=== PATIENT | female | born 1945 | race Caucasian/White ===

== ENCOUNTER 2023-02-07 10:59 | Inpatient (IN) | payer MEDICARE, OTHER ==
[~2023-02-07] VITALS: Ht 149.9 cm; Wt 76.4 kg
[2023-02-07] MEDS ORDERED: ACETAMINOPHEN 325 MG TABLET PO PRN (13:00)
[2023-02-07] MEDS ORDERED: LOPERAMIDE 2 MG CAPSULE PO PRN (13:00)
[2023-02-07] MEDS ORDERED: CALCIUM CARBONATE 500 MG CHEW TABLET PO PRN (13:00)
[2023-02-07] MEDS ORDERED: ONDANSETRON 4 MG ORAL DISSOLVE TABLET PO PRN (13:00)
[2023-02-07] MEDS ORDERED: LACTULOSE SYRUP 10GM/15ML 30ML UDC PO PRN (13:00)
[2023-02-07] MEDS ORDERED: guaiFENesin/CODEINE 10ML UDC PO PRN (13:00)
[2023-02-07] MEDS ORDERED: Sodium Phosphate/Sodium Biphosphate ADULT enema PR PRN (13:00)
[2023-02-07] MEDS ORDERED: diphenhydrAMINE 25 MG TABLET PO PRN (13:00)
[2023-02-07] MEDS ORDERED: ALPRAZolam 0.25 MG TABLET PO PRN (13:00)
[2023-02-07] MEDS ORDERED: BISACODYL 10 MG SUPPOSITORY PR PRN (13:00)
[2023-02-07] MEDS ORDERED: DOCUSATE SODIUM 100 MG CAPSULE PO PRN (13:00)
[2023-02-07] MEDS ORDERED: MELATONIN 3 MG TABLET PO PRN (13:00)
--- NOTE | 2023-02-07 13:00 | PM&R Post Admission Assessment ---
PM&R Date of Visit: Feb 07, 2023 Time of Visit: 18:00 History of Present Illness Chief complaint: Severe pain and slow recovery following lumbar spine surgery HPI: This is a 77-year-old female of Dr. Gonzalez who presents from [facility] following an extensive lumbar spine surgery by Dr. Richard. She had surgery on 02/05/2023 and has had difficulty recovering and ambulating. She has a longstanding history of lumbar stenosis with neurogenic claudication and underwent the L3-4 TLIF/extension PSIF by Dr. Richard. Her reports she does become irritable and noncompliant for 4 days after anesthesia events. She did transport by nonemergent EMS due to inability to sit in a chair. I did speak with head of physical therapy who will take more time with her to enable her to recover. Her did report that she has been decreasing motivation for the past 1 year without any medical reason for that. Past Qpbbnvu-Sviecn-Amcnsq Hx Past Med/Social Hx: Reviewed Nursing Past Med/Soc Hx, Reviewed and Corrections made Patient Social History Marrital Status: Employed/Student: retired Alcohol Use: Denies Use Smoking Status: Never a Smoker Past Medical History Surgeries: Orthopedic Cardiac: High Cholesterol, Hypertension Genitourinary: Bladder Infection Overactive bladder Musculoskeletal: Arthritis, Chronic Back Pain PM&R Allergy/Meds/Data Review Allergies Coded Allergies: No Allergy Information Available (Unverified , 02/07/23) Home Medications Scheduled Amlodipine Besylate (Amlodipine Besylate), 5 MG PO DAILY, (Reported) Cetirizine HCl (Cetirizine HCl), 5 MG PO DAILY, (Reported) Cholecalciferol (Vitamin D3) (Vitamin D3), 25 MCG PO DAILY, (Reported) Hydrochlorothiazide (Hydrochlorothiazide), 25 MG PO DAILY, (Reported) Oxybutynin Chloride (Oxybutynin Chloride), 5 MG PO BID, (Reported) Rosuvastatin Calcium (Rosuvastatin Calcium), 5 MG PO DAILY, (Reported) Valsartan/Hydrochlorothiazide (Valsartan-Hctz 160-12.5 mg Tab), 1 EACH PO DAILY, (Reported) Vit B Cmplx 3/FA/Vit C/Biotin ([place]-[facility] Rx Tablet), 1 EACH PO DAILY, (Reported) Scheduled PRN Acetaminophen (Tylenol Extra Strength), 1,000 MG PO Q6H PRN for PAIN-MILD (1-4), (Reported) Cyclobenzaprine HCl (Cyclobenzaprine HCl), 10 MG PO Q8H PRN for SPASMS, (Reported) Famotidine (Acid Junior Assistant Manager (FAMOTIDINE)), 20 MG PO DAILY PRN for HEARTBURN, (Reported) Oxycodone HCl (Oxycodone HCl), 5 MG PO Q4H PRN for PAIN-SEVERE (8-10), (Repo rted) Current Medications Current Medications Reviewed Review of Systems Constitutional: see HPI, malaise, weakness EENTM: no symptoms reported Respiratory: no symptoms reported Cardiovascular: no symptoms reported Gastrointestinal: no symptoms reported Genitourinary: no symptoms reported Musculoskeletal: back pain, joint pain Skin: no symptoms reported Psychiatric/Neurological: No Symptoms Reported All Other Systems Reviewed Negative Unless Noted: Yes Physical Exam Physical Exam Vital Signs Capillary Refill : Height, Weight, BMI Height: '" Weight: lbs. oz. kg; BMI Method: General Appearance: WD/WN, Chronically ill, Mild Distress Eyes: Bilateral Eye Normal Inspection, Bilateral Eye PERRL HEENT: PERRL/EOMI, Normal ENT Inspection, Pharynx Normal Neck: Full Range of Motion, Normal Inspection, Non Tender, Supple, Carotid Bruit Respiratory: Chest Non Tender, Lungs Clear, Normal Breath Sounds, No Accessory Muscle Use, No Respiratory Distress Cardiovascular: Regular Rate, Rhythm, No Edema, No Gallop, No JVD, No Murmur, Normal Peripheral Pulses Gastrointestinal: Normal Bowel Sounds, No Organomegaly, No Pulsatile Mass, Non Tender, Soft Back: CVA Tenderness (L), CVA Tenderness (R), Decreased Range of Motion, Muscle Spasm, Vertebral Tenderness, Other (Wearing brace) Extremity: Normal Capillary Refill, Normal Inspection, Normal Range of Motion, Non Tender, No Calf Tenderness, No Pedal Edema Neurologic/Psychiatric: Alert, Oriented x3, 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 Norm as Tested, Abnormal Gait, Depressed Affect, Motor Weakness ( severe in lower extremities) Skin: Normal Color, Warm/Dry Lymphatic: No Adenopathy PM&R Medical Assessment & Plan REHAB/MEDICAL ASSESSMENT AND PLAN: REHAB IMPAIRMENT GROUP: Lumbar stenosis with neurogenic claudication ETIOLOGIC DIAGNOSIS: Lumbar stenosis with neurogenic claudication The comorbidities that impact the patients function and/or functional outcome by: advanced age, severe pain, slow recovery, anesthesia effect complicating motivation and comprehension REHAB PLAN: The patient is being admitted to our comprehensive inpatient rehabilitation facility and can tolerate the intensity of service consisting of at least: 180 minutes of therapy a day, 5 out of 7 days a week Rehab treatment will consist of: PT and OT will focus on regaining function with use of assistive devices and slowly initiate therapy in order to support patient's success in inpatient rehab The patient/family has a good understanding of our discharge process and will benefit from an interdisciplinary inpatient rehabilitation program. The patient has potential to make improvement and is in need of at least two of the fo llowing multidisciplinary therapies including but not limited to physical, occupational, speech, and prosthetics and orthotics. Additionally the patient will need services from respiratory, nutritional services, wound care, psychology, etc. (Customize this to each patient). Given the patients complex condition and risk of further medical complications, rehabilitation services can not be safely or effectively provided at a lower level of care such as a [facility] facility. BARRIERS TO DISCHARGE: severe slow recovery ESTIMATED LOS: 10 days DISPOSITION: home RELEVANT CHANGES SINCE PREADMISSION SCREENING: I have compared the patients medical and functional status at the time of the preadmission screening and there are: no changes PROGNOSIS: good REHABILITATION GOALS: 1. PT and OT will focus on regaining function with use of assistive devices and slowly initiate therapy in order to support patient's success in inpatient rehab All the above goals were reviewed with the patient and he/she is in agreement. By signing this document, I acknowledge that I have personally performed a full physical examination on this patient within 24 hours of admission to this inpatient rehabilitation facility and have determined the patient to be able to tolerate the above course of treatment at an intensive level for a reasonable period of time. I will be completing a detailed individualized Plan of Care for this patient by day #4 of the patients stay based upon the Preadmission Screen, the Post-Admission Evaluation, and the therapy evaluations. Admission Dx/Comorbidities: (1) Lumbar stenosis with neurogenic claudication ICD Codes: M48.062 - Spinal stenosis, lumbar region with neurogenic claudication Assessment/Plan Assessment and Plan Assess & Plan/Chief Complaint Assessment: Lumbar stenosis with neurogenic claudication status post L3-4 TLIFextension PSIF on 02/05/[address] Richard Hypertension Hyperlipidemia Advanced age Slow recovery Plan: Supportive care Monitor closely Pain controlled Slow therapy JANNIE TORRES DO Feb 07, 2023 13:00
[2023-02-07] MEDS ORDERED: HYDR25TA4 PO (13:02)
[2023-02-07] MEDS ORDERED: VIT1TABL59 PO (13:02)
[2023-02-07] MEDS ORDERED: CETI5TAB6 PO (13:02)
[2023-02-07] MEDS ORDERED: ROSU5TAB13 PO (13:02)
[2023-02-07] MEDS ORDERED: AMLO-250 PO (13:02)
[2023-02-07] MEDS ORDERED: CYCL10TA25 PO (13:02)
[2023-02-07] MEDS ORDERED: FAMO-356 PO (13:02)
[2023-02-07] MEDS ORDERED: CHOL10004 PO (13:02)
[2023-02-07] MEDS ORDERED: VALS1TAB75 PO (13:02)
[2023-02-07] MEDS ORDERED: OXYB5TAB13 PO (13:02)
[2023-02-07] MEDS ORDERED: ACET-2267 PO (13:02)
[2023-02-07] MEDS ORDERED: OXYC5TAB PO (13:02)
[2023-02-07 13:30] VITALS: BP 128/53
--- OUTSIDE RECORDS SUMMARY | 2023-02-07 13:49 | XMS REPORT | Summary of Care ---
Author Author [employer] Address Unknown Phone Unavailable Care Team Providers Care Garment Turner Name Role Phone PCP Unavailable Reason for Referral * Radiology Services (Routine) - Closed Specialty Diagnoses / Procedures Referred By Contac t Referred To Contact Diagnoses Generalized pain Procedures XR FLUORO LESS THAN 1 HOUR Ed Richard DO [address] [place] [address] Referral ID Status Reason Start Date Expiration Date Visits Re quested Visits Authorized [id number] Closed 02/05/2023 03/07/2024 1 1 Reason for Visit * Radiology Services (Routine) - Closed Specialty Diagnoses / Procedures Referred By Contac t Referred To Contact Diagnoses Generalized pain Procedures XR FLUORO LESS THAN 1 HOUR Ed Richard DO [address] [place] [address] Referral ID Status Reason Start Date Expiration Date Visits Re quested Visits Authorized [id number] Closed 02/05/2023 03/07/2024 1 1 Encounter Details Date Type Department Care Team Description 02/05/2023 6:30 AM CDT - 02/05/2023 11:59 PM CDT Hospital Encounter [facility] Radiology [id number] [place] [phone] Ed Richard DO [address] [place] [address] [place] [phone] Arrived Discharge Disposition: Home or Self Care Allergies Active Allergy Reactions Criticality Noted Date Comments Amoxicillin Cough Low 06/24/2012 Test does of Ancef given 02/05/23, tolerated it well. With no s.s. of reaction noted. Lisinopril Anaphylaxis High 03/09/2015 documented as of this encounter (statuses as of 02/06/2023) Medications Medication Sig Dispensed Refills Start Date End Date Status famotidine (PEPCID) 20 mg tablet Take 20 mg by mouth 1 time daily as needed. 0 Suspended cholecalciferol, vitamin D3, 1,000 unit Take 1,000 Units by mouth daily. 0 Suspended cetirizine (ZyrTEC) 5 mg tablet Take 5 mg by mouth daily. 0 Suspended meloxicam (MOBIC) 15 mg tablet TAKE 1 TABLET(15 MG) BY MOUTH DAILY 90 Tablet 1 07/05/2022 Suspended Additional Information amLODIPine (NORVASC) 5 mg tablet TAKE 1 TABLET(5 MG) BY MOUTH DAILY 100 Tablet 1 07/29/2022 Suspended Additional Information hydroCHLOROthiazid e 25 mg tablet TAKE 1 TABLET(25 MG) BY MOUTH DAILY 100 Tablet 1 08/26/2022 Suspended Additional Information valsartan-hydroCHL OROthiazide (DIOVAN HCT) 160-12.5 mg tablet Take 1 Tablet by mouth daily. 0 11/22/2022 Suspended vit B cmplx 3-FA-Vit C-Biotin (RENAVITE-RX RX) 1-60-300 mg-mg-mcg Tablet Take 1 Tablet by mouth daily. 0 Suspended diazePAM (Valium) 5 mg tabletIndications: Lumbar stenosis with neurogenic claudication Take 1 TAB PO 30 min before MRI, bring a front end driver 1 Tablet 0 01/22/2023 Suspended Additional Information oxyBUTYnin (DITROPAN) 5 mg tablet Take 5 mg by mouth 2 times daily. 0 01/14/2023 Suspended rosuvastatin (CRESTOR) 5 mg tablet Take 5 mg by mouth daily. 0 01/14/2023 Suspended acetaminophen (TYLENOL) 500 mg tablet Take 1,000 mg by mouth every 6 hours as needed for Pain. 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 documented as of this encounter (statuses as of 02/06/2023) Immunizations Name Administration Dates Next Due (MODERNA BIVALENT)(6 MOS UP) COVID-19 VACCINE - EMERGENCY USE AUTHORIZATION, MRNA (PF) 50 MCG/0.5 ML IM SUSP 02/28/2022 (SPIKEVAX) (12 YRS UP PRIMAR Y SERIES) COVID-19 VACCINE - MRNA-1273(PF) 100 MCG/0.5 ML IM SUSP 04/09/2021,08/13/2020,07/16/2020 INFLUENZA VACCINE HIGH DOSE QUADRIVALENT 65 YR UP PF IM 03/13/2022 INFLUENZA VACCINE QUADRIVALE NT 3 YR UP PF IM 03/05/2018,03/06/2017,02/29/2016 INFLUENZA VACCINE QUADRIVALE NT 6 MOS UP PF IM 03/13/2022,03/22/2021,03/08/2020,03/11 Influenza Vaccine High Dose 65+ Yrs IM 5 Influenza Vaccine Split 3+ Yrs IM 03/04/2014,07/2012 Pneumococcal 13-valent Conju gate Vaccine 09/12/2016 Pneumococcal Polysaccharide Vacc 23-yash IM SCHIP 09/30/2014 documented as of this encounter Social History Tobacco Use Types Packs/Day Years Used Date Smoking Tobacco: Former Cigarettes Q uit: 06/16/1999 Smokeless Tobacco: Never Alcohol Use Standard Drinks/Week Comments Yes 0 (1 standard drink = 0.6 oz pur e alcohol) occasional Financial Resource Strain Answer Date R ecorded How hard is it for you to pa y for the very basics like food, housing, medical care, and heating? Patient refused 03/25/2022 Food Insecurity Answer Date Recorded In the past 12 months, have you worried that your food would run out before you had money to buy more? Patient refused 2021 In the past 12 months, did y ou run out of food and didn't have money to buy more? Patient refused 03/25/2022 Transportation Needs Answer Date Record ed In the past 12 months, has l ack of transportation kept you from medical appointments or from getting medications? No 03/25/2022 Lack of Transportation (Non-Medical) Not on file Sex and Gender Information Value Date Recorded Sex Assigned at Not on file Gender Identity Not on file Sexual Orientation Not on file documented as of this encounter Plan of Treatment Upcoming Encounters Date Type Department Care Team Description 02/20/2023 11:30 AM CDT Office Visit [facility] Orthopedics [place] [address] [place] [phone] Ed Richard DO [address] [facility] [address] [place] [address] [place] [phone] Health Maintenance Due Date Last Done Comments DTAP/TDAP/TD VACCINES (1 - Tdap) 1964 COLORECTAL SCREENING 11/19/1991 Colorectal Cancer Screening 11/19/1991 FIT-DNA Q 3 years 11/19/1991 FIT/FOBT Q 1 year 11/19/1991 Flex Sig/CT Colonography Q 5 years 11/19/1991 ZOSTER VACCINE (1 of 2) 1996 COVID-19 Vaccine (5 - Modern a series) 06/30/2022 02/28/2022, 04/09/2021, 08/13/2020, Additional history exists INFLUENZA VACCINE (#1) 2022 , 03/13/2022, 03/22/2021, Additional history exists Traditional Medicare (ACO) A nnual Wellness Visit 03/26/2023 03/25/2022, 03/22/2021 PNEUMOCOCCAL VACCINE 65+ YEARS Completed 09/12/2016 , 09/30/2014 OSTEOPOROSIS SCREENING Completed 03/04/2017, 2016 documented as of this encounter Medical Devices Implanted Type Area Ultrasound Coordinator Device Identifier Shelf Expiration Date Model / Serial / Lot Simplex W/Tobra 6197-9-001 - [id number] Implanted:Qty : 1 on 06/25/2013 by Lamberto Gómez MD Cement Left: Knee [employer] 11/23/2014 [id number] / / [id number] Lens Io Tecnis 1pc 21.5 [id number] - [id number] Implanted:Qty : 1 on 11/08/2013 Eye Left: Eye [employer] 05/02/2017 [id number] / [id number] / Hemostatic Surgiflo 8ml W/ Thrombin 2994 - [id number] Implanted:Qty : 1 on 02/05/2023 by Ed Richard DO at [facility] Hemostatic N/A: Spine Lumbar [employer] [id number] 11/30/2023 2994 / / [id number] Patella Trthln Asym X3 5551-G-299 - [id number] Implanted:Qty : 1 on 06/25/2013 by Lamberto Gómez MD Knee Left: Knee [employer] 05/25/2018 [id number]-G-[id number] / / [id number] Reline-O 5.5x 50mm Lordotic [id number] - [id number] Implanted:Qty : 2 on 02/05/2023 by Ed Richard DO at [facility] Fox N/A: Back [employer] [id number] / / Screw Reline 5.5mm Open Tulip [id number] - [id number] Implanted:Qty : 2 on 02/05/2023 by Ed Richard DO at [facility] Screw N/A: Back [employer] [id number] / / Spacer Sable 8 [id number] 6-12mm 1172.2110s - [id number] Implanted:Qty : 1 on 02/05/2023 by Ed Richard DO at [facility] Spacer N/A: Spine Lumbar [employer] [id number] 11/12/2032 1172.2110S / / [id number] Allograft Osteocel Lrg 10ml [id number] - [id number] Implanted:Qty : 1 on 02/05/2023 by Ed Richard DO at [facility] Tissue N/A: Spine Lumbar [employer] 07/25/2027 [id number] / [id number] / documented as of this encounter Procedures Procedure Name Priority Date/Time Associated Diagnosis Comments XR FLUORO LESS THAN 1 HOUR Routine 02/05/2023 3:14 PM CDT Generalized pain documented in this encounter Results * XR FLUORO LESS THAN 1 HOUR (02/05/2023 3:14 PM CDT) Narrative 02/05/2023 3:14 PM CDT Order information only. Exam was auto-finalized. Ed Richard DO DIAGNOSTIC IMAGING O RDERABLES documented in this encounter Visit Diagnoses Diagnosis Generalized pain documented in this encounter Advance Directives For more information, please contact: [phone] Latest Code Status on File Code Status Date Activated Date Inactivated Comments Full Code 02/05/2023 4:25 PM Code Status History Code Status Date Activated Date Inactivated Comments Full Code 02/05/2023 10:07 AM 02/05/2023 4:25 PM
--- OUTSIDE RECORDS SUMMARY | 2023-02-07 13:49 | XMS REPORT | Summary of Care ---
Author Author [employer] Address Unknown Phone Unavailable Care Team Providers Care Perianesthesia Manager Name Role Phone PCP Unavailable Encounter Details Date Type Department Care Team Description 01/23/2023 8:45 AM CDT - 01/23/2023 11:59 PM CDT Hospital Encounter [facility] Pre Admission Testing [id number] [place] [phone] Ed Richard DO [address] [place] [address] [place] [id number] Arrived Discharge Disposition: Home or Self Care Allergies Active Allergy Reactions Criticality Noted Date Comments Amoxicillin Cough Low 06/24/2012 Lisinopril Anaphylaxis High 03/09/2015 documented as of this encounter (statuses as of 01/24/2023) Medications Medication Sig Dispensed Refills Start Date End Date Status famotidine (PEPCID) 20 mg tablet Take 20 mg by mouth 1 time daily as needed. 0 Active cholecalciferol, vitamin D3, 1,000 unit Take 1,000 Units by mouth daily. 0 Active cetirizine (ZyrTEC) 5 mg tablet Take 5 mg by mouth daily. 0 Active meloxicam (MOBIC) 15 mg tablet TAKE 1 TABLET(15 MG) BY MOUTH DAILY 90 Tablet 1 07/05/2022 Active amLODIPine (NORVASC) 5 mg tablet TAKE 1 TABLET(5 MG) BY MOUTH DAILY 100 Tablet 1 07/29/2022 Active hydroCHLOROthiazide 25 mg tablet TAKE 1 TABLET(25 MG) BY MOUTH DAILY 100 Tablet 1 08/26/2022 Active valsartan-hydroCHLOROt hiazide (DIOVAN HCT) 160-12.5 mg tablet Take 1 Tablet by mouth daily. 0 11/22/2022 Active vit B cmplx 3-FA-Vit C-Biotin (RENAVITE-RX RX) 1-60-300 mg-mg-mcg Tablet Take 1 Tablet by mouth daily. 0 Active diazePAM (Valium) 5 mg tabletIndications:Lumb ar stenosis with neurogenic claudication Take 1 TAB PO 30 min before MRI, bring a double bottom driver 1 Tablet 0 01/22/2023 Active oxyBUTYnin (DITROPAN) 5 mg tablet Take 5 mg by mouth 2 times daily. 0 01/14/2023 Active rosuvastatin (CRESTOR) 5 mg tablet Take 5 mg by mouth daily. 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 documented as of this encounter (statuses as of 01/24/2023) Immunizations Name Administration Dates Next Due (MODERNA [...] Cigarettes Q uit: 06/16/1999 Smokeless Tobacco: Never Tobacco Cessation:Counseling Given: Not Answered Alcohol Use Standard Drinks/Week Comments Not Currently 0 (1 standard drink = 0.6 oz pur e alcohol) Financial Resource Strain Answer Date R ecorded [...] on file documented as of this encounter Last Filed Vital Signs Vital Sign Reading Time Taken Comments Blood Pressure 160/72 01/23/2023 10:22 AM CDT Pulse 69 01/23/2023 10:22 AM CDT Temperature 36.7 C (98.1 F) 01/23/2023 10:22 AM C DT Respiratory Rate 16 01/23/2023 10:22 AM CDT Oxygen Saturation 98% 01/23/2023 10:22 AM CDT Inhaled Oxygen Concentration - - Weight 75.3 kg (166 lb) 01/23/2023 10:22 AM CDT Height 149.9 cm (4' 11") 01/23/2023 10:22 AM CDT Body Mass Index 33.53 01/23/2023 10:22 AM CDT documented in this encounter Discharge Instructions * Discharge Instructions* Jeanette Sanchez LPN - 01/23/2023 9:15 AM CDT THINGS TO REMEMBER ABOUT YOUR SURGERY ARRIVAL INSTRUCTIONS: [x] Enter through the Main Entrance on February 05 at 10:00 AM for an 11:30 AM surgery. SKIN PREP: Do not shave your surgical site at least five days before surgery. The morning and the night before surgery take a shower using antimicrobial soap (Hibiclens), after your shower dry completely, clean your surgical site with a Chloraprep swab after the evening shower, let it air dry. The morning of surgery take a shower and dry completely, clean your surgical site with the second Chloraprep swab and let it air dry. Do not wash the Chloraprep solution from your skin. Take extra precautions in caring for your skin in the time leading up to your surgery. Cuts, scrapes, craft and broken skin near your surgical site could lead to the cancellation of your procedure. DIET/FLUID INSTRUCTIONS: [x] Nothing to eat or drink after midnight. [] No Alcohol and Nicotine 24 hours prior to surgery. [] No THC 72 hours prior to surgery. FAILURE TO FOLLOW COULD MEAN CANCELLATION. ON THE DAY OF SURGERY: You will be asked to arrive 1.5-2 hours prior to your scheduled surgery time. You will change into a hospital gown and your belongings will be placed in a bag and locked in a locker, your diaz will be pinned on your hospital bed and stay with you until you are taken to your room. Once in Pre-Op, a nurse will start your IV and anesthesia will review your medical history. Prior to surgery, the surgeon will be able to answer any additional questions or concerns. You may have a visitor stay overnight in your room. Bring comfortable and loose fitting clothes or pajamas so the nursing staff can easily view your surgical site, if allowed you will be able to wear your own clothes and will be assisted with dressingif needed. Bring your own personal care items (toothbrush, toothpaste, etc.) DISCHARGE [x] Someone must be available on your day of discharge to take you home and be of assistance as needed (please arrange this prior to admission) MEDICATIONS Stop all over the counter vitamins/herbal supplements and CBD products now. Stop any NSAID'S (ie: aspirin, aleve, ibuprofen, advil, diclofenac, meloxicam, etc..) now. Tylenol is okay to take up until the night before surgery. The morning of surgery take Amlodipine and Oxybutynin only with a small sip of water. CONTINUE ALL OTHER PRESCRIPTION MEDICATIONS DIRECTED UP UNTIL THE NIGHT BEFORE SURGERY. THE DAY OF SURGERY BRING: [x] Back Brace [x] Walker (no handbrakes, no seat) DO NOT BRING ANY HOME MEDICATIONS/VITAMINS OR PAIN MEDICATIONS WITH YOU ON THE DAY OF SURGERY. IF YOU HAVE QUESTIONS: Call Jeanette at [phone] from 8:00 a.m. to 5:00 p.m. Friday through or email at [email or web address] * Attachments The following attachments cannot be sent through Care Everywhere. * Lumbar Spinal Fusion: Pre-op ([place]) * Lumbar Spinal Fusion: Post-op ([place]) documented in this encounter Plan of Treatment Upcoming Encounters Date Type Department Care Team Description 02/05/2023 10:00 AM CDT Hospital Encounter [facility] Main Operating Room [address] [facility] [place] [id number] Ed Richard, DO [address] [place] [id number] Lumbar stenosis with neurogenic claudication 02/05/2023 11:30 AM CDT - 02/05/2023 3:00 PM CDT Surgery [facility] Main Operating Room [address] [facility] [place] [phone] Ed Richard, DO [address] [place] [phone] LUMBAR INTERBODY FUSION 1 LEVEL POSTERIOR L3-4 TLIF/PSIF Pending Results Name Type Priority Associated Diagnoses Date /Time URINE CULTURE Microbiology Routine Preoperative evaluation to rule out surgical contraindication 01/23/2023 9:06 AM CDT Scheduled Orders Name Type Priority Associated Diagnoses Orde r Schedule URINE CULTURE Microbiology Routine Preoperative evaluation to rule out surgical contraindication ONE TIME for 1 Occurrences starting 01/23/2023 until 01/23/2023 Scheduled Procedures Name Priority Associated Diagnoses Date/Ti me LUMBAR INTERBODY FUSION 1 LEVEL POSTERIOR Lumbar stenosis with neurogenic claudication 02/05/2023 11:30 AM CDT Health Maintenance Due Date Last Done Comments [...] this encounter Medical Devices Implanted Type Area Advanced Clinical Specialist Device Identifier Shelf Expiration Date Model / Serial / Lot Simplex W/Tobra 6197-9-001 - [id number] Implanted:Qty: 1 on 06/25/2013 by Lamberto Gómez MD Cement Left: Knee [employer] 11/23/2014 [id number] / / [id number] Lens Io Tecnis 1pc 21.5 [id number] - [id number] Implanted:Qty: 1 on 11/08/2013 Eye Left: Eye [employer] 05/02/2017 [id number] / [id number] / Patella Trthln Asym X3 [id number] - [id number] Implanted:Qty: 1 on 06/25/2013 by Lamberto Gómez MD Knee Left: Knee [employer] 05/25/2018 [id number] / / [id number] documented as of this encounter Procedures Procedure Name Priority Date/Time Associated Diagnosis Comments CBC WITH DIFFERENTIAL Routine 01/23/2023 9:12 AM CDT Preoperative evaluation to rule out surgical contraindication TYPE AND SCREEN Routine 01/23/2023 9:12 AM CDT Preoperative evaluation to rule out surgical contraindication BASIC METABOLIC PANEL Routine 01/23/2023 9:12 AM CDT Preoperative evaluation to rule out surgical contraindication MRSA PCR RAPID SCREEN Routine 01/23/2023 9:09 AM CDT Preoperative evaluation to rule out surgical contraindication URINALYSIS WITH REFLEX CULTURE Routine 01/23/2023 9:06 AM CDT Preoperative evaluation to rule out surgical contraindication documented in this encounter Results * (ABNORMAL) BASIC METABOLIC PANEL (01/23/2023 9:12 AM CDT) SODIUM 140 136 - 145 mmol/L 01/23/2023 10:54 AM T [facility] [place] POTASSIUM 3.7 3.5 - 5.1 mmol/L 01/23/2023 10:54 AM [facility] [place] CHLORIDE 101 98 - 107 mmol/L 01/23/2023 10:54 AM [facility] [place] CO2 26 22 - 29 mmol/L 01/23/2023 10:54 AM [facility] [place] CALCIUM 10.3(H) 8.8 - 10.2 mg/dL 01/23/2023 10:54 AM [facility] [place] BUN 34(H) 8 - 23 mg/dL 01/23/2023 10:54 AM [facility] [place] CREATININE 1.37(H) 0.51 - 0.95 mg/dL 01/23/2023 10:54 AM [facility] [place] Comment:The GFR result is no t clinically significant on patients <18 or >70 years of age. GLUCOSE 104(H) 74 - 99 mg/dL 01/23/2023 10:54 AM [facility] [place] GFR 40 mL/min/1.7 3 sq meter 01/23/2023 10:54 AM [facility] [place] Comment:eGFR calculated with 2020 CKD-EPI equation. Vegetarian diet, extremely high or low muscle mass, and may affect results. Cystatin C with Glomerular Filtration Rate is a suitable alternative for these patients. ANION GAP 13 4 - 13 mmol/L 01/23/2023 10:54 AM CDT [facility] [place] Blood Venipuncture / Unknown 01/23/2023 9:12 AM CDT 01/23/2023 9:13 AM CDT Ed Richard DO CHEMISTRY ORDERABLES [facility] [place] CLIA # [id number] [address] [facility] [place] [address] * (ABNORMAL) CBC WITH DIFFERENTIAL (01/23/2023 9:12 AM CDT) WBC 6.8 4.0 - 11.0 K/uL 01/23/2023 10:18 AM [facility] [place] RBC 4.12(L) 4.20 - 5.40 M/uL 01/23/2023 10:18 AM T [facility] [place] HEMOGLOBIN 12.7 12.5 - 16.0 g/dL 01/23/2023 10:18 AM T [facility] [place] HEMATOCRIT 38.7 37.0 - 47.0 % 01/23/2023 10:18 AM T [facility] [place] MCV 93.9 78.0 - 100.0 fL 01/23/2023 10:18 AM T [facility] [place] MCH 30.8 27.0 - 34.0 pg 01/23/2023 10:18 AM [facility] [place] MCHC 32.8 31.0 - 37.0 g/dL 01/23/2023 10:18 AM [facility] [place] RDW 12.9 12.0 - 15.0 % 01/23/2023 10:18 AM [facility] [place] RDW-STDEV 44.5 37.1 - 48.7 fL 01/23/2023 10:18 AM CDT [facility] [place] PLATELETS 285 150 - 450 K/uL 01/23/2023 10:18 AM CDT [facility] [place] MPV 10.0 9.3 - 12.4 fL 01/23/2023 10:18 AM CDT [facility] [place] NEUTROPHILS 59 31 - 76 % 01/23/2023 10:18 AM CDT [facility] [place] LYMPHOCYTES 26 24 - 44 % 01/23/2023 10:18 AM [facility] [place] MONOCYTES 11 2 - 11 % 01/23/2023 10:18 AM CDT [facility] [place] EOSINOPHILS 2 0 - 6 % 01/23/2023 10:18 AM CDT [facility] [place] BASOPHILS 1 0 - 2 % 01/23/2023 10:18 AM T [facility] [place] IMMATURE GRANULOCYTES 0 0 - 2 % 01/23/2023 10:18 AM T [facility] [place] NEUTROPHIL ABSOLUTE 4.01 1.80 - 7.70 K/uL 01/23/2023 10:18 AM T [facility] [place] LYMPHOCYTE ABSOLUTE 1.79 1.00 - 4.80 K/uL 01/23/2023 10:18 AM [facility] [place] MONOCYTE ABSOLUTE 0.76 0.10 - 1.30 K/uL 01/23/2023 10:18 AM T [facility] [place] EOSINOPHIL ABSOLUTE 0.16 0.00 - 0.70 K/uL 01/23/2023 10:18 AM T [facility] [place] BASOPHILS ABSOLUTE 0.08 0.00 - 0.20 K/uL 01/23/2023 10:18 AM [facility] [place] IMMATURE GRANULOCYTES ABSOLUTE 0.02 0.00 - 0.10 K/uL 01/23/2023 10:18 AM T [facility] [place] Blood Venipuncture / Unknown 01/23/2023 9:12 AM CDT 01/23/2023 9:13 AM CDT Ed Richard DO HEMATOLOGY ORDERABLE S [facility] [place] CLIA # [id number] [address] [place] [address] * TYPE AND SCREEN (01/23/2023 9:12 AM CDT) Pathologist [facility] ABO GROUP A 01/23/2023 11:56 AM CDT [facility] [place] RH (D) TYPE Positive 01/23/2023 11:56 AM CDT [facility] [place] ANTIBODY SCREEN Negative 01/23/2023 11:56 AM CDT [facility] [place] Blood Venipuncture / Unknown 01/23/2023 9:12 AM CDT 01/23/2023 9:13 AM CDT Ed Richard DO BLOOD BANK ORDERABLE S Performing Organization Address [facility] Co de Phone Number [facility] [place] CLIA # [id number] [address] [place] [address] * MRSA PCR RAPID SCREEN (01/23/2023 9:09 AM CDT) [facility] MRSA PCR RESULT MRSA not detected MRSA not detected 01/23/2023 11:41 AM CDT [facility] Surveillance ANTERIOR NARES SWAB / Unknown Collection / Unknown 01/23/2023 9:09 AM CDT 01/23/2023 9:13 AM CDT Narrative [facility] [place] - 01/23/2023 11:41 AM CDT This assay is used to detect Methicillin-Resistant S. aureus (MRSA) colonization of the nares. PLEASE NOTE: This test has not been approved to monitor effectiveness of MRSA decolonization. Residual DNA may temporarily be present after successful decolonization. This test was performed using an FDA approved screening methodology. Ed Richard DO MICROBIOLOGY - GENER AL ORDERABLES Performing Organization Address [facility]/ZIP Co de Phone Number [facility] [place] CLIA # [id number] [address] [place] [address] * (ABNORMAL) URINALYSIS WITH REFLEX CULTURE (01/23/2023 9:06 AM CDT) COLOR UA Pale Yellow Pale to Dark Yellow 01/23/2023 10:21 AM [facility] [place] CLARITY UA Clear Clear 01/23/2023 10:21 AM [facility] [place] SPECIFIC GRAVITY UA 1.014 1.003 - 1.035 01/23/2023 10:21 AM [facility] [place] PH UA 5.5 5.0 - 8.0 01/23/2023 10:21 AM [facility] [place] LEUKOCYTE ESTERASE UA 2+(A) Negative 01/23/2023 10:21 AM [facility] [place] NITRITE UA Negative Negative 01/23/2023 10:21 AM [facility] [place] PROTEIN UA Negative Negative 01/23/2023 10:21 AM [facility] [place] GLUCOSE UA Negative Negative 01/23/2023 10:21 AM [facility] [place] KETONES UA Negative Negative 01/23/2023 10:21 AM [facility] [place] UROBILINOGEN UA <2.0 <2.0 mg/dL 10:21 AM [facility] [place] BILIRUBIN UA Negative Negative 01/23/2023 10:21 AM [facility] [place] BLOOD UA Negative Negative 01/23/2023 10:21 AM [facility] [place] WBC UA 6-10(A) 0 - 2 /hpf 01/23/2023 10:21 AM [facility] [place] RBC UA 0-2 0 - 2 /hpf 01/23/2023 10:21 AM [facility] [place] BACTERIA UA 1+(A) Negative /hpf 01/23/2023 10:21 AM [facility] [place] EPITHELIAL CELLS, URINE 0-5 0 - 5 /hpf 01/23/2023 10:21 AM [facility] [place] AMORPHOUS CRYSTAL Present(A) Absent 01/23/2023 10:21 AM [facility] [place] Urine URINE SPECIMEN OBTAINED BY CLEAN CATCH PROCEDURE / Unknown Collection / Unknown 01/23/2023 9:06 AM CDT 01/23/2023 9:06 AM CDT Narrative [facility] - 01/23/2023 10:21 AM CDT Based on results, a urine culture has been reflexed. Ed Richard DO URINE ORDERABLES [facility] CLIA # [id number] [address] [facility] [place] [address] documented in this encounter Visit Diagnoses Diagnosis Preoperative evaluation to rule out surgical contraindication Other specified pre-operative examination Lumbar stenosis with neurogenic claudication Spinal stenosis, lumbar region, with neurogenic claudication documented in this encounter documented as of this encounter
--- OUTSIDE RECORDS SUMMARY | 2023-02-07 13:49 | XMS REPORT | Summary of Care ---
Author Author [facility] Address Unknown Phone Unavailable Care Team Providers Care Investigator Cash Shortage Name Role Phone PCP Unavailable Reason for Referral * MRI (Routine) - Closed Specialty Diagnoses / Procedures Referred By Contac t Referred To Contact Radiology Diagnoses Lumbar radiculopathy Procedures MRI LUMBAR WO CONTRAST Martha Jenkins, LAMAR [address] [place] [address] [facility] [address] [address] Referral ID Status Reason Start Date Expiration Date V isits Requested Visits Authorized [id number] Closed SEKS to Schedule 12/26/2022 01/26/2024 1 1 Reason for Visit * MRI (Routine) - Closed Specialty Diagnoses / Procedures Referred By Contac t Referred To Contact Radiology Diagnoses Lumbar radiculopathy Procedures MRI LUMBAR WO CONTRAST Martha Jenkins, LAMAR [address] [place] [address] [facility] [address] [address] Referral ID Status Reason Start Date Expiration Date V isits Requested Visits Authorized [id number] Closed SEKS to Schedule 12/26/2022 01/26/2024 1 1 Encounter Details Date Type Department Care Team Description 01/07/2023 12:42 PM CDT - 01/07/2023 11:59 PM CDT Hospital Encounter [facility] [address] [place] [phone] Martha Jenkins, LAMAR [address] [place] [address] [place] [phone] Discharge Disposition: Home or Self Care Allergies Active Allergy Reactions Criticality Noted Date Comments Amoxicillin Cough Low 06/24/2012 Lisinopril Anaphylaxis High 03/09/2015 documented as of this encounter (statuses as of 01/08/2023) Medications Medication Sig Dispensed Refills Start Date End Date Status famotidine (PEPCID) 20 mg tablet Take 20 mg by mouth daily. 0 Active cholecalciferol, vitamin D3, 1,000 unit [...] MOUTH DAILY 100 Tablet 1 08/26/2022 Active valsartan-hydroCHLORO thiazide (DIOVAN HCT) 160-12.5 mg tablet Take 1 Tablet by mouth daily. 0 11/22/2022 Active vit B cmplx 3-FA-Vit C-Biotin (RENAVITE-RX RX) 1-60-300 mg-mg-mcg Tablet Take 1 Tablet by mouth daily. 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/06/2014 documented as of this encounter (statuses as of 01/08/2023) Immunizations Name Administration Dates Next Due (MODERNA [...] Tobacco: Never Alcohol Use Standard Drinks/Week Comments Not Currently [...] as of this encounter Plan of Treatment Health Maintenance Due Date Last Done Comments [...] this encounter Medical Devices Implanted Type Area Hop Sorter Device Identifier Shelf Expiration Date Model / Serial / Lot Simplex W/Tobra 6197-9-001 - [id number] Implanted:Qty: 1 on 06/25/2013 by Lamberto Gómez MD Cement Left: Knee [employer] 11/23/2014 6197-9-010 / / [id number] Lens Io Tecnis 1pc 21.5 [id number] - [id number] Implanted:Qty: 1 on 11/08/2013 Eye Left: Eye [employer] 05/02/2017 [id number] / [id number] / Patella Trthln Asym X3 5551-G-299 - [id number] Implanted:Qty: 1 on 06/25/2013 by Lamberto Gómez MD Knee Left: Knee [employer] 05/25/2018 5551-G-299 / / [id number] documented as of this encounter Procedures Procedure Name Priority Date/Time Associated Diagnosis Comments MRI LUMBAR WO CONTRAST Routine 01/07/2023 1:26 PM CDT Lumbar radiculopathy documented in this encounter Results * MRI LUMBAR WO CONTRAST (01/07/2023 1:26 PM CDT) Anatomical Region Laterality Modality Spine Magnetic Resonan ce 01/07/2023 8:0 8 PM CDT Impressions 01/07/2023 8:19 PM CDT IMPRESSION: 1. Moderate sized right paracentric disc protrusion at L2-L3 causing mild central canal and right-sided neural foraminal stenosis. 2. Large central disc protrusion at L3-L4 causing severe central canal stenosis. Electronically Signed By: Kasi Bryant MD, Signed On: 01/07/2023 8:19 PM, [email or web address] Narrative 01/07/2023 8:19 PM CDT EXAM: MRI lumbar spine without contrast. INDICATIONS: Low back pain with right lower extremity radiculopathy. TECHNIQUE: Routine MRI of lumbar spine without contrast. FINDINGS: COMPARISON: None The bone marrow signal intensity is unremarkable. There is grade 1 anterior listhesis of L4 on L5 and L5 on S1. There are surgical changes of an interbody fusion at L4-5 with pedicle screw fixation and laminectomy. The conus medullaris demonstrates normal signal intensity and morphology.The conus terminates at T12-L1. T12-L1: Unremarkable. There is no disc bulge, protrusion, or stenosis. The facet joints are unremarkable. L1-L2: Disc base narrowing and disc desiccation with mild disc bulging. There is no central canal or neural foraminal stenosis. L2-L3: Disc base narrowing and disc desiccation with posterior disc bulging and a small broad-based right paracentric disc protrusion. There is effacement of the ventral thecal sac. There is mild bilateral neural foraminal narrowing, right greater than left with effacement of the ventral surface of the right L2 nerve root. The facet joints are unremarkable. L3-L4: Disc base narrowing and disc desiccation with a large central disc protrusion causing effacement of the ventral thecal sac and narrowing of the central canal to 5 mm. There is epidural lipomatosis. Moderate facet arthrosis is present with ligamentum flavum thickening and fluid signal in both facets. There is bilateral neural foraminal narrowing and mild effacement of the undersurface of both exiting L3 nerve roots. L4-L5: Interbody fusion without central canal or neural foraminal stenosis. L5-S1: Grade 1 anterior listhesis with advanced degenerative disc disease including disc space narrowing, vacuum disc phenomenon, and disc bulging. There is advanced bilateral hypertrophic degenerative facet disease and there is intraspinal spurring. There is moderate bilateral neural foraminal narrowing and mild effacement of both exiting L5 nerve roots. There is moderate fatty atrophy of the erector spinae musculature. There is severe fatty atrophy below the fusion site. The upper sacral canal is unremarkable. There is questionable bile duct dilatation of the common bile duct. Right upper quadrant ultrasound follow-up recommended. Procedure Note Kasi Bryant MD - 01/07/2023 EXAM: MRI lumbar spine without contrast. INDICATIONS: Low back pain with right lower extremity radiculopathy. TECHNIQUE: Routine MRI of lumbar spine without contrast. FINDINGS: COMPARISON: None The bone marrow signal intensity is unremarkable. There is grade 1 anterior listhesis of L4 on L5 and L5 on S1. There aresurgical changes of an interbody fusion at L4-5 with pedicle screw fixation and laminectomy. The conus medullaris demonstrates normal signal intensity andmorphology.The conus terminates at T12-L1. T12-L1: Unremarkable. There is no disc bulge, protrusion, or stenosis. Thefacet joints are unremarkable. L1-L2: Disc base narrowing and disc desiccation with mild disc bulging.There is no central canal or neural foraminal stenosis. L2-L3: Disc base narrowing and disc desiccation with posterior discbulging and a small broad-based right paracentric disc protrusion. There is effacementof the ventral thecal sac. There is mild bilateral neural foraminalnarrowing, right greater than left with effacement of the ventral surface of theright L2 nerve root. The facet joints are unremarkable. L3-L4: Disc base narrowing and disc desiccation with a large centraldisc protrusion causing effacement of the ventral thecal sac and narrowing ofthe central canal to 5 mm. There is epidural lipomatosis. Moderate facetarthrosis is present with ligamentum flavum thickening and fluid signal in bothfacets. There is bilateral neural foraminal narrowing and mild effacement of the undersurface of both exiting L3 nerve roots. L4-L5: Interbody fusion without central canal or neural foraminalstenosis. L5-S1: Grade 1 anterior listhesis with advanced degenerative discdisease including disc space narrowing, vacuum disc phenomenon, and disc bulging.There is advanced bilateral hypertrophic degenerative facet disease and thereis intraspinal spurring. There is moderate bilateral neural foraminalnarrowing and mild effacement of both exiting L5 nerve roots. There is moderate fatty atrophy of the erector spinae musculature. Thereis severe fatty atrophy below the fusion site. The upper sacral canal is unremarkable. There is questionable bile duct dilatation of the common bile duct. Rightupper quadrant ultrasound follow-up recommended. IMPRESSION: 1. Moderate sized right paracentric disc protrusion at L2-L3 causingmild central canal and right-sided neural foraminal stenosis. 2. Large central disc protrusion at L3-L4 causing severe central canal stenosis. Electronically Signed By: Kasi Bryant MD, Signed On: 01/07/2023 8:19 PM, LUCILLE-DELFINO Martha Jenkins NP MR ORDERABLES documented in this encounter Visit Diagnoses Diagnosis Lumbar radiculopathy Thoracic or lumbosacral neuritis or radiculitis, unspecified documented in this encounter documented as of this encounter
--- OUTSIDE RECORDS SUMMARY | 2023-02-07 13:49 | XMS REPORT | Summary of Care ---
Author Author [employer] Address Unknown Phone Unavailable Care Team Providers Care Personal Attendant Name Role Phone PCP Unavailable Encounter Details Date Type Department Care Team Description 01/23/2023 9:00 AM CDT - 01/23/2023 11:59 PM CDT Hospital Encounter [facility] Radiology [address] [place] [address] Ed Richard, DO [address] [place] [address] Arrived Discharge Disposition: Home or Self [...] PO 30 min before MRI, bring a driver/sales workers 1 Tablet 0 01/22/2023 Active oxyBUTYnin (DITROPAN) [...] Description 02/05/2023 10:00 AM CDT Hospital Encounter [facility] Main Operating Room [address] [phone] Ed Richard, DO [address] [place] [phone] Lumbar stenosis with neurogenic claudication 02/05/2023 11:30 AM CDT - 02/05/2023 3:00 PM CDT Surgery [facility] Main Operating Room [address] [place] [address] Ed Richard, DO [address] [place] [phone] LUMBAR INTERBODY FUSION 1 LEVEL POSTERIOR L3-4 TLIF/PSIF Scheduled Procedures Name Priority Associated Diagnoses Date/Ti [...] this encounter Medical Devices Implanted Type Area Senior Naval Parachutist Device Identifier Shelf Expiration Date Model / Serial / Lot Simplex W/Tobra 6197-9-001 - [id number] Implanted:Qty: 1 on 06/25/2013 by Lamberto Gómez MD Cement Left: Knee [employer] 11/23/2014 6197-9-010 / / [id number] Lens Io Tecnis 1pc 21.5 [id number] - [id number] Implanted:Qty: 1 on 11/08/2013 Eye Left: Eye [employer] 05/02/2017 [id number] / [id number] / Patella Trthln Asym X3 5551-G-299 - [id number] Implanted:Qty: 1 on 06/25/2013 by Lamberto Gómez MD Knee Left: Knee [employer] 05/25/2018 [id number]-G-[id number] / / [id number] documented as of this encounter Procedures Procedure Name Priority Date/Time Associated Diagnosis Comments XR CHEST PA AND LATERAL 2 VW Routine 01/23/2023 9:19 AM CDT Preoperative evaluation to rule out surgical contraindication documented in this encounter Results * XR CHEST PA AND LATERAL 2 VW (01/23/2023 9:19 AM CDT) Anatomical Region Laterality Modality Chest Computed Radiogr aphy 01/23/2023 11:3 6 AM CDT Impressions 01/23/2023 11:37 AM CDT IMPRESSION: 1. Mild basilar atelectasis left greater than right. No gross acute consolidation. Electronically Signed By: Jeffrey Dotson MD, Signed On: 01/23/2023 11:37 AM, [id number] Narrative 01/23/2023 11:37 AM CDT CHEST, PA AND LATERAL DATE: 01/23/2023 INDICATION: Cough COMPARISON: None. FINDINGS: The heart is at the upper limits. Lungs are clear of consolidation. Minimal atelectatic changes are present left greater than right. Procedure Note Jeffrey Dotson MD - 01/23/2023 CHEST, PA AND LATERAL DATE: 01/23/2023 INDICATION: Cough COMPARISON: None. FINDINGS: The heart is at the upper limits. Lungs are clear of consolidation.Minimal atelectatic changes are present left greater than right. IMPRESSION: 1. Mild basilar atelectasis left greater than right. No gross acute consolidation. Electronically Signed By: Jeffrey Dotson MD, Signed On: 01/23/2023 11:37AM, [id number]-[id number] Ed Richard DO DIAGNOSTIC IMAGING O RDERABLES documented in this encounter Visit Diagnoses Diagnosis Preoperative evaluation to rule out surgical contraindication Other specified pre-operative examination Lumbar stenosis with neurogenic claudication Spinal stenosis, lumbar region, with neurogenic claudication documented in this encounter documented as of this encounter
--- OUTSIDE RECORDS SUMMARY | 2023-02-07 13:49 | XMS REPORT | Summary of Care ---
Author Author Cross Current [facility] Address Unknown Phone Unavailable Care Team Providers Care Machine Room Engineer Name Role Phone PCP Unavailable Reason for Visit * Auth/Cert (Routine) Specialty Diagnoses / Procedures Referred By Contac t Referred To Contact Perioperative Diagnoses Lumbar stenosis with neurogenic claudication Lumbar Stenosis Procedures ID ARTHRODESIS COMBINED TQ [id number] LUMBAR ID POSTERIOR NON-SEGMENTAL INSTRUMENTATION ID INSJ BIOMCHN DEV INTERVERTEBRAL DSC SPC W/ARTHRD ID MCCLAIN FACETEC/FORAMOT DRG ARTHRD LUMBAR 1 VRT SGM ID ALLOGRAFT FOR SPINE SURGERY ONLY MORSELIZED ID AUTOGRAFT SPINE SURGERY LOCAL FROM SAME INCISION ID ALLOGRAFT FOR SPINE SURGERY ONLY STRUCTURAL ID STEREOTACTIC COMPUTER ASSISTED PX SPINAL LUMBAR INTERBODY FUSION 1 LEVEL POSTERIOR L3-4 TLIF/PSIF Ed Richard, DO [address] [facility] [place] [id number] [facility] Main Operating Room [address] [address] Referral ID Status Reason Start Date Expiration Date Visits Re quested Visits Authorized [id number] 1 1 Encounter Details Date Type Department Care Team Description 02/05/2023 10:01 AM CDT - 02/07/2023 12:28 PM CDT Hospital Encounter [facility] Surgical [address] [id number] Ed Richard, DO [address] [place] [id number] Lumbar stenosis with neurogenic claudication Discharge Disposition: Rehab Facility IP Allergies Active Allergy Reactions Criticality Noted Date Comments Amoxicillin Cough Low 06/24/2012 Test does of Ancef given 02/05/23, tolerated it well. With no s.s. of reaction noted. Lisinopril Anaphylaxis High 03/09/2015 documented as of this encounter (statuses as of 02/07/2023) Medications Medication Sig Dispensed Refills Start Date End Date Status cyclobenzaprine (FLEXERIL) 10 mg tablet Take 1 Tablet (10 mg) by mouth every 8 hours as needed for Spasm. 30 Tablet 0 02/07/2023 Active oxyCODONE (ROXICODONE) 5 mg tabletIndications :S/P lumbar fusion Take 1 Tablet (5 mg) by mouth every 4 hours as needed for Pain. Max Daily Amount: 30 mg 40 Tablet 0 02/07/2023 Active famotidine (PEPCID) 20 mg tablet Take 20 [...] 100 Tablet 1 07/29/2022 Suspended Additional Information hydroCHLOROthiazi de 25 mg tablet TAKE 1 TABLET(25 MG) BY MOUTH DAILY 100 Tablet 1 08/26/2022 Suspended Additional Information valsartan-hydroCH LOROthiazide (DIOVAN HCT) 160-12.5 mg tablet Take 1 Tablet by mouth daily. 0 11/22/2022 Suspended vit B cmplx 3-FA-Vit C-Biotin (RENAVITE-RX RX) 1-60-300 mg-mg-mcg Tablet Take 1 Tablet by mouth daily. 0 Suspended oxyBUTYnin (DITROPAN) 5 mg tablet Take 5 mg by mouth 2 times daily. 0 01/14/2023 Suspended rosuvastatin (CRESTOR) 5 mg tablet Take 5 mg by mouth daily. 0 01/14/2023 Suspended acetaminophen (TYLENOL) 500 mg tablet Take 1,000 mg by mouth every 6 hours as needed for Pain. 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 05/06/2014 documented as of this encounter (statuses as of 02/07/2023) Immunizations Name Administration Dates Next Due (MODERNA [...] Not Answered Alcohol Use Standard Drinks/Week Comments Yes 0 [...] Sign Reading Time Taken Comments Blood Pressure 124/48 02/07/2023 11:51 AM CDT Pulse 98 02/07/2023 11:51 AM CDT Temperature 37.1 C (98.8 F) 02/07/2023 11:51 AM C DT Respiratory Rate 18 02/07/2023 11:51 AM CDT Oxygen Saturation 98% 02/07/2023 11:51 AM CDT Inhaled Oxygen Concentration - - Weight 75.3 kg (166 lb) 02/05/2023 10:39 AM CDT Height 149.9 cm (4' 11") 02/05/2023 10:39 AM CDT Body Mass Index 33.53 02/05/2023 10:39 AM CDT documented in this encounter Discharge Instructions * Discharge Instructions* Martha Jenkins NP - 02/07/2023 10:32 AM CDT Resume your usual diet prior to surgery (e.g. Diabetic, low sodium, regular.) Following activities are encouraged: Stop all tobacco use. If brace has been ordered for you, wear it when you are up and out of bed. You do not need to wear this while in bed. No lifting over 10 pounds until you are seen in the office for your follow up appt. No repetitive bending, lifting or twisting. You may lie down, sit, stand and walk on even surfaces. Walking is allowed and encouraged, several short walks a day is ideal. Sex is ok, if the soreness is improving. No driving, until after your follow up visit and cleared by your surgeon. If you do drive, do not do so within 4 hours of taking pain medicine. You can ride in a car as a passenger as much as you tolerate. No NSAIDs for 3 months. Follow up with Dr. Ed Richard in 2 weeks: [phone] Bring all medication in original container and medication lists with you to your follow up doctors appointment. Wound Care: You may shower as soon as you go home but sponge bathing is encouraged to prevent the dressings from getting wet. Change bandages only if they become saturated. Keep wound clean, dry and covered. Do not soak the incision (no bathing or swimming in pool) until after your follow up appointment. Call the office ([phone]) if you have drainage, wound separation, increasing redness or swelling around the wound or develop a fever of 101.4 or greater. Most wounds are closed with dissolvable stitches and skin glue, no ointment is needed just a dry dressing after patting/blotting dry. If Steri-strips are in place for about 10 days after surgery then it is ok to help them come off. The dissolvable stitches under the skin will continue to support the wound. documented in this encounter Progress Notes * Radha Conway RN - 02/07/2023 12:31 PM CDT Pt trasnported via [facility] to [facility] * Radha Conway RN - 02/07/2023 11:50 AM CDT Report called to Trisha CHIN at [facility]. Ems here. Pt voiding. * Radha Conway RN - 02/07/2023 11:25 AM CDT Pt up in chair, falling asleep. Family in room. Dc instructions given to pt and family. took belongings to car. * Martha Jenkins, PAPER RECLAIMING MACHINE OPERATOR - 02/07/2023 8:41 AM CDT Post-op Progress Note NAME: Glenda Wiggins : 1945 MRN; [id number] CSN: [id number] Admit Date: 02/05/2023 Hospital day: LOS: 2 days Postop day: 2 Days Post-Op Subjective: Glenda Wiggins is a 77 y.o. female s/p L3-4 TLIF/extensions PSIF, POD #2. Back pain is improved Leg pain is improved Systemic or Specific Complaints:no complaints Ambulation: required full assistance Objective: BP (!) 164/67 | Pulse 97 | Temp 99.7 F (37.6 C) | Resp 16 | Ht 4' 11" (1.499 m) | Wt 75.3 kg (166 lb) | SpO2 96% | BMI 33.53 kg/m Temp (24hrs), Av.2 F (37.3 C), Min:98.8 F (37.1 C), Max:99.7 F (37.6 C) Intake/Output Summary (Last 24 hours) at 02/07/2023 0841 Last data filed at 02/07/2023 0559 Gross per 24 hour Intake 750 ml Output 530 ml Net 220 ml General: alert, in no distress. Neuro: Stable, bilateral lower ext Ext: Calves soft, benign Abd: Soft, benign, + BS Wound: Dressing dry and intact. and hemovac present and patent. Data Review CBC: No results for input(s): "WBC", "HGB", "HCT", "PLT", "MCV" in the last 72 hours. BMP: Recent Labs 02/06/23 0544 CREAT 1.20 Assessment: Principal Problem: Lumbar stenosis with neurogenic claudication Status Post: L3-4 TLIF/extensions PSIF, POD #2 Doing well postoperatively. Requiring moderate to maximum assistance with transfers and ambulation due to pain and lack of motivation to participate in self-care. Plan: Continue PT/OT, Lumbar fusion protocol Continue current pain control regimen Bowel regimen ISB/SCDs LSO brace when OOB Remove HVD/dressing change when output is <50 mL/shift D/C planning: plan to d/c to inpatient rehab vs. SNF when accepted Instructions given and questions answered. Martha Jenkins NP 02/07/2023 * Radha Conway RN - 02/07/2023 8:11 AM CDT Pt a/o x3. Room air, in bed. Int. Vss. Lungs clear. +flatus. Voiding. Brief on. Lumbar dressing c/d/I, hemovac intact. Pt offered to get out of bed for breakfast, toliet. Pt declines. Encouraged to ambulate, sit in chair. Educated on risks of pneumonia, ileus, blood clots. IS encouraged/educated, now using IS 200ml, encouraged slower deep breathes. in room. Pt encouraged to get out of bed, discussed concern for skin breakdown. * Belkis Burciaga RN - 02/07/2023 6:52 AM CDT Tolerating po is on room air. Did return demo use of I.s. got up to 500. Very difficult transfer got up with max assist to bedside commode. Instructed if will not help with standing will have to get a lift to do it. Patient puts very minimal effort helping stand did use stand to sit to get her backto bed. Slept well. Did not call out for assistance. at bedside. When checked this a.m. patient was incontinent of urine turned placed on bedpan and no void in bedpan pericare given washed dried and brief placed. Instructed patient to help in any way any movement would be good. NAD * Ed Richard DO - 02/06/2023 4:26 PM CDT Post-op Progress Note NAME: Glenda Wiggins : 1945 MRN; [id number] CSN: [id number] Admit Date: 02/05/2023 Hospital day: LOS: 1 day Postop day: 1 Day Post-Op Subjective: Glenda Wiggins is a 77 y.o. female s/p L3-4 TLIF/extension PSIF, POD #1 Back pain is improved Leg pain is improved Systemic or Specific Complaints:no complaints Ambulation: with minimal assistance Objective: BP 138/64 | Pulse 79 | Temp 97.7 F (36.5 C) (Temporal) | Resp 15 | Ht 4' 11" (1.499 m) | Wt 75.3 kg (166 lb) | SpO2 92% | BMI 33.53 kg/m Temp (24hrs), Av.1 F (36.7 C), Min:96.9 F (36.1 C), Max:98.6 F (37 C) Intake/Output Summary (Last 24 hours) at 02/06/2023 1627 Last data filed at 02/06/2023 1500 Gross per 24 hour Intake 850 ml Output 2105 ml Net -1255 ml General: alert, in no distress. Neuro: Stable, bilateral lower ext Ext: Calves soft, benign Abd: Soft, benign, + BS Wound: Dressing dry and intact. Data Review CBC: No results for input(s): "WBC", "HGB", "HCT", "PLT", "MCV" in the last 72 hours. BMP: Recent Labs 02/06/23 0544 CREAT 1.20 Assessment: Principal Problem: Lumbar stenosis with neurogenic claudication Status Post: L3-4 TLIF/extension PSIF, POD #1 Doing well postoperatively. Clinically/orthopedically stable Plan: Continue PT/OT, Lumbar fusion protocol Continue current pain control regimen Bowel regimen ISB/SCDs LSO brace when OOB Remove HVD/dressing change when output <50mL/shift D/C planning: plan to d/c to home when meets criteria Instructions given and questions answered Ed Richard DO 02/06/2023 documented in this encounter H&P Notes * Ed Richard DO - 02/05/2023 12:23 PM CDT I have reviewed the past history, and there are no recent changes since the full H&P was done less than 30 days ago. The patient was examined and the exam is also unchanged. Will proceed with planned procedure as discussed with the patient and family. Full informed consent has been obtained. Ed Richard DO 02/05/2023 * Martha Jenkins NP - 02/04/2023 2:16 PM CDT Patient Name: Glenda Wiggins : 1945 Age/Sex: 77 y.o., female CSN: [id number] Attending Physician: Ed Richard DO Chief Complaint: Chief Complaint Patient presents with Follow Up OVTR Lumbar MRI Source of Information: xrays in office today Have we ever treated you before? Yes REVIEW OF SYSTEMS: (negative unless checked) History obtained from chart review and the patient. CONSTITUTIONAL [] Fever [x] Night pain [] Night sweats [] Weight gain [] Weight loss MUSCULOSKELETAL/JOINTS [x] Back pain [] Neck Pain NEUROLOGICAL [] Headaches [] Seizure Disorder [] Migraines [] Numbness/tingling [] Weakness ENDOCRINE [] Diabetes [] Thyroid Disease HEMATOLOGY [] Anemia [] Bleeding Problems [] Blood Clots [] Phlebitits [] Easy bruising URINARY [] Blood in urine [] Frequent urination [] Trouble starting urination [] Kidney disease [] Loss of bladder control RESPIRATORY [] Asthma [] Bronchitis [] Emphysema [] COPD [] Pneumonia [] Tuberculosis CARDIOVASCULAR [] Chest pain [] Shortness of breath [x] High blood pressure [] Palpitations [] Mitral valve prolapse [] Angina [] Afib [] Cardiac stents [] Pacer/defib. GASTROINTESTINAL [] Blood in stool [] Hiatal hernia [] Liver disease [] Jaundice [] Constipation [] Loss of Bowel Control CANCER [] Lung [] Breast [] Colon [] Prostate [] Skin [] Stomach [] Kidney [] Bone IMMUNOLOGICAL [] HIV Positive [] AIDS PSYCHIATRIC [] Schizophrenia [] Dementia [] Developmentally challenged WOMEN ONLY []Endometriosis [] control pills Are you ? [] Yes [x] No Subjective Subjective: History of Present Illness: Glenda Wiggins is a 77 y.o. female self-referred for a follow-up evaluation and treatment of chronic axial low back pain and to discuss the results of her updated lumbar MRI study. Patient states that she has been struggling with worsening axial mechanical low back pain for the past year. Patient has associated radicular symptoms in the bilateral lower extremities to include radiating dermatomal pain and subjective weakness, right worse than left. Symptoms are worsened with prolonged standing and walking. Patient states that her low back pain and radicular symptoms are equal in severity. She has been taking her normal meloxicam without improvement. Patient has not participated in any recent conservative treatment. She does have a history of a previous instrumented fusion per Dr. Lau several years ago. Patient denies any changes in bowel/bladder habits and or saddle anesthesia. Her symptoms seem to have progressed since her previous office visit, she states thatshe can no longer stand for very long or walk very far and is now requiring the use of a rolling walker. She also mentions a progressive loss of balance with frequent falls thus the primary reason for the rolling walker. She has no additional complaints at this time. Tried and Failed: As above Outside reports reviewed: none. Allergies: Allergies Allergen Reactions Lisinopril Anaphylaxis Amoxicillin Cough Past surgical history: Past Surgical History Past Surgical History: Procedure Laterality Date HX BLADDER SURGERY 09-29-14 HX BREAST BIOPSY HX CHOLECYSTECTOMY HX CORE NEEDLE BREAST BIOPSY Right 1989 benign HX EXCISIONAL BIOPSY Left 1979 benign HX HYSTERECTOMY 2008 total HX KNEE ARTHROSCOPY left HX KNEE REPLACEMENT HX RECTOCELE REPAIR 09/29/14 HX RECTOCELE REPAIR HX SPINAL SURGERY HX SURGICAL OTHER FACIAL SURGERY TO REMOVE TUMOR ON RIGHT SIDE OF FACE ID ARTHROCENTESIS ASPIR&/INJ MAJOR JT/BURSA W/O US Left 09/03/2017 LOCAL SACROILIAC JOINT INJECTION performed by Julio C Cabrera MD at [facility] ID ARTHRP KNE CONDYLE&PLATU MEDIAL&LAT COMPARTMENTS 06/25/2013 KNEE ARTHROPLASTY TOTAL REPLACEMENT performed by Lamberto Gómez MD at [facility] OR ID INJ SUBSTITUTE PARS PLANA/LIMBL W/WO ASPIR SPX Left 11/08/2013 EYE AIR FLUID GAS EXCHANGE performed by Pascual Gonzalez MD at [facility] ID PROCTOPEXY ABDOMINAL APPROACH ID UNLISTED PROCEDURE ANTERIOR SEGMENT EYE Left 11/08/2013 EYE MEMBRANE PEEL performed by Pascual Gonzalez MD at [facility] ID UNLISTED THERAPEUTIC PROPH/DX IV/IA NJX/NFS Left 09/03/2017 GREATER TROCHANTER BURSA INJECTION performed by Julio C Cabrera MD at [facility] ID VITRECTOMY MECHANICAL PARS PLANA Left 11/08/2013 PARS PLANA VITRECTOMY performed by Pascual Gonzalez MD at [facility] ID VITRECTOMY PARS PLANA REMOVE INT MEMB RETINA Left 11/08/2013 MACULAR REPAIR PPV performed by Pascual Gonzalez MD at [facility] ID XCAPSL CTRC RMVL INSJ IO LENS PROSTH W/O ECP 11/08/2013 CATARACT EXTRACTION WITH IOL INSERTION performed by Pascual Gonzalez MD at [facility] Past medical history: Past Medical History Past Medical History: Diagnosis Date Arthritis fingers, elbow, left knee Benign hypertension 03/09/2015 GERD (gastroesophageal reflux disease) Headache(784.0) migraines in past HTN (hypertension) Hx of seasonal allergies Hyperlipidemia Post-operative nausea and vomiting Unspecified adverse effect of anesthesia nausea, vomiting Family History Family History Problem Relation Name Age of Onset Ovarian Cancer Neg Hx Heart Disease Mother Breast Cancer Mother Heart Disease Maternal Grandmother Stroke Maternal Grandmother Cancer Neg Hx Social History Tobacco Use Smoking Status Former Types: Cigarettes Quit date: 06/16/1999 Years since quittin.5 Smokeless Tobacco Never Social History Substance and Sexual Activity Alcohol Use Not Currently Current Outpatient Medications on File Prior to Visit Medication Sig Dispense Refill valsartan-hydroCHLOROthiazide (DIOVAN HCT) 160-12.5 mg tablet Take 1 Tablet by mouth daily. vit B cmplx 3-FA-Vit C-Biotin (RENAVITE-RX RX) 1-60-300 mg-mg-mcg Tablet Take 1 Tablet by mouth daily. hydroCHLOROthiazide 25 mg tablet TAKE 1 TABLET(25 MG) BY MOUTH DAILY 100 Tablet 1 amLODIPine (NORVASC) 5 mg tablet TAKE 1 TABLET(5 MG) BY MOUTH DAILY 100 Tablet 1 meloxicam (MOBIC) 15 mg tablet TAKE 1 TABLET(15 MG) BY MOUTH DAILY 90 Tablet 1 famotidine (PEPCID) 20 mg tablet Take 20 mg by mouth daily. cholecalciferol, vitamin D3, 1,000 unit Take 1,000 Units by mouth daily. cetirizine (ZyrTEC) 5 mg tablet Take 5 mg by mouth daily. No current facility-administered medications on file prior to visit. Ten point ROS otherwise negative. Objective Objective: Ht 5' (1.524 m) | Wt 78.9 kg (174 lb) | BMI 33.98 kg/m General: Alert and oriented to person place and events; polite and cooperative; in no acute distress and without respiratory distress. -- Age appropriate responses. HEENT: Normocephalic and atraumatic, Extraocular movements intact, OP has intact, moist mucous membranes NECK: Supple with functional range of motion, and without lymphadenopathy. CV: distal pulses are palpable and equal bilaterally. CHEST: equal rise and fall of chest wall with respirations that are non-labored. ABD: non-distended, non-tender Spine/Musculoskeletal: Lumbar: ROM decreased Lumbar tenderness bilateral Hip Left negative Right negative Straight Leg Raise Left positive Right positive SUMANTH/Kemar's Left negative Right negative Musculoskeletal: MOTOR SCORE LEFT RIGHT C5 (Shoulder Abduct) 5 5 C6 (Elbow Flex) 5 5 C7 (Elbow Ext) 5 5 C8 (Wrist Ext) 5 5 T1 (PinkyAbd) 5 5 L2 (Hip Flex) 5 5 L3 (Knee Ext) 5 5 L4 (Dorsiflexion) 5 4 L5 (EHL) 5 5 S1 (Plantar Flex) 5 5 Gait: Antalgic Assistive device: Rolling walker Tone:Normal tone in upper and lower extremities. No rigidity, atrophy, or abnormal movements. Neurological: Sensation grossly intact to light touch throughout; exception decree sensation to light touch L4 dermatome right lower extremity Sensation intact to proprioception. Anal Sphincter: Deferred. TENDON REFLEXES LEFT RIGHT C5-6 (Biceps) 2 2 C6 (Brachioradialis) 1 1 C7-8 (Triceps) 1 1 L3-4 (Knee jerk) 2 2 S1-2 (Achilles) 1 1 PATHOLOGIC REFLEXES LEFT RIGHT Burns neg neg Clonus neg neg Vascular: normal X-Rays: XR LUMBAR SPINE 4+ VW Standing AP, lateral, extension, and flexion radiographs lumbar spine ordered and obtained in the office today demonstrate L4-5 instrumentation/hardware in stable position without radiographic evidence of mechanical failure. There is severe adjacent level spondylosis at L3-4. Moderate spondylosis noted at L2-3. No instability/hypermobility noted on extension of flexion views. L-MRI: Lumbar MRI 01/22/2023 MCG independently interpreted and discussed with the patient on this visit; results demonstrate previous L4-5 instrumented fusion that appears stable without recurrent nerve impingement/spinal stenosis noted; grade 1 degenerative spondylolisthesis at L5-S1 noted, chronic and unchanged when compared to previous imaging series from March 2021; there is at least moderate left-sided neuroforaminal stenosis noted at L5-S1 and severe associated spondylosis; there is severe adjacent segment spondylosis at L3-4 with associated large central to right paracentral herniated nucleus pulposus with associated severe central/lateral recess stenosis and severe bilateral facet arthrosis. Assessment Assessment and Plan: Encounter Diagnoses Name Primary? Bilateral low back pain with right-sided sciatica, unspecified chronicity Yes Lumbar stenosis with neurogenic claudication Other spondylosis with radiculopathy, lumbar region Status post lumbar spinal fusion No orders of the defined types were placed in this encounter. Plan: Treatment options were discussed with the patient in detail including both nonsurgical measures versus secondary surgery. I advised that given the patient's clinical history, presentation, findings on imaging studies and level of pain and disability, secondary surgical treatment recommended. Surgical treatment plan to include a L3-4 TLIF/PSIF, right side approach. We will also refer the patient for a cervical MRI study given her history of frequent falls and loss of balance so as to eval for possible cervical myelopathy. The surgical treatment plan was discussed with the patient in detail including the associated risks, benefits, potential complications, expected outcomes, indications and alternatives. The associated risks that were discussed included but were not limited to significant bleeding, infection, spinal fluid leaks, paralysis, damage to surrounding neurovascular and soft tissue structures, mechanical irritation and/or failure of the hardware, pseudoarthrosis, potential serious reactions to anesthesia, and potential need for secondary surgical procedures. All of the patient's questions have been addressed and answered to their satisfaction. The patient has given informed written consent to proceed as planned. Patient is prescribed LSO Brace to be used pre and post operatively for lumbar core stabilization. Martha Jenkins NP, 02/04/2023 2:16 PM documented in this encounter Consult Notes * Roseanne Kuhn DO - 02/06/2023 7:27 PM CDT Images from the original note were not included. Hospitalist Consult PATIENT: Glenda Wiggins AGE: 77 y.o. CSN: [id number] : 1945 Date of Consult: 02/06/2023 Requesting Physician: Ed Richard DO PCP: No primary care provider on file. Reason for Consult: Medical Management Post-Op HPI: Glenda Wiggins is a 77 y.o. female admitted for Lumbar stenosis with neurogenic claudication. I was asked to consult for HTN and GERD. PCP: Dr. Gonzalez Pt does not smoke or drink Pt does not use O2 or CPAP Pt is Post-Op Day 1 Pain is well controlled Vitals remain stable Pt is using IS as instructed Pt is voiding well at this time Pt is ambulating around well Allergies: Allergies Allergen Reactions Lisinopril Anaphylaxis Amoxicillin Cough Test does of Ancef given 02/05/23, tolerated it well. With no s.s. of reaction noted. PMHx: Past Medical History: Diagnosis Date Arthritis fingers, elbow, left knee Benign hypertension 03/09/2015 GERD (gastroesophageal reflux disease) Headache(784.0) migraines in past HTN (hypertension) Hx of seasonal allergies Hyperlipidemia Overactive bladder Post-operative nausea and vomiting Unspecified adverse effect of anesthesia nausea, vomiting PSHx: Past Surgical History: Procedure Laterality Date HX BLADDER SURGERY 09-29-14 bladder sling HX BREAST BIOPSY HX CHOLECYSTECTOMY HX CORE NEEDLE BREAST BIOPSY Right 1989 benign HX EXCISIONAL BIOPSY Left 1979 benign HX HYSTERECTOMY 2008 total HX KNEE ARTHROSCOPY left HX KNEE REPLACEMENT HX RECTOCELE REPAIR 09/29/14 HX SPINAL SURGERY HX SURGICAL OTHER FACIAL SURGERY TO REMOVE TUMOR ON RIGHT SIDE OF FACE ID ARTHROCENTESIS ASPIR&/INJ MAJOR JT/BURSA W/O US Left 09/03/2017 LOCAL SACROILIAC JOINT INJECTION performed by Julio C Cabrera MD at [facility] ID ARTHRODESIS COMBINED TQ 1NTRSPC LUMBAR N/A 02/05/2023 LUMBAR INTERBODY FUSION 1 LEVEL POSTERIOR L3-4 TLIF/PSIF performed by Ed Richard DO at [facility] ID ARTHRP KNE CONDYLE&PLATU MEDIAL&LAT COMPARTMENTS 06/25/2013 KNEE ARTHROPLASTY TOTAL REPLACEMENT performed by Lamberto Gómez MD at [facility] OR ID INJ SUBSTITUTE PARS PLANA/LIMBL W/WO ASPIR SPX Left 11/08/2013 EYE AIR FLUID GAS EXCHANGE performed by Pascual Gonzalez MD at [facility] ID PROCTOPEXY ABDOMINAL APPROACH ID UNLISTED PROCEDURE ANTERIOR SEGMENT EYE Left 11/08/2013 EYE MEMBRANE PEEL performed by Pascual Gonzalez MD at [facility] ID UNLISTED THERAPEUTIC PROPH/DX IV/IA NJX/NFS Left 09/03/2017 GREATER TROCHANTER BURSA INJECTION performed by Julio C Cabrera MD at [facility] ENDO ID VITRECTOMY MECHANICAL PARS PLANA Left 11/08/2013 PARS PLANA VITRECTOMY performed by Pascual Gonzalez MD at [facility] ID VITRECTOMY PARS PLANA REMOVE INT MEMB RETINA Left 11/08/2013 MACULAR REPAIR PPV performed by Pascual Gonzalez MD at [facility] ID XCAPSL CTRC RMVL INSJ IO LENS PROSTH W/O ECP 11/08/2013 CATARACT EXTRACTION WITH IOL INSERTION performed by Pascual Gonzalez MD at [facility] Home Medications: Medications Prior to Admission Medication Sig Dispense Refill Last Dose acetaminophen (TYLENOL) 500 mg tablet Take 1,000 mg by mouth every 6 hours as needed for Pain. 02/05/2023 at 0730 oxyBUTYnin (DITROPAN) 5 mg tablet Take 5 mg by mouth 2 times daily. 02/04/2023 rosuvastatin (CRESTOR) 5 mg tablet Take 5 mg by mouth daily. 02/04/2023 valsartan-hydroCHLOROthiazide (DIOVAN HCT) 160-12.5 mg tablet Take 1 Tablet by mouth daily. Past Week hydroCHLOROthiazide 25 mg tablet TAKE 1 TABLET(25 MG) BY MOUTH DAILY 100 Tablet 1 02/04/2023 amLODIPine (NORVASC) 5 mg tablet TAKE 1 TABLET(5 MG) BY MOUTH DAILY 100 Tablet 1 02/05/2023 at 0730 famotidine (PEPCID) 20 mg tablet Take 20 mg by mouth 1 time daily as needed. 02/04/2023 cetirizine (ZyrTEC) 5 mg tablet Take 5 mg by mouth daily. 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 01/26/2023 meloxicam (MOBIC) 15 mg tablet TAKE 1 TABLET(15 MG) BY MOUTH DAILY 90 Tablet 1 01/26/2023 cholecalciferol, vitamin D3, 1,000 unit Take 1,000 Units by mouth daily. 01/26/2023 Social Hx: Social History Tobacco Use Smoking status: Former Types: Cigarettes Quit date: 06/16/1999 Years since quittin.6 Smokeless tobacco: Never Substance Use Topics Alcohol use: Yes Comment: occasional Family Hx: Family History Problem Relation Name Age of Onset Ovarian Cancer Neg Hx Heart Disease Mother Breast Cancer Mother Heart Disease Maternal Grandmother Stroke Maternal Grandmother Cancer Neg Hx Review of Systems Constitutional- no fever, sweats, night sweats, change in fatigue level EYE- no blurred vision, double vision ENT-, no difficulty swallowing, no symptoms of oral candidiasis Lungs- no complaint of respiratory distress, no wheezing CV- no chest pain, palpitation GI- no nausea, vomiting, diarrhea, no abdominal pain - no difficulty voiding, no flank pain MS- no significant edema 10 system review is otherwise negative except as discussed above. Physical: Patient Vitals for the past 8 hrs: BP Temp Temp src Resp SpO2 02/06/23 1700 134/50 99.2 F (37.3 C) Oral 15 92 % 02/06/23 1227 138/64 -- -- -- -- General appearance: Alert, appropriate, no apparent distress Eyes: conjuctiva pink, sclera white, EOMI without nystagmus Head: normocephalic Throat: mucus membranes moist, no lesions or exudates. Neck: no carotid bruit, no palpable adenopathy or thyromegaly. Lungs: Good air movement, clear without wheezing or rhonchi Heart:- regular rate and rhythm, no murmur Abdomen: bowel sounds active, soft, nontender, nondistended. No appreciable masses or organomegaly. Extremities: No cyanosis or clubbing. No pitting edema. Pulses intact. Skin: Warm, dry. No rash or icterus on exposed areas. Neurologic: Mental status intact. Cranial nerves intact. No focal motor or sensory deficit. Data Review: CBC: Lab Results Component Value Date WBC 6.8 01/23/2023 HGB 12.7 01/23/2023 HGBPOC 12.2 02/06/2023 HCT 38.7 01/23/2023 HCTPOC 36 (L) 02/06/2023 PLT 285 01/23/2023 MCV 93.9 01/23/2023 BMP: Lab Results Component Value Date NA 140 01/23/2023 K 3.7 01/23/2023 CL 101 01/23/2023 CO2 26 01/23/2023 CA 10.3 (H) 01/23/2023 BUN 34 (H) 01/23/2023 CREAT 1.20 02/06/2023 CREAT 1.37 (H) 01/23/2023 GLUCOSE 104 (H) 01/23/2023 ANIONGAP 13 01/23/2023 BCRATIO 27 (H) 03/21/2022 Assessment: Principal Problem: Lumbar stenosis with neurogenic claudication HTN GERD Plan: Aggressive IS use Conferred with RN Monitor vitals closely Maintain bowel regimen Participate in PT Pain management Reviewed meds and labs Roseanne Kuhn DO 02/06/2023, 7:27 PM documented in this encounter OR Notes * Operative Report - Ed Richard DO - 02/05/2023 4:10 PM CDT NAME: Glenda Wiggins : 1945 MRN; [id number] [facility]: [id number] ADMISSION DATE: 02/05/2023 OPERATIVE REPORT DATE: 02/05/2023 SURGEON: Surgeon(s) and Role: * Ed Richard DO - Primary Corporate Planning Manager: LUNA Bueno A Paleobotanist was required secondary to the complexity of the case, to hold the necessary retractors protecting vital neurovascular and soft tissue structures and to increase the efficiency and efficacy of the case. This case would not been possible without the presence of an personnel assistant. 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 Severe osseous and soft tissue lumbar spinal stenosis L3-4 with associated neurogenic claudication Intractable low back and leg pain secondary to above S/P L4-5 instrumented fusion POST-OP DIAGNOSIS: SAME PROCEDURES: Complete discectomy L3-4 Application of titanium prosthetic interbody device L3-4 Transforaminal lumbar interbody fusion L3-4, right side approach Application of nonsegmental posterior spinal instrumentation L3-4 Removal of hardware L4-5 with reinstrumentation Exploration of previous fusion L4-5 Complete right facetectomy L3-4 L3-4 laminectomy Posterolateral fusion L3-4 Use of O-Arm/Mixpo Xvision CT-guided computerized stereotactic instrumentation navigation COMPLICATIONS: None Anesthesia Type: General FINDINGS: As expected Procedure Start: 1308 Procedure End: 1515 ESTIMATED BLOOD LOSS: 50 mL SPECIMENS: * No specimens in log * IMPLANTS: Implant Name Type Inv. Item Serial No. Drywall Mechanic Lot No. [id number] No. Used Action HEMOSTATIC SURGIFLO 8ML W/ THROMBIN 2994 - [id number] Hemostatic HEMOSTATIC SURGIFLO 8ML W/ THROMBIN 2994 [employer] [id number] N/A 1 Implanted ALLOGRAFT OSTEOCEL LRG 10ML [id number] - [id number] Tissue ALLOGRAFT OSTEOCEL LRG 10ML [id number] [employer] N/A 1 Implanted SPACER SABLE 8 [id number] 6-12MM 1172.2110S - [id number] Spacer SPACER SABLE 8 [id number] 6-12MM 1172.2110S [facility] [id number] N/A 1 Implanted FOX Fox 1 Explanted FOX N/A 1 Explanted SCREW RELINE PA 6.5X45MM [id number] - [id number] Screw SCREW RELINE PA 6.5X45MM [id number] [employer] N/A 2 Implanted FOX RELINE-O 5.5X 50MM LORDOTIC [id number] - [id number] Fox FOX RELINE-O 5.5X 50MM [employer] [id number] INC N/A 2 Implanted SCREW RELINE 5.5MM OPEN TULIP [id number] - [id number] Screw SCREW RELINE 5.5MM OPEN TULIP [id number] [employer] N/A 2 Implanted FLUIDS: See anesthesia record DRAINS: Drain/Device Site 02/05/23 1500 #2 lower thoracic spine collapsible closed device (Active) INDICATIONS FOR OPERATION: This is an 77 y.o. female with a history of previous L4-5 instrumented fusion that had gone on to develop severe adjacent segment disease at the L3-4 spinal segment. As such patient had a history ofworsening axial mechanical low back pain with associated progressive radiculopathy/neurogenic claudication of her lower extremities, affecting the right slightly greater than the left. Her conditionhad become severe and progressive in nature and it failed to respond favorably to multiple conservative measures. Given the patient's clinical history and level of disability surgical treatment was recommended. After considering potential further treatment options which included conservative therapy which had failed thus far versus operative intervention, the patient wished to proceed with the operative intervention. A transforaminal interbody fusion was discussed and offered to the patient. After considering potential risks of this operative intervention, including bleeding, infection, damage to the nerve roots of the cauda equina resulting in chronic pain, chronic weakness, bowel or bladder incontinence, sexual dysfunction, stroke, cerebrospinal fluid leakage, potentially requiring further surgery for repair, positional palsies or skin abrasions and , the patient agreed to proceed. NEURO MONITORING: Standard neuro monitoring was carried out by means of real-time continuous high- quality bidirectional remote audiovisual communication to both the sound technician and surgeon. TcMeps, SSEPs, EMGs, and TOFs were carried out continuously throughout the procedure and remained stable. PROCEDURE IN DETAIL: The patient was correctly identified as Ms. Glenda Wiggins in the preoperative holding area. Her operative site was appropriately marked. She was then transferred to the operatingroom where she had successful induction of general endotracheal anesthesia. She was then placed inthe prone position on a radiolucent Lennox or table. All bony prominences were meticulously padded. Operative site was prepped and draped in the routine sterile fashion. Prior to beginning the procedure standard operating room timeout was completed and verification of infusion of appropriate prophylactic antibiotics was confirmed. C-arm fluoroscopy was then used to localize the previously placed hardware at the L4-5 spinal segment as well as the L3-4 segment which were marked on the skin with a sterile marking pen. After infusion of local anesthetic standard midline incision was made with a 10 blade scalpel incising through skin and subcutaneous tissue. Bovie cautery and Ellsworth elevator were then used to perform a bilateral paraspinal subperiosteal dissection exposing the L3-L5 spinal segments including the previously placed posterior instrumentation at the L4-5 segment. The previously placed setscrews and rods were removed from the L4-5 spinal segment bilaterally. At this point a thorough exploration of the L4-5 spinal segment was conducted to confirm whether or not a stablefusion was present. We did confirm that the L4-5 spinal segment was solidly fused, no instability was detected. The starting points for the pedicle screws bilaterally at L3 were localized and exposed. Under fluoroscopic guidance pedicle screws were placed into the pedicles bilaterally at L3 using standard transpedicular cannulation technique. Once the screws were placed neuro monitoring was used to stimulate the screws which both stimulated above the safe threshold level. Attention was then turned towards the TLIF portion of the procedure. A right sided approach was utilized. Leksell rongeur was used to remove the interspinous ligament and then a lamina paleobotanist wasplaced so as to create distraction across the L3-4 interlaminar space. High-speed bur and a seriesof curettes and Kerrison rongeurs were then used to perform a complete right L3-4 facetectomy so asto completely decompress the exiting L3 nerve root and gain access to the disc space. Neural elements were meticulously protected during discectomy. At this point the thecal sac was gently retracted medially and a large herniated nucleus pulposus was encountered. 15 blade scalpel was used to make a small annulotomy and then a nerve hook was used to liberate the HNP which was then removed in its entirety with pituitary rongeur. 15 blade scalpel was then used to extend the annulotomy and thenthe disc was removed with a series of janelle, curettes and pituitary rongeurs. We then trialed under fluoroscopic guidance so as to select the appropriately sized interbody implant. The disc spacewas packed full of local bone autograft and human allograft. The final TLIF cage was then placed into the disc space into the appropriate position under fluoroscopic guidance and then backfilled full of human allograft. High- speed bur and a series of curettes and Kerrison rongeurs were then used to perform a L3-4 laminectomy. We were able to thoroughly decompress all of the targeted neural elements at the L3-4 segment. Appropriately sized and well contoured titanium rods were then placed into the tulips of the pedicle screws from L3-L5 bilaterally followed by placement of the setscrews which were then final tightened. High-speed bur was then used to decorticate the remaining posterior elements at L3-4 followed by placement of local bone autograft and human allograft so as to completethe posterolateral fusion at the L3-4 segment. Wound was irrigated with copious amounts of sterile saline and meticulous hemostasis was achieved prior to closure. Medium Hemovac drain was placed deep to the fascia and then the wound was closed in layers in standard fashion. Sterile dressings were applied. The patient was then awakened and extubated in the operating room without incident and then transferred to the PACU in stable condition. She tolerated the procedure quite well. All counts were correct at the end of the case. Ed Richard DO 02/05/2023, 4:11 PM * Tali-OP - Ryanne Morrow RN - 02/05/2023 11:04 AM CDT 1032- Test dose of Ancef given per Dr. Richard, verbal consent received from the patient. S.S. of reaction discussed with the patient, verbalized understanding. Asked to call immediately for changes. 1050- No s.s. of reaction noted. Patient denies issues or concerns at this time. Patient reportscough, states she had a cough prior to administration of Ancef denies worsening cough. Will continue to monitor the patient. documented in this encounter Miscellaneous Notes * Discharge Planning Communication - Gina Sharpe RN - 02/07/2023 11:25 AM CDT Pt has been accepted at [facility]. All providers, nursing and family updated and agreeable. Discharge orders placed by Martha Foote Due to severe weakness will plan transport via EMS. [facility] and scheduled transport for noon today. Number for report and room number (230) given Margaret CHIN. No other discharge needs at this time. Gina Sharpe, DIAGNOSTIC CARDIAC SONOGRAPHER Nurse Navigator [phone] * Care Plan - Belkis Burciaga GIUSEPPE Davalos - 02/07/2023 6:53 AM CDT Problem: Mobility Goal: Absence of/Reduce Fall Risk r/t Mobility Deficits Description: Patient is a fall risk because of mobility deficits. A patient with mobility deficits is automatically at high risk for falls. Potential Interventions: 1. Schedule patient toileting to avoid emergency trips to the bathroom 2. If available, use floor mats next to bed or in front of chair when up 3. If applicable, remove floor mats when getting patient up and replace when leaving patient 4. Assistive devices as required, educate patient on correct use of device (walkers, shower chairs,lift equipment, etc.) 5. Exit bed on patient's strongest side 6. Gait belt easily accessible 7. Activate bed or chair alarm while in bed or up in chair 8. Get order for PT consult if appropriate 9. Patient requires 2 assist - bedpan and bed bath if 2 staff not available, bedside commode if 2 staff are available entire time 10. Slow progressive position changes if patient experiencing dizziness Outcome: Variance Problem: Mobility Goal: Absence of/Reduce Fall Risk r/t Mobility Deficits Description: Patient is a fall risk because of mobility deficits. A patient with mobility deficits is automatically at high risk for falls. Potential Interventions: 1. Schedule patient toileting to avoid emergency trips to the bathroom 2. If available, use floor mats next to bed or in front of chair when up 3. If applicable, remove floor mats when getting patient up and replace when leaving patient 4. Assistive devices as required, educate patient on correct use of device (walkers, shower chairs,lift equipment, etc.) 5. Exit bed on patient's strongest side 6. Gait belt easily accessible 7. Activate bed or chair alarm while in bed or up in chair 8. Get order for PT consult if appropriate 9. Patient requires 2 assist - bedpan and bed bath if 2 staff not available, bedside commode if 2 staff are available entire time 10. Slow progressive position changes if patient experiencing dizziness Outcome: Variance * Discharge Planning Communication - Gina Sharpe RN - 02/06/2023 5:59 PM CDT Received call from nursing that pt needs reassed for possible IPR/SNF. Original plan was home w/spouse assist but due to generalized weakness throughout the day requiring 2 person assist for transfers and ambulating, therapy no longer recommends. Met with pt along with spouse and daughters at bedside to discuss discharge needs. Discussed in detail and pt/family agreeable to [facility] I[facility]. Dr. Tong and Jose Manuel notified along with nursing. DME needs: none, has walker and brace. Ensured FU appointment scheduled and showing on AVS. Referral faxed to [facility] pending review. Will follow up with Mary in am. Gina Sharpe RN BSN Nurse Navigator [phone] * Care Plan - Ramona Schwartz RN - 02/06/2023 5:03 PM CDT Pt assisted out of bed with three assistance this morning around 0730. Pt sat in the chair for a long time this morning into the afternoon. Pt also ambulated in the room with physical therapy this morning, pt needs two assistance, pt's legs are weak. Pt ambulated into the hallway this afternoon with [employer] personnel assistant, pt needed to sit down in wheelchair to get back into bed. Pt's legs are weak.Pt needs at least two assistance getting up and ambulating. Crow friedman'ankita at 10:30 this AM, pt still needs to void. Pt tolerating diet, denies nausea. Pain controlled with O oxy. * Therapy Treatment - Ayad Suresh, Mft - 02/06/2023 3:18 PM CDT Images from the original note were not included. [facility] Acute Therapy Services Main: Acute: For questions regarding this patient's status or care, please call [phone]. PHYSICAL THERAPY Daily Note: Patient Class: Inpatient DATE: 02/06/2023 Name:Glenda Wiggins Age: 77 y.o. : 1945 CSN: [id number] PT Treatment Start Time: 1411. PT Treatment Stop Time: 1453. Total Time: 43 minutes. PT Procedures: Gait Training 39902: 33 minutes. and Therapeutic Activity 63535: 10 minutes. Patient's location: [address] [place] [address] Onset of illness/injury or date of surgery: 02/05/2023 DIAGNOSIS: Procedure: LUMBAR INTERBODY FUSION 1 LEVEL POSTERIOR L3-4 TLIF/PSIF CPT(R) Code: 96463 - ID ARTHRODESIS COMBINED TQ 1NTRSPC LUMBAR CLINICAL DIAGNOSIS: pain, weakness, decreased range of motion, impaired functional mobility, impaired ambulation, impaired balance/proprioception CHART REVIEW: Onset of illness/injury or date of surgery: 02/05/2023 Past medical history: has a past medical history of Arthritis, Benign hypertension (03/09/2015), GERD (gastroesophageal reflux disease), Headache(784.0), HTN (hypertension), seasonal allergies, Hyperlipidemia, Overactive bladder, Post-operative nausea and vomiting, and Unspecified adverse effect ofanesthesia. She has no past medical history of Anesthesia complication, BRCA1 positive, Chest pain, Deep vein thrombosis (DVT), Endometrial cancer, Injury of back, Injury of face and neck, Latex sensitivity, Malignant hyperthermia, Obstructive sleep apnea, Obstructive sleep apnea (adult) (pediatric), or Ovarian cancer. ORDERS: Physical Therapy Evaluation and Treatment Patient was identified by name and date of . Consent to treatment given by patient and Nursing SUBJECTIVE: Pain: Patient reports pain in back as a 7/10 on a 0-10 pain scale. Prior Level of Function: Independent. Living Environment: Lives with spouse/family Patient's Goal for therapy: return to a maximal level of independence with the least restrictive AD. OBJECTIVE: Note: Gait belt donned during all patient transfers and ambulation activity. Orientation: A&O x4 Patient Precautions: Lumbar Spine and Back brace when out of bed Other Pertinent Findings: IV [facility] PT Acute Care Functional Outcomes Tool 7 = Ind, 6 = Mod Ind, 5 = Sup, 4 = Min assist, 3 = Mod assist, 2 = Max assist, 1 = Total assist, 0 = N/A 7 = 201+ ft, 6 = 151-200 ft, 5 = 101-150 ft, 4 = 51-100 ft, 3 = 31-50 ft, 2 = 11-30 ft, 1= 1-10 ft 1. Bed Mobility: Lying down to sitting on EOB Deficits affecting function: weakness, balance, pain 4x2 2. Transfers: Bed to Chair (Including sit to/from stand) Deficits affecting function: weakness, balance, pain 3 3. Gait: Walking on Level Surfaces; FWW 4 4. Walking Distance: 40 x1, 30 x1 feet Comments: MIN assist. 2 KU Functional Tool Comment: TREATMENT: Gait training and transfer training provided as indicated above. ASSESSMENT: Pt displays significantly weak and debilitated state. Requires at least mod A for all transfers, and required max A x2 for EOB>supine transfer. Requires max cueing for safety awareness, sequencing, and correct AD usage with little carryover. Recommend stay at inpatient rehab/skillednursing facility due to current state Patient was seen for physical therapy services. Deficits include: pain, weakness, decreased range of motion, impaired functional mobility, impaired ambulation, impaired balance/proprioception . Patient will benefit from skilled physical therapy intervention to address the above listed deficits and improve overall functional status. Patient/family education: Transfer training, Stair Training, Gait training, Home safety, Proper use of brace/assistive device, Fall prevention, and Spine precautions, including use of brace. Patient/family response: Needs continued education to maximize level of safety/function Rehab Potential: Fair PLAN/DISCHARGE PLANNING: PT Discharge Recommendation: DC to Rehab/Skilled Care Unit PT Recommended DME: FWW Patient will be seen for physical therapy BID Friday-Friday, Daily Friday & Friday. Treatment will consist of: functional transfer training, gait training, patient/family education, and stair navigation. OR [] Discontinue with plan of care as patient no longer requires skilled physical therapy intervention, nursing informed. Upon completion of this evaluation/treatment session the patient was within reach of telephone and call light. All appropriate lines reattached: Back to bed with call light Ayad Suresh, Mft * Therapy Treatment - Taylor Nix Mft - 02/06/2023 11:05 AM CDT Images from the original note were not included. [facility] Acute Therapy Services Main: Acute: For questions regarding this patient's status or care, please call [phone]. PHYSICAL THERAPY Daily Note: Patient Class: Inpatient DATE: 02/06/2023 Name:Glenda Wiggins Age: 77 y.o. : 1945 CSN: [id number] PT Treatment Start Time: 1040. PT Treatment Stop Time: 1100. Total Time: 20 minutes. PT Procedures: Gait Training 98158: 20 minutes. Patient's location: [address] [place] [address] Onset of illness/injury or date of surgery: 02/05/2023 DIAGNOSIS: Procedure: LUMBAR INTERBODY FUSION 1 LEVEL POSTERIOR L3-4 TLIF/PSIF CPT(R) Code: 57197 - ID ARTHRODESIS COMBINED TQ 1NTRSPC LUMBAR CLINICAL DIAGNOSIS: pain, weakness, decreased range of motion, impaired functional mobility, impaired ambulation, impaired balance/proprioception, impaired functional use of extremity CHART REVIEW: Onset of illness/injury or date of surgery: 02/05/2023 Past medical history: has a past medical history of Arthritis, Benign hypertension (03/09/2015), GERD (gastroesophageal reflux disease), Headache(784.0), HTN (hypertension), seasonal allergies, Hyperlipidemia, Overactive bladder, Post-operative nausea and vomiting, and Unspecified adverse effect ofanesthesia. She has no past medical history of Anesthesia complication, BRCA1 positive, Chest pain, Deep vein thrombosis (DVT), Endometrial cancer, Injury of back, Injury of face and neck, Latex sensitivity, Malignant hyperthermia, Obstructive sleep apnea, Obstructive sleep apnea (adult) (pediatric), or Ovarian cancer. ORDERS: Physical Therapy Evaluation and Treatment Patient was identified by name and date of . Consent to treatment given by patient and Nursing SUBJECTIVE: Pain: Patient reports pain in back as a 6/10 on a 0-10 pain scale. Prior Level of Function: Independent. Living Environment: Lives with spouse/family Patient's Goal for therapy: return to a maximal level of independence with the least restrictive AD. OBJECTIVE: Note: Gait belt donned during all patient transfers and ambulation activity. Orientation: A&O x4 Patient Precautions: Lumbar Spine and Back brace when out of bed Other Pertinent Findings: IV and drain Patient Weightbearing: no restriction [facility] PT Acute Care Functional Outcomes Tool 7 = Ind, 6 = Mod Ind, 5 = Sup, 4 = Min assist, 3 = Mod assist, 2 = Max assist, 1 = Total assist, 0 = N/A 7 = 201+ ft, 6 = 151-200 ft, 5 = 101-150 ft, 4 = 51-100 ft, 3 = 31-50 ft, 2 = 11-30 ft, 1= 1-10 ft 1. Bed Mobility: Lying down to sitting on EOB Deficits affecting function: weakness, balance, pain Not assessed 2. Transfers: Bed to Chair (Including sit to/from stand) Deficits affecting function: weakness, balance, pain 3 3. Gait: Walking on Level Surfaces; FWW 4 4. Walking Distance: 20 feet Comments: CGA. 2 KU Functional Tool Comment: TREATMENT: Gait training and transfer training provided as indicated above. ASSESSMENT: Patient was seen for physical therapy services. Deficits include: pain, weakness, decreased range of motion, impaired functional mobility, impaired ambulation, impaired balance/proprioception . Patient will benefit from skilled physical therapy intervention to address the above listed deficits and improve overall functional status. Patient/family education: Transfer training, Stair Training, Gait training, Home safety, Proper use of brace/assistive device, Fall prevention, and Spine precautions, including use of brace. Patient/family response: Verbalizes and demonstrates understanding Rehab Potential: Good PLAN/DISCHARGE PLANNING: PT Discharge Recommendation: DC Home with Assistance PT Recommended DME: FWW Patient will be seen for physical therapy BID Friday-Friday, Daily Friday & Friday. Treatment will consist of: functional transfer training, gait training, patient/family education, and stair navigation. OR [] Discontinue with plan of care as patient no longer requires skilled physical therapy intervention, nursing informed. Upon completion of this evaluation/treatment session the patient was within reach of telephone and call light. All appropriate lines reattached: Up in chair with call light Taylor Nix, Mft * Therapy Evaluation - Allyssa Panda, Physical Therapist - 02/06/2023 8:48 AM CDT Images from the original note were not included. [facility] Acute Therapy Services Main: Acute: For questions regarding this patient's status or care, please call [phone]. PHYSICAL THERAPY INITIAL EVALUATION / PLAN OF CARE: Patient Class: Inpatient DATE: 02/06/2023 Name:Glenda Wiggins Age: 77 y.o. : 1945 CSN: [id number] PT Evaluation Start Time: 0810. PT Evaluation Stop Time: 0830. Total time: 20 minutes. PT Procedures: PT Evaluation Low Complexity 36529: 10 minutes and Gait Training 06013: 10 minutes. Patient's location: [address] [place] [address] Onset of illness/injury or date of surgery: 02/05/2023 DIAGNOSIS: Procedure: LUMBAR INTERBODY FUSION 1 LEVEL POSTERIOR L3-4 TLIF/PSIF CPT(R) Code: 35073 - ID ARTHRODESIS COMBINED TQ [id number] LUMBAR CLINICAL DIAGNOSIS: pain, weakness, decreased range of motion, impaired functional mobility, impaired ambulation, impaired balance/proprioception, impaired functional use of extremity CHART REVIEW: Onset of illness/injury or date of surgery: 02/05/2023 Past medical history: has a past medical history of Arthritis, Benign hypertension (03/09/2015), GERD (gastroesophageal reflux disease), Headache(784.0), HTN (hypertension), seasonal allergies, Hyperlipidemia, Overactive bladder, Post-operative nausea and vomiting, and Unspecified adverse effect ofanesthesia. She has no past medical history of Anesthesia complication, BRCA1 positive, Chest pain, Deep vein thrombosis (DVT), Endometrial cancer, Injury of back, Injury of face and neck, Latex sensitivity, Malignant hyperthermia, Obstructive sleep apnea, Obstructive sleep apnea (adult) (pediatric), or Ovarian cancer. ORDERS: Physical Therapy Evaluation and Treatment Patient was identified by name and date of . Consent to treatment given by patient and Nursing SUBJECTIVE: Pain: Patient reports pain in back as a 6/10 on a 0-10 pain scale. Prior Level of Function: Independent. Living Environment: Lives with spouse/family Patient's Goal for therapy: return to a maximal level of independence with the least restrictive AD. OBJECTIVE: Note: Gait belt donned during all patient transfers and ambulation activity. Orientation: A&O x4 Patient Precautions: Lumbar Spine and Back brace when out of bed Other Pertinent Findings: IV, drain, and henry catheter Patient Weightbearing: no restriction Range of Motion: not assessed Strength: Strength is WFL Balance: Sitting (static): Good Sitting (dynamic): Good Standing (static): Fair Standing (dynamic): Fair [facility] PT Acute Care Functional Outcomes Tool 7 = Ind, 6 = Mod Ind, 5 = Sup, 4 = Min assist, 3 = Mod assist, 2 = Max assist, 1 = Total assist, 0 = N/A 7 = 201+ ft, 6 = 151-200 ft, 5 = 101-150 ft, 4 = 51-100 ft, 3 = 31-50 ft, 2 = 11-30 ft, 1= 1-10 ft 1. Bed Mobility: Lying down to sitting on EOB Deficits affecting function: weakness, balance, pain N/a 2. Transfers: Bed to Chair (Including sit to/from stand) Deficits affecting function: weakness, balance, pain 2 3. Gait: Walking on Level Surfaces; FWW 5 4. Walking Distance: 12 feet Comments: CGA 5 KU Functional Tool Comment: TREATMENT: Gait training and transfer training provided as indicated above. ASSESSMENT: Patient was evaluated for physical therapy services. Deficits include: pain, weakness, decreased range of motion, impaired functional mobility, impaired ambulation, impaired balance/proprioception . Patient will benefit from skilled physical therapy intervention to address the above listed deficits and improve overall functional status. Patient/family education: Transfer training, Stair Training, Gait training, Home safety, Proper use of brace/assistive device, and Fall prevention Patient/family response: Verbalizes and demonstrates understanding Rehab Potential: Good PLAN/DISCHARGE PLANNING: PT Discharge Recommendation: DC Home with Assistance pending progress with therapy PT Recommended DME: FWW Patient will be seen for physical therapy BID Friday-Friday, Daily Friday & Friday. Treatment will consist of: functional transfer training, gait training, patient/family education, and stair navigation. OR [] Discontinue with plan of care as patient no longer requires skilled physical therapy intervention, nursing informed. Upon completion of this evaluation/treatment session the patient was within reach of telephone and call light. All appropriate lines reattached: Up in chair with call light GOALS to be achieved by discharge: 1. Patient will ascend/descend stairs step over step with 1 rail for safety, modified independent. 2. Patient will ambulate 100 feet with the least restrictive AD x level surfaces x SBA. 3. Patient will be SBA with all functional bed, toilet and chair transfers. Allyssa Panda, Physical Therapist * Care Plan - Jasen Augustine RN - 02/05/2023 5:35 PM CDT Pt denies any questions or concerns. documented in this encounter Plan of Treatment Upcoming Encounters Date Type Department Care Team Description 02/20/2023 11:30 AM CDT Office Visit [facility] [place] [address] [place] [phone] Ed Richard DO [address] [place] [address] [place] [phone] Scheduled Orders Name Type Priority Associated Diagnoses Order Schedule PT EVAL AND TREAT PT Routine ONE TIME for 1 Occurrences starting 02/05/2023 until 02/05/2023 OXYGEN VIA DEVICE TO KEEP O2 SAT ABOVE Respiratory Care Routine Continuous unti l discontinued starting 02/05/2023 POC ELECTROLYTES/BMP Point of Care Testing Routine EVERY DAY for 1 Occurrences starting 02/06/2023 until 02/06/2023 Health Maintenance Due Date Last Done Comments DTAP/TDAP/TD VACCINES (1 - Tdap) 1965 COLORECTAL SCREENING 11/19/1991 Colorectal Cancer Screening 11/19/1991 FIT-DNA Q 3 years 11/19/1991 FIT/FOBT Q 1 year 11/19/1991 Flex Sig/CT Colonography Q 5 years 11/19/1991 ZOSTER VACCINE (1 of 2) 1996 COVID-19 Vaccine (5 - Modern a series) 06/30/2022 02/28/2022, 04/09/2021, 08/13/2020, Additional history exists INFLUENZA VACCINE (#1) 2022 2, 03/13/2022, 03/22/2021, Additional history exists PNEUMOCOCCAL VACCINE 65+ YEARS Completed 09/12/2016 , 09/30/2014 OSTEOPOROSIS SCREENING Completed 03/04/2017, 2016 documented as of this encounter Medical Devices Implanted Type Area Drywall Mechanic Device Identifier Shelf Expiration Date Model / Serial / Lot Simplex W/Tobra 6197-9-001 - [id number] Implanted:Qty : 1 on 06/25/2013 by Lamberto Gómez MD Cement Left: Knee [employer] 11/23/2014 [id number] / / [id number] Lens Io Tecnis 1pc 21.5 [id number] - [id number] Implanted:Qty : 1 on 11/08/2013 Eye Left: Eye [employer] 05/02/2017 [id number] / [id number] / Hemostatic Surgiflo 8ml W/ Thrombin 2994 - [id number] Implanted:Qty : 1 on 02/05/2023 by Ed Richard DO at [facility] Hemostatic N/A: Spine Lumbar [employer] [id number] 11/30/2023 2994 / / [id number] Patella Trthln Asym X3 5551-G-299 - [id number] Implanted:Qty : 1 on 06/25/2013 by Lamberto Gómez MD Knee Left: Knee [employer] 05/25/2018 [id number]-G-[id number] / / [id number] Reline-O 5.5x 50mm Lordotic [id number] - [id number] Implanted:Qty : 2 on 02/05/2023 by Ed Richard DO at [facility] Fox N/A: Back [employer] [id number] / / Screw Reline 5.5mm Open Tulip [id number] - [id number] Implanted:Qty : 2 on 02/05/2023 by Ed Richard DO at [facility] Screw N/A: Back [employer] [id number] / / Spacer Sable 8 [id number] 6-12mm 1172.2110s - [id number] Implanted:Qty : 1 on 02/05/2023 by Ed Richard, DO at [facility] Spacer N/A: Spine Lumbar [employer] [id number] 11/12/2032 1172.2110S / / [id number] Allograft Osteocel Lrg 10ml [id number] - [id number] Implanted:Qty : 1 on 02/05/2023 by Ed Richard, DO at [facility] Tissue N/A: Spine Lumbar [employer] 07/25/2027 [id number] / [id number] / documented as of this encounter Procedures Procedure Name Priority Date/Time Associated Diagnosis Comments POC ELECTROLYTES/BMP Routine 02/06/2023 5:44 AM CDT LUMBAR INTERBODY FUSION 1 LEVEL POSTERIOR 02/05/2023 11:30 AM CDT Lumbar stenosis with neurogenic claudication VERIFICATION BLOOD GROUP Stat 02/05/2023 10:46 AM CDT documented in this encounter Results * (ABNORMAL) POC ELECTROLYTES/BMP (02/06/2023 5:44 AM CDT) SODIUM POC 140 136 - 145 mmol/L 02/06/2023 5:44 AM CDT [facility] POTASSIUM POC 4.3 3.5 - 5.1 mmol/L 02/06/2023 5:44 AM CDT [facility] CHLORIDE POC 105 98 - 109 mmol/L 02/06/2023 5:44 AM CDT [facility] TOTAL CO2 POC 25 22 - 31 mmol/L 02/06/2023 5:44 AM CDT [facility] BLOOD UREA NITROGEN POC 27(H) 8 - 26 mg/dL 02/06/2023 5:44 AM CDT [facility] CREATININE POC 1.20 0.60 - 1.20 mg/dL 02/06/2023 5:44 AM CDT [facility] Comment:The GFR result is no t clinically significant on patients <18 or >70 years of age. GLUCOSE POC 126(H) 74 - 99 mg/dL 02/06/2023 5:44 AM T [facility] HEMOGLOBIN POC 12.2 No Ref Range Estab g/dL 02/06/2023 5:44 AM T [facility] HEMATOCRIT POC 36(L) 37 - 47 % 02/06/2023 5:44 AM T [facility] CALCIUM IONIZED POC 5.1 4.5 - 5.2 mg/dL 02/06/2023 5:44 AM [facility] COMMENT, BMP POC Dennis's Test not applicable 02/06/2023 5:44 AM T [facility] GFR POC 47 mL/min/1. 73 sq meter 02/06/2023 5:44 AM T [facility] Comment:eGFR calculated with 2020 CKD-EPI equation. Vegetarian diet, extremely high or low muscle mass, and may affect results. Cystatin C with Glomerular Filtration Rate is a suitable alternative for these patients. Blood 02/06/2023 5:4 4 AM CDT 02/06/2023 6:12 AM CDT Ed Richard DO POINT OF CARE OLGA G [facility] Organization Address City/State/ZIP Co de Phone Number [facility] # [id number] [facility] [address] [address] * VERIFICATION BLOOD GROUP (02/05/2023 10:46 AM CDT) ABO GROUP A 02/05/2023 5:27 PM CDT [facility] [place] RH (D) TYPE Positive 02/05/2023 5:27 PM CDT [facility] [place] Blood Venipuncture / Unknown 02/05/2023 10:46 AM CDT 02/05/2023 1:55 PM CDT Ed Richard DO BLOOD BANK ORDERABLE S [facility] [place] # [id number] [facility] [place] [id number] documented in this encounter Visit Diagnoses Diagnosis Lumbar stenosis with neurogenic claudication- Primary Spinal stenosis, lumbar region, with neurogenic claudication S/P lumbar fusion Arthrodesis status documented in this encounter Administered Medications Active Administered Medications - up to 3 most recent administrations Medication Order MAR Action Action Date Dose Rate Site acetaminophen (TYLENOL) tablet 650 mg 650 mg, Oral, EVERY 6 HOURS PRN, Starting on Fri02/05/23 at 1625, Until Discontinued, Other (See Comment), See admin instructions, Routine, Post-op - Floor Given 02/07/2023 11:10 AM CDT 650 mg Inactive Administered Medications - up to 3 most recent administrations Medication Order MAR Action Action Date Dose Rate Site ceFAZolin (ANCEF,KEFZOL) 2,000 mg in sodium chloride 0.9% 50 mL IVPB 2,000 mg, IV, POST-PROCEDURE Q 8 HOURS, 2 doses, First dose on Fri02/05/23 at 2000, Last dose on Fri02/06/23 at 0400, Routine, Post-op - Floor, Antibiotic Indication: Surgical prophylaxis New Bag 02/06/2023 4:05 AM CDT 2,000 mg 100 mL/hr documented in this encounter Active and Recently Administered Medications Times are shown in CDT. Scheduled Medication Order 02/05/2023 02/06/2023 02/07/2023 amLODIPine (NORVASC) tablet 5 mg 5 mg, Oral, DAILY, First dose on Fri02/06/23 at 0900, Until Discontinued, Routine, Previous Med: amLODIPine (NORVASC) 5 mg tablet - Orig Sig - TAKE 1 TABLET(5 MG) BY MOUTH DAILY 918 (Given - Provider: Ramona Schwartz RN) 1109 (Given - Provider: Radha Conway RN) ceFAZolin (ANCEF,KEFZOL) 2,000 mg in sodium chloride 0.9% 50 mL IVPB (COMPLETED) 2,000 mg, IV, POST-PROCEDURE Q 8 HOURS, 2 doses, First dose on Fri02/05/23 at 2000, Last dose on Fri02/06/23 at 0400, Routine, Post-op - Floor, Antibiotic Indication: Surgical prophylaxis 1945 (New Bag - Provider: Hollie Mistry RN)2016 (Stopped - Provider: Hollie Mistry RN) 404 (New Bag - Provider: Hollie Mistry RN)434 (Stopped - Provider: Hollie Mistry RN) ceFAZolin (ANCEF,KEFZOL) vial 2,000 mg (COMPLETED) 2,000 mg, IV, PRE-PROCEDURE ONCE, 1 dose, Starting on Fri02/05/23 at 1007, Until Fri02/05/23 at 1216, Routine, Pre-op, Antibiotic Indication: Surgical prophylaxis 121 (Given - Provider: Srinivasa Flores CRNA - Comment: test dose given in preop) cetirizine (ZyrTEC) tablet 5 mg 5 mg, Oral, DAILY, First dose on Fri02/06/23 at 0900, Until Discontinued, Routine, Previous Med: cetirizine (ZyrTEC) 5 mg tablet - Orig Sig - Take 5 mg by mouth daily. 918 (Given - Provider: Ramona Schwartz RN) 1107 (Given - Provider: Radha Conway, GIUSEPPE) docusate sodium (COLACE) capsule 100 mg 100 mg, Oral, TWO TIMES DAILY, First dose on Fri02/05/23 at 2100, Until Discontinued, Routine, Post-op - Floor 1945 (Given - Provider: Hollie Mistry RN)2100 (Not Given - Provider: Hollie Mistry RN - Reason: Medication already given) 921 (Given - Provider: Ramona Schwartz RN)2121 (Given - Provider: Belkis Burciaga RN) 1107 (Given - Provider: Radha Conway, GIUSEPPE)2099 (Due) hydroCHLOROthiazide tablet 25 mg 25 mg, Oral, DAILY, First dose on Fri02/06/23 at 0900, Until Discontinued, Routine, Previous Med: hydroCHLOROthiazide 25 mg tablet - Orig Sig - TAKE 1 TABLET(25 MG) BY MOUTH DAILY 919 (Given - Provider: Ramona Schwartz RN) 1110 (Given - Provider: Radha Conway, GIUSEPPE) losartan (COZAAR) tablet 100 mg 100 mg, Oral, DAILY, First dose on Fri02/06/23 at 1115, Until Discontinued, Routine 1227 (Given - Provider: Ramona Schwartz RN) 1110 (Given - Provider: Radha Conway RN) naloxone (NARCAN) 0.4 mg/mL injection 0.1 mg 0.1 mg, IV, SEE ADMIN INSTRUCTIONS, Starting on Fri02/05/23 at 1343, Until Discontinued, Routine, PACU oxyBUTYnin (DITROPAN) tablet 5 mg 5 mg, Oral, TWO TIMES DAILY, First dose on Fri02/05/23 at 2100, Until Discontinued, Routine, Previous Med: oxyBUTYnin (DITROPAN) 5 mg tablet - Orig Sig - Take 5 mg by mouth 2 times daily. 194 (Given - Provider: Hollie Mistry RN)2099 (Not Given - Provider: Hollie Mistry RN - Reason: Medication already given) 09 (Given - Provider: Ramona Schwartz RN)2122 (Given - Provider: Belkis Burciaga RN) 111 (Given - Provider: Radha Conway RN)2100 (Due) rosuvastatin (CRESTOR) tablet 5 mg 5 mg, Oral, DAILY, First dose on Miriam 02/06/23 at 0900, Until Discontinued, Routine, Previous Med: rosuvastatin (CRESTOR) 5 mg tablet - Orig Sig - Take 5 mg by mouth daily. 21 (Given - Provider: Ramona Schwartz RN) 09 (Given - Provider: Radha Conway RN) Continuous Medication Order 02/05/2023 02/06/2023 02/07/2023 lactated ringers infusion (CANCELED) IV, at 75 mL/hr, CONTINUOUS, Starting on Fri02/05/23 at 1015, Until Fri02/05/23 at 1626, Routine, Pre-op 1046 (New Bag - Provider: Ryanne Morrow RN)1212 (Paused - Provider: Srinivasa Flores CRNA - Comment: Switch to gravity)1213 (Restarted - Provider: Srinivasa Flores CRNA)1220 (Continue from Pre-Op - Provider: Srinivasa Flores CRNA)1335 (Fluid Volume - Provider: Srinivasa Flores CRNA)1530 (Fluid Volume - Provider: Maurice Washington CRNA) sodium chloride 0.9% infusion IV, at 80 mL/hr, CONTINUOUS, Starting on Fri02/05/23 at 1630, Until Discontinued, Routine, Post-op - Floor 1630 (Started by Another Clinician - Provider: Jasen Augustine RN) PRN Medication Order 02/05/2023 02/06/2023 02/07/2023 acetaminophen (TYLENOL) tablet 650 mg 650 mg, Oral, EVERY 6 HOURS PRN, Starting on Fri02/05/23 at 1625, Until Discontinued, Other (See Comment), See admin instructions, Routine, Post-op - Floor 1727 (Given - Provider: Ramona Schwartz, GIUSEPPE) 1110 (Given - Provider: Radha Conway RN) bisacodyL (DULCOLAX) rectal suppository 10 mg 10 mg, Rectal, DAILY PRN, Starting on Fri02/05/23 at 1625, Until Discontinued, Constipation, Routine, Post-op - Floor BUPivacaine-EPINEPHrin e (PF) (SENSORCAINE MPF WITH EPI) 0.5 %-1:200,000 injection (CANCELED) INTRA-PROCEDURE PRN, Starting on Fri02/05/23 at 1308, Until Fri02/05/23 at 1529, Routine, Intra-op 1308 (Given - Provider: Ed Richard DO) cyclobenzaprine (FLEXERIL) tablet 10 mg 10 mg, Oral, EVERY 8 HOURS PRN, Starting on Fri02/05/23 at 1625, Until Discontinued, Spasm, Routine, Post-op - Floor famotidine (PEPCID) tablet 20 mg 20 mg, Oral, DAILY PRN, Starting on Fri02/05/23 at 1626, Until Discontinued, Dyspepsia, Routine, Previous Med: famotidine (PEPCID) 20 mg tablet - Orig Sig - Take 20 mg by mouth 1 time daily as needed. fentaNYL PF (SUBLIMAZE) 50 mcg/mL injection 25 mcg (CANCELED) 25 mcg, IV, POST-PROCEDURE Q 3 MINUTES PRN, 4 doses, Starting on Fri02/05/23 at 1343, Until Fri02/05/23 at 1644, Pain, Routine, PACU 1554 (Given - Provider: Danie Lovelace RN)1600 (Given - Provider: Danie Lovelace RN) HYDROcodone-acetaminop hen (NORCO) 5-325 mg per tablet 1 Tablet 1 Tablet, Oral, EVERY 4 HOURS PRN, Starting on Fri02/05/23 at 1625, Until Discontinued, Pain (See admin instructions), Routine, Post-op - Floor magnesium hydroxide (MILK OF MAGNESIA) oral suspension 30 mL 30 mL, Oral, DAILY PRN, Starting on Fri02/05/23 at 1625, Until Discontinued, Constipation, Routine, Post-op - Floor metoclopramide (REGLAN) 5 mg/mL injection 10 mg 10 mg, IV, EVERY 6 HOURS PRN, Starting on Fri02/05/23 at 1625, Until Discontinued, Nausea/Emesis, Routine, Post-op - Floor morphine 4 mg/mL injection 4 mg 4 mg, IV, EVERY 4 HOURS PRN, Starting on Fri02/05/23 at 1625, Until Discontinued, Pain (See admin instructions), Routine, Post-op - Floor morphine 4 mg/mL injection 4 mg 4 mg, IV, EVERY 30 MINUTES PRN, Starting on Fri02/05/23 at 1625, Until Discontinued, Pain (See admin instructions), Routine, Post-op - Floor ondansetron (ZOFRAN ODT) tablet 4 mg 4 mg, Oral, EVERY 6 HOURS PRN, Starting on Fri02/05/23 at 1625, Until Discontinued, Nausea/Emesis, Routine, Post-op - Floor ondansetron (ZOFRAN) 4 mg/2 mL injection 4 mg 4 mg, IV, EVERY 6 HOURS PRN, Starting on Fri02/05/23 at 1625, Until Discontinued, Nausea/Emesis, Routine, Post-op - Floor oxyCODONE (ROXICODONE) tablet 5 mg 5 mg, Oral, EVERY 4 HOURS PRN, Starting on Fri02/05/23 at 1625, Until Discontinued, Pain (See admin instructions), Routine, Post-op - Floor 1945 (Given - Provider: Hollie Mistry RN) 0019 (Given - Provider: Hollie Mistry RN)0742 (Given - Provider: Ramona Schwartz RN)1251 (Given - Provider: Ramona Schwartz RN)1751 (Given - Provider: Ramona Schwartz RN) 0611 (Given - Provider: Belkis L Burciaga, RN) documented in this encounter Advance Directives For more information, please contact: [phone] Latest Code Status on File Code Status Date Activated Date Inactivated Comments Full Code 02/05/2023 4:25 PM Code Status History Code Status Date Activated Date Inactivated Comments Full Code 02/05/2023 10:07 AM 02/05/2023 4:25 PM
--- OUTSIDE RECORDS SUMMARY | 2023-02-07 13:49 | XMS REPORT | Summary of Care ---
Author Author [employer] Address Unknown Phone Unavailable Care Team Providers Care Hoop Maker Name Role Phone PCP Unavailable Encounter Details Date Type Department Care Team Description 02/05/2023 6:30 AM CDT - 02/05/2023 11:59 PM CDT Hospital Encounter [facility] Radiology [address] [place] [address] Ed Richard, DO [address] [place] [address] Arrived Discharge Disposition: Home or Self [...] PO 30 min before MRI, bring a pile driver engineer 1 Tablet 0 01/22/2023 Suspended Additional Information [...] Description 02/20/2023 11:30 AM CDT Office Visit [facility] Orthoped[facility] [place] [address] [place] [address] Ed Richard DO [address] [place] [address] Health Maintenance Due Date Last Done [...] this encounter Medical Devices Implanted Type Area Scheduler Conveyor Device Identifier Shelf Expiration Date Model / Serial / Lot Simplex W/Tobra 6197-9-001 - [id number] Implanted:Qty : 1 on 06/25/2013 by Lamberto Gómez MD Cement Left: Knee [employer] 11/23/2014 6197-9-010 / / [id number] Lens Io Tecnis 1pc 21.5 [id number] - [id number] Implanted:Qty : 1 on 11/08/2013 Eye Left: Eye [employer] 05/02/2017 [id number] / [id number] / Hemostatic Surgiflo 8ml W/ Thrombin 2994 - [id number] Implanted:Qty : 1 on 02/05/2023 by Ed Richard DO at [facility] Hemostatic N/A: Spine Lumbar [employer] [id number] 11/30/2023 2994 / / [id number] Patella Trthln Asym X3 5551-G-299 - [id number] Implanted:Qty : 1 on 06/25/2013 by Lamberto Gómez MD Knee Left: Knee [employer] 05/25/2018 5551-G-299 / / [id number] Reline-O 5.5x 50mm Lordotic [id number] - [id number] Implanted:Qty : 2 on 02/05/2023 by Ed Richard, DO at [facility] Fox N/A: Back [employer] [id number] / / Screw Reline 5.5mm Open Tulip [id number] - [id number] Implanted:Qty : 2 on 02/05/2023 by Ed Richard, DO at [facility] Screw N/A: Back [employer] [id number] / / Spacer Sable 8 [id number] 6-12mm 1172.0s - [id number] Implanted:Qty : 1 on 02/05/2023 by Ed Richard, DO at [facility] Spacer N/A: Spine Lumbar [employer] [id number] 11/12/2032 1172.0S / / [id number] Allograft Osteocel Lrg 10ml [id number] - [id number] Implanted:Qty : 1 on 02/05/2023 by Ed Richard DO at [facility] Tissue N/A: Spine Lumbar [employer] 07/25/2027 [id number] / [id number] / documented as of this encounter Procedures Procedure Name Priority Date/Time Associated Diagnosis Comments XR LUMBAR SPINE 2 OR 3 VW Routine 02/05/2023 3:24 PM CDT Generalized pain documented in this encounter Results * XR LUMBAR SPINE 2 OR 3 VW (02/05/2023 3:24 PM CDT) Anatomical Region Laterality Modality Spine Computed Radiogr aphy 02/05/2023 3:4 1 PM CDT Impressions 02/05/2023 3:42 PM CDT IMPRESSION: Three-level lower lumbar versus lumbosacral spinal fusion. Spondylosis. Severe aortic calcifications. Electronically Signed By: Lamberto Garvey MD, Signed On: 02/05/2023 3:42 PM, LUCILLE-CR Narrative 02/05/2023 3:42 PM CDT LUMBAR SPINE 2 VIEWS DATE: 02/05/2023 8:31 AM INDICATION: Low back pain, lumbar spinal fusion COMPARISON: None FINDINGS: AP and lateral views of the lower lumbar spine obtained. The lowest complete disc space is not well delineated. There is 3 level lower lumbar versus lumbosacral pedicle screws posterior rods and disc replacements. Dorsal skin kranthi present. Degenerative disc and facet disease present. Severe aortic calcifications. Procedure Note Lamberto Garvey MD - 02/05/2023 LUMBAR SPINE 2 VIEWS DATE: 02/05/2023 8:31 AM INDICATION: Low back pain, lumbar spinal fusion COMPARISON: None FINDINGS: AP and lateral views of the lower lumbar spine obtained. The lowest complete disc space is not well delineated. There is 3 levellower lumbar versus lumbosacral pedicle screws posterior rods and discreplacements. Dorsal skin kranthi present. Degenerative disc and facet disease present.Severe aortic calcifications. IMPRESSION: Three-level lower lumbar versus lumbosacral spinal fusion. Spondylosis. Severe aortic calcifications. Electronically Signed By: Lamberto Garvey MD, Signed On: 02/05/2023 3:42 PM,ALR-[id number] Ed Richard DO DIAGNOSTIC IMAGING O RDERABLES documented in this encounter Visit Diagnoses Diagnosis Generalized pain documented in this encounter Advance Directives For more information, please contact: [phone] Latest Code Status on File Code Status Date Activated Date Inactivated Comments Full Code 02/05/2023 4:25 PM Code Status History Code Status Date Activated Date Inactivated Comments Full Code 02/05/2023 10:07 AM 02/05/2023 4:25 PM
--- OUTSIDE RECORDS SUMMARY | 2023-02-07 13:49 | XMS REPORT | Summary of Care ---
Author Author [employer] Address Unknown Phone Unavailable Care Team Providers Care Registered Dietitian Name Role Phone PCP Unavailable Reason for Referral * MRI (Routine) - Closed Specialty Diagnoses / Procedures Referred By Contac t Referred To Contact Radiology Diagnoses Neck pain Procedures MRI CERVICAL WO CONTRAST Ed Richard DO [address] [address] [facility] [address] [address] Referral ID Status Reason Start Date Expiration Date V isits Requested Visits Authorized [id number] Closed SEKS to Schedule 01/22/2023 02/22/2024 1 1 Reason for Visit * MRI (Routine) - Closed Specialty Diagnoses / Procedures Referred By Contac t Referred To Contact Radiology Diagnoses Neck pain Procedures MRI CERVICAL WO CONTRAST Ed Richard DO [address] [address] [facility] [address] [address] Referral ID Status Reason Start Date Expiration Date V isits Requested Visits Authorized [id number] Closed SEKS to Schedule 01/22/2023 02/22/2024 1 1 Encounter Details Date Type Department Care Team Description 01/23/2023 10:30 AM CDT - 01/23/2023 11:59 PM CDT Hospital Encounter [facility] [address] [place] [address] Ed Richard DO [address] [place] [address] [address] [place] [address] Discharge Disposition: Home or Self Care Allergies [...] PO 30 min before MRI, bring a truss driver helper 1 Tablet 0 01/22/2023 Active oxyBUTYnin (DITROPAN) [...] Description 02/05/2023 10:00 AM CDT Hospital Encounter [facility] Main Operating Room [address] [place] [address] Ed Richard, DO [address] [place] [phone] Lumbar stenosis with neurogenic claudication 02/05/2023 11:30 AM CDT - 02/05/2023 3:00 PM CDT Surgery [facility] Main Operating Room [address] [place] [address] Ed Richard, DO [address] [place] [phone] LUMBAR INTERBODY FUSION 1 LEVEL POSTERIOR L3-4 [...] 2022 2, 03/13/2022, 03/22/2021, Additional history exists Traditional Medicare (ACO) A nnual Wellness Visit 03/26/2023 03/25/2022, 03/22/2021 PNEUMOCOCCAL VACCINE 65+ YEARS Completed 09/12/2016 , 09/30/2014 OSTEOPOROSIS SCREENING Completed 03/04/2017, 2016 documented as of this encounter Medical Devices Implanted Type Area Knitting Demonstrator Device Identifier Shelf Expiration Date Model / Serial / Lot Simplex W/Tobra 6197-9-001 - [id number] Implanted:Qty: 1 on 06/25/2013 by Lamberto Gómez MD Cement Left: Knee [employer] 11/23/2014 6197-9-010 / / [id number] Lens Io Tecnis 1pc 21.5 [id number] - [id number] Implanted:Qty: 1 on 11/08/2013 Eye Left: Eye [employer] 05/02/2017 [id number] / [id number] / Patella Trthln Asym X3 5551-G-299 - [id number] Implanted:Qty: 1 on 06/25/2013 by Lamberto Gómez MD Knee Left: Knee [employer] 05/25/2018 5551-G-299 / / [id number] documented as of this encounter Procedures Procedure Name Priority Date/Time Associated Diagnosis Comments MRI CERVICAL WO CONTRAST Routine 01/23/2023 12:36 PM CDT Neck pain documented in this encounter Results * MRI CERVICAL WO CONTRAST (01/23/2023 12:36 PM CDT) Anatomical Region Laterality Modality Spine Magnetic Resonan ce 01/23/2023 1:3 9 PM CDT Impressions 01/23/2023 1:44 PM CDT IMPRESSION: Multilevel disc space changes with lateral recess and foraminal narrowing most severe at C6-7. Central canal narrowing at C6-7 with the ventral portion of the the thecal sac and ventral cord AP diameter of the spinal canal measuring just less than 9 mm. Right-sided foraminal narrowing at C5-6 largely associated with facet arthropathy. Bilateral foraminal and central canal narrowing secondary to a large disc osteophyte complex posteriorly at C4-5. Electronically Signed By: Jeffrey Dotson MD, Signed On: 01/23/2023 1:44 PM, DESKTOP-PHLPIQF Narrative 01/23/2023 1:44 PM CDT MRI CERVICAL SPINE WITHOUT CONTRAST DATE: 01/23/2023 INDICATION: Neck pain TECHNIQUE: Magnetic resonance imaging of the cervical spine was performed to evaluate the spinal canal and contents. No IV contrast was administered. COMPARISON: None. FINDINGS: Alignment: The alignment of the cervical spine appears maintained. Vertebral bodies: Vertebral body heights appear maintained. Marrow signal: The marrow signal within the vertebral bodies appears within normal limits. No marrow edema identified. No marrow replacing lesions. Cervical medullary junction: Mild bulging of the posterior longitudinal ligament is secondary to degenerative change at C1-C2. Spinal cord: Diffuse cord signal heterogeneity is noted without definitive cord lesion. C2-C3: Mild diffuse disc bulging is greatest near the midline causing mild central canal narrowing. C3-C4: Moderate diffuse disc bulging is noted greatest near the midline causing mild to moderate central canal stenosis compounded by facet arthropathy C4-C5: Moderate diffuse disc bulging and disc osteophyte complexes are noted. Central canal stenosis is noted measuring 9 mm. Lateral recess and foraminal stenosis is noted bilaterally at this level. C5-C6: Mild anterior listhesis is noted. Diffuse disc osteophyte complexes compromise the foraminal regions with more significant compromise on the right secondary to facet arthropathy C6-C7: Diffuse posterior disc osteophyte complex compromises the lateral recess and foraminal regions bilaterally. There is central canal compromise with a significant impression on the ventral cord AP diameter of the spinal canal measuring 9 mm. C7-T1: Diffuse disc protrusion is noted causing central canal narrowing. Less severe foraminal stenosis is noted. Procedure Note Jeffrey Dotson MD - 01/23/2023 MRI CERVICAL SPINE WITHOUT CONTRAST DATE: 01/23/2023 INDICATION: Neck pain TECHNIQUE: Magnetic resonance imaging of the cervical spine was performedto evaluate the spinal canal and contents. No IV contrast wasadministered. COMPARISON: None. FINDINGS: Alignment: The alignment of the cervical spine appears maintained. Vertebral bodies: Vertebral body heights appear maintained. Marrow signal: The marrow signal within the vertebral bodies appearswithin normal limits. No marrow edema identified. No marrow replacing lesions. Cervical medullary junction: Mild bulging of the posterior longitudinalligament is secondary to degenerative change at C1-C2. Spinal cord: Diffuse cord signal heterogeneity is noted without definitivecord lesion. C2-C3: Mild diffuse disc bulging is greatest near the midline causingmild central canal narrowing. C3-C4: Moderate diffuse disc bulging is noted greatest near the midlinecausing mild to moderate central canal stenosis compounded by facet arthropathy C4-C5: Moderate diffuse disc bulging and disc osteophyte complexes arenoted. Central canal stenosis is noted measuring 9 mm. Lateral recess andforaminal stenosis is noted bilaterally at this level. C5-C6: Mild anterior listhesis is noted. Diffuse disc osteophytecomplexes compromise the foraminal regions with more significant compromise on theright secondary to facet arthropathy C6-C7: Diffuse posterior disc osteophyte complex compromises the lateralrecess and foraminal regions bilaterally. There is central canal compromise witha significant impression on the ventral cord AP diameter of the spinalcanal measuring 9 mm. C7-T1: Diffuse disc protrusion is noted causing central canal narrowing.Less severe foraminal stenosis is noted. IMPRESSION: Multilevel disc space changes with lateral recess and foraminal narrowingmost severe at C6-7. Central canal narrowing at C6-7 with the ventral portionof the the thecal sac and ventral cord AP diameter of the spinal canal measuringjust less than 9 mm. Right-sided foraminal narrowing at C5-6 largely associatedwith facet arthropathy. Bilateral foraminal and central canal narrowing secondary to a largedisc osteophyte complex posteriorly at C4-5. Electronically Signed By: Jeffrey Dotson MD, Signed On: 01/23/2023 1:44PM, DESKTOP-PHLPIQF Ed Richard DO MR ORDERABLES documented in this encounter Visit Diagnoses Diagnosis Neck pain Cervicalgia Lumbar stenosis with neurogenic claudication Spinal stenosis, lumbar region, with neurogenic claudication documented in this encounter documented as of this encounter
--- NOTE | 2023-02-07 13:56 | Physical Therapy Evaluation ---
PT Evaluation-General Medical Diagnosis Admission Date Feb 07, 2023 at 13:15 Medical Diagnosis: Lumbar stenosis neurogenic claudication Onset Date: Feb 05, 2023 Therapy Diagnosis Therapy Diagnosis: Weakness; Decreased functional mobility Precautions Precautions/Isolations: Fall Prevention, Standard Precautions Back precautions; LSO when OOB Weight Bear Status Right Lower Extremity: Right Weight Bearing/Tolerated Left Lower Extremity: Left Weight Bearing/Tolerated Referral Physician: Hattie Reason for Referral: Evaluation/Treatment Medical History Pertinent Medical History: GERD, HTN Additional Medical History OA, HTN, GERD, BLANCAS, HLD, Overactive bladder Current History S/P L3-4 TLIF/extension PSIF on 02/05/23; Admitted to ARU on 02/07/23 Reviewed History: Yes Social History Home: Single Level Current Living Status: Significant Other Entry Into Home: Stairs With Railing PT Steps Into Home: 2 (2-3 steps in to home; 2 in front with B HR and 3 steps in back with R HR and wall on the L side ) PT Steps Inside Home: 1 (with 1 HR ) Pt lives in a single story home with her ; 2-3 steps to enter with HRs; Walk-in shower with SC, GBs, tall toilet Prior Prior Level of Function SCALE: Activities may be completed with or without assistive devices. 9-Xwnchwdghl-fqdhiet completes the activity by him/herself with no assistance from a helper. 5-Set-up or Clean-up Assistance-helper sets up or cleans up; patient completes activity. Lawai assists only prior to or following the activity. 4-Supervision or Touching Assistance-helper provides verbal cues and/or touching/steadying and/or contact guard assistance as patient completes ac tivity. Assistance may be provided throughout the activity or intermittently. 3-Partial/Moderate Assistance-helper does LESS THAN HALF the effort. Lawai lifts, holds or supports trunk or limbs, but provides less than half the effort. 2-Substantial/Maximal Assistance-helper does MORE THAN HALF the effort. Lawai lifts or holds trunk or limbs and provides more than half the effort. 4-Sqhomrjst-hmzyqy does ALL the effort. Patient does none of the effort to complete the activity. Or, the assistance of 2 or more helpers is required for the patient to complete the activity. If activity was not attempted, code reason: 7-Patient Refused. 9-Not Applicable-not attempted and the patient did not perform the activity before the current illness, exacerbation or injury. 10-Not Attempted due to Environmental Limitations-(lack of equipment, weather restraints, etc.). 88-Not Attempted due to Medical Conditions or Safety Concerns. Bed Mobility: 6 Transfers (B,C,W/C): 6 Gait: 6 Stairs: 6 Wheelchair Mobility: 9 Indoor Mobility (Ambulation): Independent Stairs: Independent Prior Devices Use: Motorized scooter (for longer distances ), Walker (4WW) Prior Device Use: 4WW At PLOF pt was Ind with with the 4WW for shorter distances and has an electric scooter for longer distances outside the home. PT Evaluation-Current Subjective Pt is agreeable to PT Pt reports LBP at 11/09. Pain Numeric Pain Scale: 6 Location: Lower Location Body Site: Back Pain Description: Ache Section J - Health Conditions 1. Rarely or not at all 2. Occasionally 3. Frequently 4. Almost constantly 8. Unable to answer Pain Effect on Sleep: 2 Pain Interference with Therapy: 3 Pain Interference w/Day-to-Day: 2 Pt/Family Goals Safely return home Objective Patient Orientation: Person, Place, Time, Situation Attachments: Drains LSO in place when out of bed ROM/Strength ROM Upper Extremities See OT eval ROM Lower Extremities WFL Strength Upper Extremities See OT eval Strength Lower Extremities B LE MMT = 3/5 grossly Integumentary/Posture Integumentary See nurses note Bowel Incontinence: No Bladder Incontinence: No Posture Severe flex posture when walking Sensory Vision: Wears Glasses Hearing: Functional Hand Dominance: Right Sensation Right Upper Extremit: Intact Sensation Left Upper Extremity: Intact Sensation Right Lower Extremit: Intact Sensation Left Lower Extremity: Intact Transfers Roll Left & Right (QC): 2 (Max A ) Sit to Lying (QC): 1 (Mod A x 2 for safety ) Lying to Sitting/Side of Bed(Q: 1 (Mod A x 2 for safety ) Sit to Stand (QC): 1 (Mod A x 2 for safety ) Chair/Vfx-vd-Qexqe Xfer(QC): 1 (Min/Mod A x 2 for safety ) Toilet Transfer (QC): 1 (Mod A x 2 for safety ) Car Transfer (QC): 88 (weakness ) Gait Does the Patient Walk?: Yes Mode of Locomotion: Both Anticipated Mode of Locomotion: Both Walk 10 feet (QC): 1 (Min A x 2 for safety ) Walk 50 ft with 2 Turns(QC): 88 (weakness ) Walk 150 ft (QC): 88 (weakness ) Walking 10ft/uneven surface-QC: 88 (weakness ) Distance: 15ft Gait Assistive Device: FWW Wheelchair Training Does the Pt Use a Wheelchair?: Yes Wheel 50 ft with 2 turns (QC): 1 (weakness ) Wheel 150 ft (QC): 88 (weakness ) Type of Wheelchair: Manual Stairs 1 Step (curb) (QC): 88 (weakness ) 4 Steps (QC): 88 (weakness ) 12 Steps (QC): 88 (weakness ) Walking Assistive Device: Walker Balance Sitting Static: Fair Sitting Dynamic: Poor Standing Static: Poor Standing Dynamic: Poor Picking up an Object (QC): 88 (weakness ) Special Test Comments KU standing balance scale = 1+/5 (goal = 3+/5) Treatment PT eval completed from [id number]. PT/OT co-tx from [id number], due to skill of 2 clinicians required which a rehabilitation center manager could not perform in order to coordinate UE/LEs, decrease fall risk, and due to pt's limitations in strength, activity tolerance, mobility and transfers. PT focused on bed mobility, LE placement, gross overall movement, w/c mobility, transfers, walking, and overall functional mobility, while OT focused on UE placement, ADLs, and cues for sequencing and safety. Pt completed bed mobility and functional transfers with Max A - Dep due to weakness and fatigue and safety. Pt ambulated 15ft with the FWW with Min A x 2, from the bed to the toilet with extensive time to complete and Max v/c and encouragement. Pt required Max A x 2 to transfer from toilet to w/c, in order to prevent a fall, as the pts kept saying 'I cant'. Pt completed stand pivot transfer from w/c to bed with Mod A x 2 and Max v/c. OT assisted pt with dressing EOB. Pt was Max A/ Dep for positioning in bed. Upon completion of PT, p t lying in bed with call light in reach, family/RN present, and all needs met. Assessment/Needs Pt had poor tolerance to PT Rehab Potential: Fair Post Rehab Potential-Barriers: pain, weakness, self-limiting Equipment Needs N/A PT Fdc Goals Corporate Ethics Officer Goals PT Fdc Goals Time Frame: Feb 21, 2023 Roll Left to Right (QC): 3 (Pt will complete all aspects of functional mobility with Min A, in order to safely return home with spouse. ) Sit to Lying (QC): 3 (Pt will complete all aspects of functional mobility with Min A, in order to safely return home with spouse. ) Lying-Sitting on Side/Bed(QC): 3 (Pt will complete all aspects of functional mobility with Min A, in order to safely return home with spouse. ) Sit to Stand (QC): 3 (Pt will complete all aspects of functional mobility with Min A, in order to safely return home with spouse. ) Chair/Gvn-ua-Cssqa Xfer(QC): 3 (Pt will complete all aspects of functional mobility with Min A, in order to safely return home with spouse. ) Toilet/Commode Transfer (QC): 3 (Pt will complete all aspects of functional mobility with Min A, in order to safely return home with spouse. ) Car Transfer (QC): 3 (Pt will complete all aspects of functional mobility with Min A, in order to safely return home with spouse. ) Does the Patient Walk: Yes Walk 10 feet (QC): 3 (Pt will complete all aspects of functional mobility with Min A, in order to safely return home with spouse. ) Walk 10ft-Uneven Surface(QC): 3 (Pt will complete all aspects of functional mobility with Min A, in order to safely return home with spouse. ) Walk 50ft with 2 Turns (QC): 3 (Pt will complete all aspects of functional mobility with Min A, in order to safely return home with spouse. ) Walk 150 ft (QC): 9 (Pt used an [employer] scooter for longer distances at [facility]. ) Does the Pt use WC or Scooter?: Yes Wheel 50 feet with 2 turns (QC: 3 (Pt will complete all aspects of functional mobility with Min A, in order to safely return home with spouse. ) Type: Manual Wheel 150 feet: 3 (Pt will complete all aspects of functional mobility with Min A, in order to safely return home with spouse. ) Type: Manual 1 Step (curb) (QC): 3 (Pt will complete all aspects of functional mobility with Min A, in order to safely return home with spouse. ) 4 Steps (QC): 3 (Pt will complete all aspects of functional mobility with Min A, in order to safely return home with spouse. ) 12 Steps (QC): 9 (Pt did not complete at PLOF ) Picking up an Object (QC): 3 (with instructional support specialist ) KU standing balance goal = 3+/5 PT Plan Problem List Problem List: Activity Tolerance, Functional Strength, Safety, Balance, Gait, Transfer, Bed Mobility, ROM Treatment/Plan Treatment Plan: Continue Plan of Care Treatment Plan: Bed Mobility, Education, Functional Activity Sy, Functional Strength, Group Therapy, Gait, Safety, Therapeutic Exercise, Transfers Treatment Duration: Feb 21, 2023 Frequency: At least 5 of 7 days/Wk (IRF) Estimated Hrs Per Day: 1.5 hours per day Patient and/or Family Agrees t: Yes Safety Risks/Education Patient Education: Gait Training, Transfer Techniques, Reviewed Precautions, Correct Positioning, W/C Management, Reviewed Don/Doff Brace, Safety Issues Teaching Recipient: Patient Teaching Methods: Demonstration, Discussion Response to Teaching: Reinforcement Needed Discharge Recommendations Therapy Discharge Recommendati: Home & Family, Post Acute PT Equpiment Recommendations-D/C: None Discharge Status/Home Program Cont per POC Barriers to Progress Pain, Weakness Target Placement Home with family assistance Time Time In: 1345 Time Out: 1545 DATE: Feb 07, 2023 Total Billed Treatment Time: 105 Total Billed Treatment 105 min total; 2048-0171 = 15 min PT eval; 8290-8665 = 15 min OT eval (not billed); 3927-5572 = 90 min co-tx 1 visit [facility] GT x 2 FA x 4 AD JERONIMO PT Feb 07, 2023 13:56
[2023-02-07] MEDS ORDERED: FAMOTIDINE 20 MG TABLET PO PRN (14:00)
--- NOTE | 2023-02-07 14:14 | Occupational Therapy Eval ---
OT Evaluation-General/PLF Medical Diagnosis Admission Date Feb 07, 2023 at 13:15 Medical Diagnosis: Lumbar stenosis neurogenic claudication s/p L3-L4 TLIF/extension PSIF Onset Date: Feb 05, 2023 Therapy Diagnosis Therapy Diagnosis: generalized weakness and decreased ADL performance Precautions Precautions/Isolations: Fall Prevention, Standard Precautions Comments back precautions/log roll LSO donned when OOB Weight Bear Status None Referral Physician: Hattie Referral Reason: Activity Tolerance, Self Care, Evaluation/Treatment, Strengthening/ROM Medical History Pertinent Medical History: GERD, HTN, OA Reviewed History: Yes Social History Home: Single Level Current Living Status: Significant Other Entry Into Home: Stairs With Railing Steps Into Home: 2 (2-3 steps in to home; 2 in front with B HR and 3 steps in back with R HR and wall on the L side ) Steps Inside Home: 1 (with 1 HR ) accessible bathroom via RW/WC if needed per pt reporting ADL-Prior Level of Function SCALE: Activities may be completed with or without assistive devices. 1-Wpcffebedt-selsukk completes the activity by him/herself with no assistance from a helper. 5-Set-up or Clean-up Assistance-helper sets up or cleans up; patient completes activity. [place] assists only prior to or following the activity. 4-Supervision or Touching Assistance-helper provides verbal cues and/or touching/steadying and/or contact guard assistance as patient completes activity. Assistance may be provided throughout the activity or intermittently. 3-Partial/Moderate Assistance-helper does LESS THAN HALF the effort. Sel[place] lifts, holds or supports trunk or limbs, but provides less than half the effort. 2-Substantial/Maximal Assistance-helper does MORE THAN HALF the effort. Sel[place] lifts or holds trunk or limbs and provides more than half the effort. 2-Ectkolvmr-sixzxt does ALL the effort. Patient does none of the effort to complete the activity. Or, the assistance of 2 or more helpers is required for the patient to complete the activity. If activity was not attempted, code reason: 7-Patient Refused. 9-Not Applicable-not attempted and the patient did not perform the activity before the current illness, exacerbation or injury. 10-Not Attempted due to Environmental Limitations-(lack of equipment, weather restraints, etc.). 88-Not Attempted due to Medical Conditions or Safety Concerns. 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 Co-treat with PT secondary to decreased endurance, activity tolerance, and the need of a second person for safety to increase (I) with functional tasks and to decrease burden of care. PT focusing on functional mobility and gait while OT focusing on ADLs, assisting with standing and strengthening B UE's. Pain Numeric Pain Scale: 6 Location: Lower Location Body Site: Back Comment: RN aware of pt requesting medication for pain Mental Status/Objective Patient Orientation: Normal For Age Current Glasses/Contacts: Yes (for reading) Hearing Aids: No Hand Dominance: Right Upper Extremity ROM AROM WFL to perform basic ADLs Upper Extremity Coordination Appears to be WFL based on observation Upper Extremity Sensation Pt reported no numbness/tingling in BUE's/BLE's Upper Extremity Strength WFL to perform basic ADLs ADL-Treatment Eating (QC): 5 (Set-up A to open packages) Oral Hygiene (QC): 4 (NT secondary to time constraints -- based on observation, pt would be SBA for oral care; OT will continue to assess.) Shower/Bathe Self (QC): 2 (NT secondary to time constraints -- based on clinical observation, pt appears to need sub/max A for bathing; OT will continue to assess; pt will need AE secondary to back precautions.) Upper Body Dressing (QC): 3 (Min A to don shirt seated at EOB; pt required (A) to pull shirt down in thr back.) Lower Body Dressing (QC): 1 (Pt is total A for LBD; pt will requiring AE second humble to back precautions; pt requires 2 people for safety.) On/Off Footwear (QC): 1 (Pt is total A for donning/doffing footwear; pt will need AE secondary to back precautions.) Toileting Hygiene (QC): 1 (Pt it total A for toileting with pt requiring total (A) to clean yung area after voiding and needing total (A) to manage clothing; pt requires 2 people for safety.) Pt requires increased amount of time to complete all ADLs secondary to fatigue/pain. Unsure if pt is self-limiting or demo cognitive deficits? OT will continue to assess. Other Treatments Refer to PT's note for functional mobility performed Pt is dependent with toilet t/f with BSC over toilet with pt requiring 2 people for safety. See ADLs (scores above) performed during session. Education OT Patient Education: Correct positioning, Energy conservation, Exercise program, Home exercise program, Instructions don/doff splint/brace, Instructions to caregiver, Modified ADL techniques, Progress toward Goal/Update tx plan, Purpose of tx/functional activities, Reviewed precautions, Rehab process, Safety issues, Transfer techniques, Use of adapted equipment, W/C management Teaching Recipient: Patient Teaching Methods: Demonstration, Discussion Response to Teaching: Verbalize Understanding, Reinforcement Needed BIMS CAM BIMS Expression of Ideas and Wants: Without Difficulty Understanding Verbal Content: Understands Brief Interview/Mental Status: Yes IRF ELAINA BIMS: IRF ELAINA BIMS Response (Comments) Value Repitition of Three Words Two 2 Recalls Socks No, Could Not Recall 0 Recalls Blue No, Could Not Recall 0 Recalls Bed Yes, No Cue Required 2 Year Correct 3 Month Accurate Within 5 Days 2 Day Correct 1 Total 10 Should Staff Asses. Mental St.: Yes CAM Mental Status Change/Baseline: 1 Inattention: 0 Disorganized thinkin Altered level of consciousness: 2 OT Asl Interpreter Goals Intermediate Goals Eating (QC): 6 Oral Hygiene (QC): 6 Toileting Hygiene (QC): 4 Shower/Bathe Self (QC): 5 Upper Body Dressing (QC): 6 Lower Body Dressing (QC): 4 On/Off Footwear (QC): 6 1=Demonstrate adherence to instructed precautions during ADL tasks. 2=Patient will verbalize/demonstrate understanding of assistive devices/modifications for ADL. 3=Patient will improve strength/tolerance for activity to enable patient to perform ADL's. OT Education/Plan Problem List/Assessment Assessment: Decreased Activ Tolerance, Decreased Safety Aware, Decreased UE Strength, Dependent Transfers, Impaired Bed Mobility, Impaired Cognition, Impaired Funct Balance, Impaired I ADL's, Impaired Self-Care Skills Discharge Recommendations Plan/Recommendations: Continue POC Comment DME deferred pending pt's progression Barriers to Progress Endurance/deconditioned, decreased functional mobility, decreased ADL performance, decreased activity tolerance Patient/Family Goals Return to PLOF Treatment Plan/Plan of Care Treatment,Training & Education: Yes Patient would benefit from OT for education, treatment and training to promote independence in ADL's, mobility, safety and/or upper extremity function for ADL's. Plan of Care: ADL Retraining, Caregiver Training, Cognitive Retraining, Functional Mobility, Group Exercise/Act as Ind, Orthotic Fitting/Training, UE Funct Exercise/Act, W/C Management Training Treatment Duration: Feb 28, 2023 Frequency: At least 5 of 7 days/Wk (IRF) Estimated Hrs Per Day: 1.5 hours per day Agreement: Yes Rehab Potential: Good Ending session, pt semi-reclined in bed with needs/call light in reach. Time Start Time: 14:15 Stop Time: 15:45 DATE: Feb 07, 2023 Total Time Billed (hr/min): 105 Billed Treatment Time OT evaluation -- 15 minutes Co-treat with PT -- 90 minutes EVH 1 FA 3 ADL 3 ZEE LOPEZ OT Feb 07, 2023 14:14
[2023-02-07] MEDS ORDERED: CYCLOBENZAPRINE 10 MG TABLET PO PRN (14:30)
[2023-02-07] MEDS: ACETAMINOPHEN 500 MG TABLET PO PRN (17:22)
[2023-02-07 20:55] VITALS: BP 139/64
[2023-02-07] MEDS: SENNA W/DOCUSATE TABLET PO SCH (21:00)
[2023-02-07] MEDS: OXYBUTYNIN 5 MG TABLET PO SCH (22:18)
[2023-02-07] MEDS: DOCUSATE SODIUM 100 MG CAPSULE PO SCH (22:18)
[2023-02-08] MEDS: ACETAMINOPHEN 500 MG TABLET PO PRN ×3 (04:54→21:09)
--- NOTE | 2023-02-08 06:53 | PM&R Progress Note ---
Subjective HPI/CC On Admission Date Seen by Provider: Feb 08, 2023 Time Seen by Provider: 12:00 Subjective/Events-last exam 02/08/2023: Doing a bit better Family at bedside Slow recovery Tachycardia noted so obtained EKG ST but LBBB and spouse reports no h/o cardiac issues so will check troponin IVF will be given Labs reviewed and all stable Increased LFT's will be pursued Review of Systems General: Fatigue, Malaise Objective Exam Vital Signs Vital Signs Date Time Temp Pulse Resp B/P (MAP) Pulse Ox O2 Delivery O2 Flow Rate FiO2 02/08/23 09:00 92 Room Air 02/08/23 08:00 37.1 98 18 130/58 (82) Capillary Refill : General Appearance: WD/WN, Chronically ill, Mild Distress, Other (lethargic) HEENT: PERRL/EOMI, Normal ENT Inspection, Pharynx Normal Neck: Full Range of Motion, Normal Inspection, Non Tender, Supple, Carotid Bruit Respiratory: Chest Non Tender, Lungs Clear, Normal Breath Sounds, No Accessory Muscle Use, No Respiratory Distress Cardiovascular: Regular Rate, Rhythm, No Edema, No Gallop, No JVD, No Murmur, Normal Peripheral Pulses Gastrointestinal: Normal Bowel Sounds, No Organomegaly, No Pulsatile Mass, Non Tender, Soft Back: CVA Tenderness (L), CVA Tenderness (R), Decreased Range of Motion, Muscle Spasm, Vertebral Tenderness, Other (Wearing brace) Extremity: Normal Capillary Refill, Normal Inspection, Normal Range of Motion, Non Tender, No Calf Tenderness, No Pedal Edema Neurologic/Psychiatric: Alert, Oriented x3, storm door maker II-XII Norm as Tested, Abnormal Gait, Depressed Affect, Motor Weakness ( severe in lower extremities) Skin: Normal Color, Warm/Dry Lymphatic: No Adenopathy Results/Procedures Lab Laboratory Tests 02/08/23 06:45 Patient resulted labs reviewed. FIM Transfers Therapy Code Descriptions/Definitions Functional [place] Measure: 0=Not Assessed/NA 4=Minimal Assistance 1=Total Assistance 5=Supervision or Setup 2=Maximal Assistance 6=Modified [place] 3=Moderate Assistance 7=Complete IndependenceSCALE: Activities may be completed with or without assistive devices. 8-Bycjkougfi-octiazn completes the activity by him/herself with no assistance from a helper. 5-Set-up or Clean-up Assistance-helper sets up or cleans up; patient completes activity. [place] assists only prior to or following the activity. 4-Supervision or Touching Assistance-helper provides verbal cues and/or touching/steadying and/or contact guard assistance as patient completes activity. Assistance may be provided throughout the activity or intermittently. 3-Partial/Moderate Assistance-helper does LESS THAN HALF the effort. Chase lifts, holds or supports trunk or limbs, but provides less than half the effort. 2-Substantial/Maximal Assistance-helper does MORE THAN HALF the effort. [place] lifts or holds trunk or limbs and provides more than half the effort. 2-Xnyqfcmsq-aavubg does ALL the effort. Patient does none of the effort to complete the activity. Or, the assistance of 2 or more helpers is required for the patient to complete the activity. If activity was not attempted, code reason: 7-Patient Refused. 9-Not Applicable-not attempted and the patient did not perform the activity before the current illness, exacerbation or injury. 10-Not Attempted due to Environmental Limitations-(lack of equipment, weather restraints, etc.). 88-Not Attempted due to Medical Conditions or Safety Concerns. Roll Left to Right (QC): 2 (Max A ) Sit to Lying (QC): 1 (Mod A x 2 for safety ) Sit to Stand (QC): 1 (Mod A x 2 for safety ) Chair/Cpw-xn-Azjtp Xfer(QC): 1 (Min/Mod A x 2 for safety ) Car Transfer (QC): 88 (weakness ) Gait Training Does the Patient Walk?: Yes Walk 10 feet (QC): 1 (Min A x 2 for safety ) Walk 50 ft with 2 Turns(QC): 88 (weakness ) Walk 150 ft (QC): 88 (weakness ) Walking 10ft/uneven surface-QC: 88 (weakness ) Gait Assistive Device: FWW Wheelchair Training Does the Pt Use a Wheelchair?: Yes Wheel 50 ft with 2 turns (QC): 1 (weakness ) Wheel 150 ft (QC): 88 (weakness ) Type of Wheelchair: Manual Stair Training 1 Step (curb) (QC): 88 (weakness ) 4 Steps (QC): 88 (weakness ) 12 Steps (QC): 88 (weakness ) Balance Picking up an Object (QC): 88 (weakness ) ADL-Treatment Eating (QC): 5 (Set-up A to open packages) Oral Hygiene (QC): 4 (NT secondary to time constraints -- based on observation, pt would be SBA for oral care; OT will continue to assess.) Shower/Bathe Self (QC): 2 (NT secondary to time constraints -- based on clinical observation, pt appears to need sub/max A for bathing; OT will continue to assess; pt will need AE secondary to back precautions.) Upper Body Dressing (QC): 3 (Min A to don shirt seated at EOB; pt required (A) to pull shirt down in thr back.) Lower Body Dressing (QC): 1 (Pt is total A for LBD; pt will requiring AE secondary to back precautions; pt requires 2 people for safety.) On/Off Footwear (QC): 1 (Pt is total A for donning/doffing footwear; pt will need AE secondary to back precautions.) Toileting Hygiene (QC): 1 (Pt it total A for toileting with pt requiring total (A) to clean yung area after voiding and needing total (A) to manage clothing; pt requires 2 people for safety.) Assessment/Plan Assessment and Plan Assess & Plan/Chief Complaint Assessment: Lumbar stenosis with neurogenic claudication status post L3-4 TLIFextension PSIF on 02/05/[address] Richard Hypertension Hyperlipidemia Advanced age Slow recovery Elevated LFT's LBBB on EKG Sinus tachycardia 120 on 02/08/23 initiated IVF Plan: Supportive care Monitor closely Pain controlled Slow therapy 02/08/2023: Check troponin LBBB IVF (1) Lumbar stenosis with neurogenic claudication JANNIE TORRES DO Feb 08, 2023 06:53
[2023-02-08 07:01] LABS: BASOPHILS # (AUTO) 0.1 10^3/uL (0.0-0.1); BASOPHILS % (AUTO) 1 % (0-10); EOSINOPHILS # (AUTO) 0.1 10^3/uL (0.0-0.3); EOSINOPHILS % (AUTO) 1 % (0-10); HEMATOCRIT 33 % (35-52); HEMOGLOBIN 10.8 g/dL (11.5-16.0); LYMPHOCYTES # (AUTO) 1.3 10^3/uL (1.0-4.0); LYMPHOCYTES % (AUTO) 12 % (12-44); MEAN CORPUSCULAR HEMOGLOBIN 32 pg (25-34); MEAN CORPUSCULAR HGB CONC 33 g/dL (32-36); MEAN CORPUSCULAR VOLUME 96 fL (80-99); MEAN PLATELET VOLUME 10.2 fL (9.0-12.2); MONOCYTES # (AUTO) 1.2 10^3/uL (0.0-1.0); MONOCYTES % (AUTO) 11 % (0-12); NEUTROPHILS # (AUTO) 8.4 10^3/uL (1.8-7.8); NEUTROPHILS % (AUTO) 76 % (42-75); PLATELET COUNT 230 10^3/uL (130-400); WHITE BLOOD COUNT 11.1 10^3/uL (4.3-11.0)
[2023-02-08 07:13] LABS: ALBUMIN 3.5 GM/DL (3.2-4.5); POTASSIUM 3.9 MMOL/L (3.6-5.0)
[2023-02-08 07:14] LABS: CALCIUM 10.3 MG/DL (8.5-10.1)
[2023-02-08] MEDS: THERAPEUTIC MULTIVITAMIN W/MINERALS TABLET PO SCH (07:15)
[2023-02-08 07:16] LABS: TOTAL PROTEIN 6.9 GM/DL (6.4-8.2)
[2023-02-08 07:18] LABS: BILIRUBIN,TOTAL 1.1 MG/DL (0.1-1.0)
[2023-02-08 07:19] LABS: CREATININE SERUM 1.11 MG/DL (0.60-1.30)
[2023-02-08 08:00] VITALS: BP 130/58
[2023-02-08] MEDS ORDERED: NON-FORMULARY MEDICATION 1 EA EA (Cetirizine HCl 5 MG) PO SCH (09:00)
[2023-02-08] MEDS: amLODIPine 5 MG TABLET PO SCH (09:04)
[2023-02-08] MEDS: OXYBUTYNIN 5 MG TABLET PO SCH ×2 (09:04→21:09)
[2023-02-08] MEDS: ROSUVASTATIN 5 MG TABLET PO SCH (09:04)
[2023-02-08] MEDS: VITAMIN D3 25 MCG (1,000 UNITS) TABLET PO SCH (09:05)
[2023-02-08] MEDS: SENNA W/DOCUSATE TABLET PO SCH ×2 (09:05→21:09)
[2023-02-08] MEDS: LORATADINE 10 MG TABLET PO SCH (09:05)
[2023-02-08] MEDS: DOCUSATE SODIUM 100 MG CAPSULE PO SCH ×2 (09:05→21:09)
[2023-02-08] MEDS: oxyCODONE IMMEDIATE RELEASE 5 MG TABLET PO PRN (09:09)
[2023-02-08] MEDS ORDERED: NS (IVPB) 250 ML 250 ML IV ONE (15:15)
[2023-02-08] MEDS: NS IV 1000 ML 1,000 ML IV SCH (15:35)
[2023-02-08 16:53] LABS: TRIGLYCERIDES 93 MG/DL (<150); VLDL CHOLESTEROL 19 MG/DL (5-40)
[2023-02-08 16:58] LABS: CHOLESTEROL 116 MG/DL (< 200)
[2023-02-08 16:59] LABS: HDL CHOLESTEROL 50 MG/DL (40-60)
--- NOTE | 2023-02-08 17:34 | Consultation-Cardiology ---
HPI-Cardiology Cardiology Consultation: Date of Consultation 02/08/23 Date of Admission Attending Physician Warren Gonzalez MD Admitting Physician Admitting Physician: Roseanne Kuhn DO Attending Physician: Roseanne Kuhn DO Consulting Physician Jigar BRIONES MD HPI: Time Seen by a Provider: 17:29 Chief Complaint: Tachycardia This is a 77-year-old lady who recently underwent extensive spine surgery at [facility]. She was transferred to [facility] for acute rehabilitation. She was noted to have tachycardia. She denies any chest pain or shortness of breath. She does complain of back pain. She does not have any significant cardiac history. Review of Systems-Cardiology Review of Systems Constitutional: no symptoms reported Eyes: no symptoms reported Ears/Nose/Throat: no symptoms reported Respiratory: No shortness of breath Cardiovascular: No chest pain Musculoskeletal: back pain All Other Systems Reviewed Negative Unless Noted: Yes WUO-Pojpcx-Mfsgxp Hx Patient Social History Marrital Status: Employed/Student: retired Smoking Status: Never a Smoker Alcohol Use?: Yes Pt feels they are or have been: No Tobacco type used: Cigarettes Past Medical History PMH As described under Assessment. Allergies and Home Medications Allergies Coded Allergies: No Allergy Information Available (Unverified , 02/07/23) Patient Home Medication List Home Medication List Reviewed: Yes Acetaminophen (Tylenol Extra Strength) 500 Mg Tablet, 1,000 MG PO Q6H PRN for PAIN-MILD (1-4), (Reported) Entered as Reported by: NOE RICARDO on 02/07/231301 Last Action: Continued Amlodipine Besylate (Amlodipine Besylate) 5 Mg Tablet, 5 MG PO DAILY, (Reported) Entered as Reported by: NOE RICARDO on 02/07/231301 Last Action: Continued Cetirizine HCl (Cetirizine HCl) 5 Mg Tablet, 5 MG PO DAILY, (Reported) Entered as Reported by: NOE RICARDO on 02/07/231301 Last Action: Converted Cholecalciferol (Vitamin D3) (Vitamin D3) 25 Mcg (1000 Unit) Tablet, 25 MCG PO DAILY, (Reported) Entered as Reported by: NOE RICARDO on 02/07/231301 Last Action: Continued Cyclobenzaprine HCl (Cyclobenzaprine HCl) 10 Mg Tablet, 10 MG PO Q8H PRN for SPASMS, (Reported) Entered as Reported by: NOE RICARDO on 02/07/231301 Last Action: Continued Famotidine (Acid Price Economist (FAMOTIDINE)) 20 Mg Tablet, 20 MG PO DAILY PRN for HEARTBURN, (Reported) Entered as Reported by: NOE RICARDO on 02/07/231301 Last Action: Continued Hydrochlorothiazide (Hydrochlorothiazide) 25 Mg Tablet, 25 MG PO DAILY, (Reported) Entered as Reported by: NOE RICARDO on 02/07/231301 Last Action: Held Oxybutynin Chloride (Oxybutynin Chloride) 5 Mg Tablet, 5 MG PO BID, (Reported) Entered as Reported by: NOE RICARDO on 02/07/231301 Last Action: Continued Oxycodone HCl (Oxycodone HCl) 5 Mg Tablet, 5 MG PO Q4H PRN for PAIN-SEVERE (8- 10), (Reported) Entered as Reported by: NOE RICARDO on 02/07/231301 Last Action: Continued Rosuvastatin Calcium (Rosuvastatin Calcium) 5 Mg Tablet, 5 MG PO DAILY, (Reported) Entered as Reported by: NOE RICARDO on 02/07/231301 Last Action: Continued Valsartan/Hydrochlorothiazide (Valsartan-Hctz 160-12.5 mg Tab) 160 Mg-12.5 Mg Tablet, 1 EACH PO DAILY, (Reported) Entered as Reported by: NOE RICARDO on 02/07/231301 Last Action: Held Vit B Cmplx 3/FA/Vit C/Biotin ([place]-Henri Rx Tablet) 1 Mg-60 Mg-300 Mcg Tablet, 1 EACH PO DAILY, (Reported) Entered as Reported by: NOE RICARDO on 02/07/231301 Last Action: Converted Exam Vital Signs Vital Signs Date Time Temp Pulse Resp B/P (MAP) Pulse Ox O2 Delivery O2 Flow Rate FiO2 02/08/23 16:02 111 02/08/23 09:00 92 Room Air 02/08/23 08:00 37.1 18 130/58 (82) Physical Exam Constitutional: No respiratory distress. Chest: Bilateral good air entry. CVS: Regular rate and rhythm. No murmurs. Neuro: Nonfocal. Labs Laboratory Tests Test 02/08/23 06:45 9/9/23 15:30 Range/Units White Blood Count 11.1 H 4.3-11.0 10^3/uL Red Blood Count 3.43 L 3.80-5.11 10^6/uL Hemoglobin 10.8 L 11.5-16.0 g/dL Hematocrit 33 L 35-52 % Mean Corpuscular Volume 96 80-99 fL Mean Corpuscular Hemoglobin 32 25-34 pg Mean Corpuscular Hemoglobin Concent 33 32-36 g/dL Red Cell Distribution Width 13.2 10.0-14.5 % Platelet Count 230 130-400 10^3/uL Mean Platelet Volume 10.2 9.0-12.2 fL Immature Granulocyte % (Auto) 0 % Neutrophils (%) (Auto) 76 H 42-75 % Lymphocytes (%) (Auto) 12 12-44 % Monocytes (%) (Auto) 11 0-12 % Eosinophils (%) (Auto) 1 0-10 % Basophils (%) (Auto) 1 0-10 % Neutrophils # (Auto) 8.4 H 1.8-7.8 10^3/uL Lymphocytes # (Auto) 1.3 1.0-4.0 10^3/uL Monocytes # (Auto) 1.2 H 0.0-1.0 10^3/uL Eosinophils # (Auto) 0.1 0.0-0.3 10^3/uL Basophils # (Auto) 0.1 0.0-0.1 10^3/uL Immature Granulocyte # (Auto) 0.0 0.0-0.1 10^3/uL Sodium Level 135 135-145 MMOL/L Potassium Level 3.9 3.6-5.0 MMOL/L Chloride Level 102 98-107 MMOL/L Carbon Dioxide Level 22 21-32 MMOL/L Anion Gap 11 5-14 MMOL/L Blood Urea Nitrogen 24 H 7-18 MG/DL Creatinine 1.11 0.60-1.30 MG/DL Estimat Glomerular Filtration Rate 52 BUN/Creatinine Ratio 22 Glucose Level 140 H 70-105 MG/DL Calcium Level 10.3 H 8.5-10.1 MG/DL Corrected Calcium 10.7 H 8.5-10.1 MG/DL Total Bilirubin 1.1 H 0.1-1.0 MG/DL Aspartate Amino Transf (AST/SGOT) 70 H 5-34 U/L Alanine Aminotransferase (ALT/SGPT) 110 H 0-55 U/L Alkaline Phosphatase 248 H 40-136 U/L Total Protein 6.9 6.4-8.2 GM/DL Albumin 3.5 3.2-4.5 GM/DL Ammonia 14 11-32 UMOL/L Troponin I 0.087 H <0.028 NG/ML Triglycerides Level 93 <150 MG/DL Cholesterol Level 116 < 200 MG/DL LDL Cholesterol Direct 49 1-129 MG/DL VLDL Cholesterol 19 5-40 MG/DL HDL Cholesterol 50 40-60 MG/DL Thyroid Stimulating Hormone (TSH) 0.05 L 0.35-4.94 UIU/ML ECG Impression ECG Initial ECG Rhythm: S.Tach Comment Sinus tachycardia with left bundle branch block. A/P-Cardiology Assessment/Admission Diagnosis Extensive spine surgery, back pain. Left bundle branch block Borderline troponin, Sinus tachycardia Plan Sinus tachycardia, borderline troponin left bundle branch block. Will repeat another troponin in 3 hours. Likely type II ME due to extensive spine surgery. Echocardiogram will be requested as well. Due to extensive spine surgery, anticoagulation may be a contraindication however I will defer it to Dr. Kuhn. Oxygen saturation 92% on room air. ?PE. With sinus tachycardia. Will defer to Dr. Kuhn. Jigar BRIONES MD Feb 08, 2023 17:34
[2023-02-08] MEDS ORDERED: IOHEXOL 350 MG/ML 100 ML (OMNIPAQUE 350) VIAL IV ONE (17:45)
[2023-02-08] MEDS ORDERED: NS 100 ML (IVPB) BAG IV ONE (17:45)
[2023-02-08] MEDS ORDERED: HOLD METFORMIN - RECEIVED CONTRAST 20 ML VIAL IV SCH (17:45)
--- NOTE | 2023-02-08 18:36 | Diagnostic Imaging Report ---
INDICATION: Sinus tachycardia with positive troponin status post orthopedic surgery. Back pain. Evaluate for pulmonary embolism. COMPARISON: None available. FINDINGS: There is no CT angiographic findings of a filling defect within the pulmonary arteries to suggest embolism or evidence of right ventricular strain. There is advanced aortic atherosclerosis without definable aneurysm or dissection. There are also calcifications at the mitral valve. There is no filling defect in the left atrium. Lungs demonstrate dependent discoid atelectasis and otherwise appear clear without evidence of pneumonia or edema. There is no effusion or significant pleural collection. There is no finding of thoracic adenopathy. The upper abdomen demonstrates prominence of the intrahepatic and extrahepatic bile ducts with apparent prior postsurgical changes. Alignment of the thoracic spine is normal. Ingot Buggy Operator tomogram demonstrates lumbar spinal surgery. There is partial visualization of an apparent postsurgical drain within the dorsal soft tissues. IMPRESSION: 1. No CT angiographic evidence of pulmonary embolism or right ventricular strain. 2. Advanced aortic atherosclerosis and mitral valve calcifications without findings of aortic aneurysm or dissection. There is also bridgeport coronary artery disease. 3. Other than atelectasis, the lungs appear clear. 4. No definable adenopathy. 5. Intrahepatic and extrahepatic biliary dilatation presumably secondary to prior cholecystectomy. Consider correlation with LFTs as no priors are available. Dictated by: Dictated on workstation # [id number]
[2023-02-08 20:24] VITALS: BP 122/66
[2023-02-09] MEDS: NS IV 1000 ML 1,000 ML IV SCH (03:30)
--- NOTE | 2023-02-09 06:07 | PM&R Progress Note ---
Subjective HPI/CC On Admission Date Seen by Provider: Feb 09, 2023 Time Seen by Provider: 12:00 Subjective/Events-last exam 02/09/2023: No major events overnight IV fluid did improve her status Up in chair with back brace Conferred with cardiology and the plan will be for cardiology to evaluate need for intervention and if that is the case I will move her upstairs she will have cardiac catheterization and then ultimately return back to rehab All family updated and in agreement with the plan 02/08/2023: Doing a bit better Family at bedside Slow recovery Tachycardia noted so obtained EKG ST but LBBB and spouse reports no h/o cardiac issues so will check troponin IVF will be given Labs reviewed and all stable Increased LFT's will be pursued Review of Systems General: Fatigue, Malaise Objective Exam Vital Signs Vital Signs Date Time Temp Pulse Resp B/P (MAP) Pulse Ox O2 Delivery O2 Flow Rate FiO2 02/09/23 15:30 38.2 02/09/23 12:35 100 02/09/23 07:52 18 141/63 (89) 92 Room Air Capillary Refill : General Appearance: WD/WN, Chronically ill, Mild Distress, Other (lethargic) HEENT: PERRL/EOMI, Normal ENT Inspection, Pharynx Normal Neck: Full Range of Motion, Normal Inspection, Non Tender, Supple, Carotid Bruit Respiratory: Chest Non Tender, Lungs Clear, Normal Breath Sounds, No Accessory Muscle Use, No Respiratory Distress Cardiovascular: Regular Rate, Rhythm, No Edema, No Gallop, No JVD, No Murmur, Normal Peripheral Pulses Gastrointestinal: Normal Bowel Sounds, No Organomegaly, No Pulsatile Mass, Non Tender, Soft Back: CVA Tenderness (L), CVA Tenderness (R), Decreased Range of Motion, Muscle Spasm, Vertebral Tenderness, Other (Wearing brace) Extremity: Normal Capillary Refill, Normal Inspection, Normal Range of Motion, Non Tender, No Calf Tenderness, No Pedal Edema Neurologic/Psychiatric: Alert, Oriented x3, accounts clerk II-XII Norm as Tested, Abnormal Gait, Depressed Affect, Motor Weakness ( severe in lower extremities) Skin: Normal Color, Warm/Dry Lymphatic: No Adenopathy Results/Procedures Lab Laboratory Tests 02/09/23 07:15 Patient resulted labs reviewed. FIM Transfers Therapy Code Descriptions/Definitions Functional [place] Measure: 0=Not Assessed/NA 4=Minimal Assistance 1=Total Assistance 5=Supervision or Setup 2=Maximal Assistance 6=Modified [place] 3=Moderate Assistance 7=Complete IndependenceSCALE: Activities may be completed with or without assistive devices. 4-Cbugxflnmm-jlgbalj completes the activity by him/herself with no assistance from a helper. 5-Set-up or Clean-up Assistance-helper sets up or cleans up; patient completes activity. Shannon assists only prior to or following the activity. 4-Supervision or Touching Assistance-helper provides verbal cues and/or touching/steadying and/or contact guard assistance as patient completes activity. Assistance may be provided throughout the activity or intermittently. 3-Partial/Moderate Assistance-helper does LESS THAN HALF the effort. Shannon lifts, holds or supports trunk or limbs, but provides less than half the effort. 2-Substantial/Maximal Assistance-helper does MORE THAN HALF the effort. Shannon lifts or holds trunk or limbs and provides more than half the effort. 4-Osmjwfvoe-cosdlt does ALL the effort. Patient does none of the effort to complete the activity. Or, the assistance of 2 or more helpers is required for the patient to complete the activity. If activity was not attempted, code reason: 7-Patient Refused. 9-Not Applicable-not attempted and the patient did not perform the activity before the current illness, exacerbation or injury. 10-Not Attempted due to Environmental Limitations-(lack of equipment, weather restraints, etc.). 88-Not Attempted due to Medical Conditions or Safety Concerns. Roll Left to Right (QC): 2 (Max A ) Sit to Lying (QC): 1 (Mod A x 2 for safety ) Sit to Stand (QC): 1 (Mod A x 2 for safety ) Chair/Zfa-ky-Ftnkb Xfer(QC): 1 (Min/Mod A x 2 for safety ) Car Transfer (QC): 88 (weakness ) Gait Training Does the Patient Walk?: Yes Walk 10 feet (QC): 1 (Min A x 2 for safety ) Walk 50 ft with 2 Turns(QC): 88 (weakness ) Walk 150 ft (QC): 88 (weakness ) Walking 10ft/uneven surface-QC: 88 (weakness ) Gait Assistive Device: FWW Wheelchair Training Does the Pt Use a Wheelchair?: Yes Wheel 50 ft with 2 turns (QC): 1 (weakness ) Wheel 150 ft (QC): 88 (weakness ) Type of Wheelchair: Manual Stair Training 1 Step (curb) (QC): 88 (weakness ) 4 Steps (QC): 88 (weakness ) 12 Steps (QC): 88 (weakness ) Balance Picking up an Object (QC): 88 (weakness ) ADL-Treatment Eating (QC): 5 (Set-up A to open packages) Oral Hygiene (QC): 4 (NT secondary to time constraints -- based on observation, pt would be SBA for oral care; OT will continue to assess.) Shower/Bathe Self (QC): 2 (NT secondary to time constraints -- based on clinical observation, pt appears to need sub/max A for bathing; OT will continue to assess; pt will need AE secondary to back precautions.) Upper Body Dressing (QC): 3 (Min A to don shirt seated at EOB; pt required (A) to pull shirt down in thr back.) Lower Body Dressing (QC): 1 (Pt is total A for LBD; pt will requiring AE secondary to back precautions; pt requires 2 people for safety.) On/Off Footwear (QC): 1 (Pt is total A for donning/doffing footwear; pt will need AE secondary to back precautions.) Toileting Hygiene (QC): 1 (Pt it total A for toileting with pt requiring total (A) to clean yung area after voiding and needing total (A) to manage clothing; pt requires 2 people for safety.) Assessment/Plan Assessment and Plan Assess & Plan/Chief Complaint Assessment: Lumbar stenosis with neurogenic claudication status post L3-4 TLIFextension PSIF on 02/05/[address] Richard Hypertension Hyperlipidemia Advanced age Slow recovery Elevated LFT's LBBB on EKG Sinus tachycardia 120 on 02/08/23 initiated IVF NSTEMIspine surgery has approved addition of aspirin and anticoagulation tomorrow since decrease chance of spinal hematoma and bleeding causing paralysis and will need cardiac catheterization to fully evaluate Plan: Supportive care Monitor closely Pain controlled Slow therapy 02/08/2023: Check troponin LBBB IVF 02/09/2023: Aspirin/anticoagulation can be initiated tomorrow per spine surgery since decrease chance of spinal hematoma and paralysis Hep-Lock IV fluid Cardiology eval tomorrow (1) Lumbar stenosis with neurogenic claudication JANNIE TORRES DO Feb 09, 2023 06:07
[2023-02-09] MEDS: THERAPEUTIC MULTIVITAMIN W/MINERALS TABLET PO SCH (06:53)
[2023-02-09 07:22] LABS: BASOPHILS # (AUTO) 0.1 10^3/uL (0.0-0.1); BASOPHILS % (AUTO) 1 % (0-10); EOSINOPHILS # (AUTO) 0.1 10^3/uL (0.0-0.3); EOSINOPHILS % (AUTO) 0 % (0-10); HEMATOCRIT 32 % (35-52); HEMOGLOBIN 10.4 g/dL (11.5-16.0); LYMPHOCYTES # (AUTO) 1.1 10^3/uL (1.0-4.0); LYMPHOCYTES % (AUTO) 10 % (12-44); MEAN CORPUSCULAR HEMOGLOBIN 31 pg (25-34); MEAN CORPUSCULAR HGB CONC 33 g/dL (32-36); MEAN CORPUSCULAR VOLUME 96 fL (80-99); MEAN PLATELET VOLUME 10.1 fL (9.0-12.2); MONOCYTES # (AUTO) 1.4 10^3/uL (0.0-1.0); MONOCYTES % (AUTO) 12 % (0-12); NEUTROPHILS # (AUTO) 8.8 10^3/uL (1.8-7.8); NEUTROPHILS % (AUTO) 77 % (42-75); PLATELET COUNT 239 10^3/uL (130-400); WHITE BLOOD COUNT 11.5 10^3/uL (4.3-11.0)
[2023-02-09 07:41] LABS: ALBUMIN 3.4 GM/DL (3.2-4.5); BILIRUBIN,TOTAL 1.3 MG/DL (0.1-1.0); CALCIUM 9.9 MG/DL (8.5-10.1); CREATININE SERUM 1.1 MG/DL (0.60-1.30); POTASSIUM 3.8 MMOL/L (3.6-5.0); TOTAL PROTEIN 6.7 GM/DL (6.4-8.2)
[2023-02-09 07:52] VITALS: BP 141/63
[2023-02-09] MEDS: VITAMIN D3 25 MCG (1,000 UNITS) TABLET PO SCH (07:58)
[2023-02-09] MEDS: ROSUVASTATIN 5 MG TABLET PO SCH (07:58)
[2023-02-09] MEDS: DOCUSATE SODIUM 100 MG CAPSULE PO SCH ×2 (07:58→21:11)
[2023-02-09] MEDS: amLODIPine 5 MG TABLET PO SCH (07:58)
[2023-02-09] MEDS: LORATADINE 10 MG TABLET PO SCH (07:59)
[2023-02-09] MEDS: OXYBUTYNIN 5 MG TABLET PO SCH ×2 (07:59→21:11)
[2023-02-09] MEDS: oxyCODONE IMMEDIATE RELEASE 5 MG TABLET PO PRN (07:59)
[2023-02-09] MEDS: SENNA W/DOCUSATE TABLET PO SCH ×2 (08:01→21:11)
[2023-02-09 08:50] LABS: FREE T4 (FREE THYROXINE) 1.63 NG/DL (0.70-1.48)
[2023-02-09] MEDS ORDERED: BISACODYL 10 MG SUPPOSITORY PR PRN (12:30)
[2023-02-09] MEDS ORDERED: BISACODYL 10 MG SUPPOSITORY PR NR (12:45)
--- NOTE | 2023-02-09 13:45 | Cardiology Progress Note ---
Cardiology SOAP Progress Note Subjective: c/o back pain. No chest pain Objective: I&O/Vital Signs 02/09/23 02/09/23 02/09/23 02/09/23 07:00 07:52 09:00 12:35 Temp 37.1 Pulse 96 93 100 Resp 18 B/P (MAP) 141/63 (89) Pulse Ox 92 92 O2 Delivery Room Air Room Air 02/09/23 15:30 Temp 38.2 02/09/23 00:00 Intake Total 650 ml Output Total 20 ml Balance 630 ml Constitutional: AAO x 3 Respiratory: lungs clear to auscultation Cardiovascular: regular rate-rhythm, tachycardia Extremities: No pedal edema Neurologic/Psychiatric: no motor/sensory deficits, alert, normal mood/affect, oriented x 3 Skin: normal color Results/Procedures: Labs Laboratory Tests 02/08/23 19:40: Troponin I 0.123H 02/09/23 07:15: Troponin I 1.834*H, White Blood Count 11.5H, Red Blood Count 3.32L, Hemoglobin 10.4L, Hematocrit 32L, Mean Corpuscular Volume 96, Mean Corpuscular Hemoglobin 31, Mean Corpuscular Hemoglobin Concent 33, Red Cell Distribution Width 13.0, Platelet Count 239, Mean Platelet Volume 10.1, Immature Granulocyte % (Auto) 0, Neutrophils (%) (Auto) 77H, Lymphocytes (%) (Auto) 10L, Monocytes (%) (Auto) 12, Eosinophils (%) (Auto) 0, Basophils (%) (Auto) 1, Neutrophils # (Auto) 8.8H, Lymphocytes # (Auto) 1.1, Monocytes # (Auto) 1.4H, Eosinophils # (Auto) 0.1, Basophils # (Auto) 0.1, Immature Granulocyte # (Auto) 0.0, Sodium Level 140, Potassium Level 3.8, Chloride Level 107, Carbon Dioxide Level 23, Anion Gap 10, Blood Urea Nitrogen 25H, Creatinine 1.10, Estimat Glomerular Filtration Rate 52, BUN/Creatinine Ratio 23, Glucose Level 138H, Calcium Level 9.9, Corrected Calcium 10.4H, Total Bilirubin 1.3H, Aspartate Amino Transf (AST/SGOT) 35H, Alanine Aminotransferase (ALT/SGPT) 69H, Alkaline Phosphatase 221H, B-Type Natriuretic Peptide 450.6H, Total Protein 6.7, Albumin 3.4, Free Thyroxine 1.63H A/P: Assessment/Dx: Extensive spine surgery, back pain. Left bundle branch block NSTEMI - no chest pain Sinus tachycardia Plan: Sinus tachycardia, borderline troponin left bundle branch block. negative CTA for PE. Serial upward trend of troponin. very likely NSTEMI. No chest pain. Dr Kuhn d/w Dr Richard, the Spine surgeon. We can give antiplatelet or antithrombin agent by 02/10/2023. Patient will require antiplatelet therapy with heparin and like coronary evaluation with angiography. Discussed at the length with the patient and family. explained that we cannot give optimal medical therapy today. Echocardiogram- Normal LVEF, no significant wall motion abnormalities. Jigar BRIONES MD Feb 09, 2023 13:45
[2023-02-09] MEDS: ACETAMINOPHEN 500 MG TABLET PO PRN (15:31)
[2023-02-09 20:30] VITALS: BP 144/68
[2023-02-09 21:03] VITALS: BP 144/68
[2023-02-10] MEDS: oxyCODONE IMMEDIATE RELEASE 5 MG TABLET PO PRN (00:33)
--- NOTE | 2023-02-10 05:05 | PM&R Progress Note ---
Subjective HPI/CC On Admission Date Seen by Provider: Feb 10, 2023 Time Seen by Provider: 09:00 Subjective/Events-last exam 02/10/2023: 02/09/2023: No major events overnight IV fluid did improve her status Up in chair with back brace Conferred with cardiology and the plan will be for cardiology to evaluate need for intervention and if that is the case I will move her upstairs she will have cardiac catheterization and then ultimately return back to rehab All family updated and in agreement with the plan 02/08/2023: Doing a bit better Family at bedside Slow recovery Tachycardia noted so obtained EKG ST but LBBB and spouse reports no h/o cardiac issues so will check troponin IVF will be given Labs reviewed and all stable Increased LFT's will be pursued Review of Systems General: Fatigue, Malaise Objective Exam Vital Signs Vital Signs Date Time Temp Pulse Resp B/P (MAP) Pulse Ox O2 Delivery O2 Flow Rate FiO2 02/10/23 09:45 Room Air 02/10/23 07:56 37.9 88 20 143/67 (92) 91 Capillary Refill : General Appearance: WD/WN, Chronically ill, Mild Distress, Other (lethargic) HEENT: PERRL/EOMI, Normal ENT Inspection, Pharynx Normal Neck: Full Range of Motion, Normal Inspection, Non Tender, Supple, Carotid Bruit Respiratory: Chest Non Tender, Lungs Clear, Normal Breath Sounds, No Accessory Muscle Use, No Respiratory Distress Cardiovascular: Regular Rate, Rhythm, No Edema, No Gallop, No JVD, No Murmur, Normal Peripheral Pulses Gastrointestinal: Normal Bowel Sounds, No Organomegaly, No Pulsatile Mass, Non Tender, Soft Back: CVA Tenderness (L), CVA Tenderness (R), Decreased Range of Motion, Muscle Spasm, Vertebral Tenderness, Other (Wearing brace) Extremity: Normal Capillary Refill, Normal Inspection, Normal Range of Motion, Non Tender, No Calf Tenderness, No Pedal Edema Neurologic/Psychiatric: Alert, Oriented x3, press set up person II-XII Norm as Tested, Abnormal Gait, Depressed Affect, Motor Weakness ( severe in lower extremities) Skin: Normal Color, Warm/Dry Lymphatic: No Adenopathy Results/Procedures Lab Laboratory Tests 02/10/23 06:21 Patient resulted labs reviewed. FIM Transfers Therapy Code Descriptions/Definitions Functional [place] Measure: 0=Not Assessed/NA 4=Minimal Assistance 1=Total Assistance 5=Supervision or Setup 2=Maximal Assistance 6=Modified [place] 3=Moderate Assistance 7=Complete IndependenceSCALE: Activities may be completed with or without assistive devices. 6-Tsxjpkgzmz-gyvytmk completes the activity by him/herself with no assistance from a helper. 5-Set-up or Clean-up Assistance-helper sets up or cleans up; patient completes activity. Mallory assists only prior to or following the activity. 4-Supervision or Touching Assistance-helper provides verbal cues and/or touching/steadying and/or contact guard assistance as patient completes activity. Assistance may be provided throughout the activity or intermittently. 3-Partial/Moderate Assistance-helper does LESS THAN HALF the effort. Mallory lifts, holds or supports trunk or limbs, but provides less than half the effort. 2-Substantial/Maximal Assistance-helper does MORE THAN HALF the effort. Mallory lifts or holds trunk or limbs and provides more than half the effort. 3-Jvdbfxshk-fhpegr does ALL the effort. Patient does none of the effort to complete the activity. Or, the assistance of 2 or more helpers is required for the patient to complete the activity. If activity was not attempted, code reason: 7-Patient Refused. 9-Not Applicable-not attempted and the patient did not perform the activity before the current illness, exacerbation or injury. 10-Not Attempted due to Environmental Limitations-(lack of equipment, weather restraints, etc.). 88-Not Attempted due to Medical Conditions or Safety Concerns. Roll Left to Right (QC): 2 (Max A ) Sit to Lying (QC): 1 (Mod A x 2 for safety ) Sit to Stand (QC): 1 (Mod A x 2 for safety ) Chair/Fdp-lt-Igabe Xfer(QC): 1 (Min/Mod A x 2 for safety ) Car Transfer (QC): 88 (weakness ) Gait Training Does the Patient Walk?: Yes Walk 10 feet (QC): 1 (Min A x 2 for safety ) Walk 50 ft with 2 Turns(QC): 88 (weakness ) Walk 150 ft (QC): 88 (weakness ) Walking 10ft/uneven surface-QC: 88 (weakness ) Gait Assistive Device: FWW Wheelchair Training Does the Pt Use a Wheelchair?: Yes Wheel 50 ft with 2 turns (QC): 1 (weakness ) Wheel 150 ft (QC): 88 (weakness ) Type of Wheelchair: Manual Stair Training 1 Step (curb) (QC): 88 (weakness ) 4 Steps (QC): 88 (weakness ) 12 Steps (QC): 88 (weakness ) Balance Picking up an Object (QC): 88 (weakness ) ADL-Treatment Eating (QC): 5 (Set-up A to open packages) Oral Hygiene (QC): 4 (NT secondary to time constraints -- based on observation, pt would be SBA for oral care; OT will continue to assess.) Shower/Bathe Self (QC): 2 (NT secondary to time constraints -- based on clinical observation, pt appears to need sub/max A for bathing; OT will continue to assess; pt will need AE secondary to back precautions.) Upper Body Dressing (QC): 3 (Min A to don shirt seated at EOB; pt required (A) to pull shirt down in thr back.) Lower Body Dressing (QC): 1 (Pt is total A for LBD; pt will requiring AE secondary to back precautions; pt requires 2 people for safety.) On/Off Footwear (QC): 1 (Pt is total A for donning/doffing footwear; pt will need AE secondary to back precautions.) Toileting Hygiene (QC): 1 (Pt it total A for toileting with pt requiring total (A) to clean yung area after voiding and needing total (A) to manage clothing; pt requires 2 people for safety.) Assessment/Plan Assessment and Plan Assess & Plan/Chief Complaint Assessment: Lumbar stenosis with neurogenic claudication status post L3-4 TLIFextension PSIF on 02/05/[address] Richard Hypertension Hyperlipidemia Advanced age Slow recovery Elevated LFT's LBBB on EKG Sinus tachycardia 120 on 02/08/23 initiated IVF NSTEMIspine surgery has approved addition of aspirin and anticoagulation tomorrow since decrease chance of spinal hematoma and bleeding causing paralysis and will need cardiac catheterization to fully evaluate Plan: Supportive care Monitor closely Pain controlled Slow therapy 02/08/2023: Check troponin LBBB IVF 02/09/2023: Aspirin/anticoagulation can be initiated tomorrow per spine surgery since decrease chance of spinal hematoma and paralysis Hep-Lock IV fluid Cardiology eval tomorrow 02/10/2023: (1) Lumbar stenosis with neurogenic claudication JANNIE TORRES DO Feb 10, 2023 05:04
[2023-02-10] MEDS: THERAPEUTIC MULTIVITAMIN W/MINERALS TABLET PO SCH (06:24)
[2023-02-10 06:30] LABS: BASOPHILS % (AUTO) 0 % (0-10); EOSINOPHILS % (AUTO) 0 % (0-10); HEMATOCRIT 29 % (35-52); HEMOGLOBIN 9.7 g/dL (11.5-16.0); LYMPHOCYTES # (AUTO) 1.1 10^3/uL (1.0-4.0); LYMPHOCYTES % (AUTO) 10 % (12-44); MEAN CORPUSCULAR HEMOGLOBIN 32 pg (25-34); MEAN CORPUSCULAR HGB CONC 33 g/dL (32-36); MEAN CORPUSCULAR VOLUME 94 fL (80-99); MONOCYTES # (AUTO) 1.2 10^3/uL (0.0-1.0); MONOCYTES % (AUTO) 11 % (0-12); NEUTROPHILS # (AUTO) 8.6 10^3/uL (1.8-7.8); NEUTROPHILS % (AUTO) 78 % (42-75); PLATELET COUNT 152 10^3/uL (130-400); WHITE BLOOD COUNT 10.9 10^3/uL (4.3-11.0)
[2023-02-10 06:59] LABS: BILIRUBIN,TOTAL 0.7 MG/DL (0.1-1.0); CALCIUM 9.6 MG/DL (8.5-10.1); CREATININE SERUM 1.11 MG/DL (0.60-1.30); POTASSIUM 3.3 MMOL/L (3.6-5.0); TOTAL PROTEIN 6.3 GM/DL (6.4-8.2)
[2023-02-10 07:56] VITALS: BP 143/67
[2023-02-10] MEDS ORDERED: NS IV 1000 ML 1,000 ML IV SCH ×2 (08:45→10:15)
[2023-02-10] MEDS: amLODIPine 5 MG TABLET PO SCH (08:54)
[2023-02-10] MEDS: LORATADINE 10 MG TABLET PO SCH (08:54)
[2023-02-10] MEDS: OXYBUTYNIN 5 MG TABLET PO SCH (08:54)
[2023-02-10] MEDS: DOCUSATE SODIUM 100 MG CAPSULE PO SCH (08:54)
[2023-02-10] MEDS: ROSUVASTATIN 5 MG TABLET PO SCH (08:55)
[2023-02-10] MEDS: SENNA W/DOCUSATE TABLET PO SCH (08:56)
[2023-02-10] MEDS: VITAMIN D3 25 MCG (1,000 UNITS) TABLET PO SCH (08:56)
--- NOTE | 2023-02-10 10:08 | ST Cognitive Linguistic Eval ---
Speech Evaluation-General Medical Diagnosis Lumbar stenosis neurogenic claudication s/p L3-L4 TLIF/extension PSIF Onset Date: Feb 05, 2023 Therapy Diagnosis Therapy Diagnosis: Lumbar stenosis neurogenic claudication s/p L3-L4 TLIF/extension PSIF Precautions Precautions/Isolations: Fall Prevention, Standard Precautions Referral Referring Physician: Dr. Kuhn Reason for Referral: Evaluation/Treatment Medical History Pertinent Medical History: GERD, HTN, OA Current History Pt is s/p TLIF on 02/05/23. Spouse reports that the pt requires up to 4 days to recover to baseline mental status post-anesthesia. Reviewed History: Yes Social History Current Living Status: Significant Other Speech PLF-Current Status Subjective Nursing reported new finding of elevated troponin levels this date, PT/OT on hold with NPO status pending possible cardiac cath. ST okay to evaluate. The pt was in bed at [facility] arrival, demonstrated appropriate greeting and was agreeable to assessment, however overall poor participation. Language Eval: Auditory Comprehends Simple Yes/No Ques: Functional Follows 1-Step Commands: Functional Language Eval: Verbal Language Completes Spontaneous Greeting: Functional Requests Basic Needs: Functional States Basic Personal Info: Functional Language Evaluation: Writing Writes Short Phrases: Functional Cognitive Patient Orientation Pt oriented to self, month and year. Not oriented to place, stating that she was in [facility]. Objective Formal/Standardized Tests MMSE Results The pt earned 13/30 on the MMSE. Orientation to time and place was poor. She had 3/3 registration and 1/3 recall. The pt did not attempt serial 7's or reverse spelling, closed eyes for each attempt. Oral Motor/Speech Production WFL Impression Moderate-severe cognitive deficit, not at typical baseline. Speech Longterm Goals Cafe Worker Goals The patient will demonstrate improved cognitive linguistic skills for safe discharge to the least restrictive environment. Time Frame: 7 days Speech-Plan Patient/Family Goals Patient/Family Goals: Pt unable to state goals, family not present Treatment Plan Speech Therapy Treatment Plan: Continue Plan of Care Frequency: Modified Program (IRF) Estimated Hrs Per Day: .25 hour per day Rehab Potential: Fair Safety Risks/Education Teaching Recipient: Patient Time Speech Therapy Time In: 08:00 Speech Therapy Time Out: 08:20 DATE: Feb 10, 2023 Total Billed Time: 20 Billed Treatment Time 1(SPSNDCOMP) MARKUS CH Feb 10, 2023 10:08
--- NOTE | 2023-02-10 10:13 | Cardiac Procedure Note-CS/ASA ---
Pre-Procedure Note Pre-Op Procedure Note Date of Available H&P: Feb 10, 2023 Date H&P Reviewed: Feb 10, 2023 Time H&P Reviewed: 08:00 History & Physical: H&P Reviewed, Patient Examed, No changes noted Pre-Operative Diagnosis: CAD Moderate Sedation PreProcedure Time 08:00 ASA Score 3 Airway Lungs Heart ASA score ASA 1: a normal healthy patient ASA 2: a patient with a mild systemic disease (mid diabetes, controlled hypertension, obesity ASA 3: a patient with a severe systemic disease that limits activity (angina, COPD, prior Myocardial infarction) ASA 4: a patient with an incapacitating disease that is a constant threat to life (CHF, renal failure) ASA 5: a moribund patient not expected to survive 24 hrs. (ruptured aneurysm) ASA 6: a declared brain- patient whose organs are being harvested. For emergent operations, add the letter E after the classification Mallampati Classification Grade 3 Sedation Plan Analgesia, Amnesia, Plan communicated to team members, Discussed options with patient/fam, Discussed risks with patient/fam The patient is an appropriate candidate to undergo the planned procedure, sedation, and anesthesia. The patient immediately re-assessed prior to indication. ANGEL HOGAN MD Feb 10, 2023 10:13
[2023-02-10] MEDS ORDERED: ATOR80TA76 PO (10:15)
[2023-02-10] MEDS ORDERED: ASPI-1238 PO (10:15)
[2023-02-10] MEDS ORDERED: CLOP-31 PO ×2 (10:15→11:17)
[2023-02-10] MEDS ORDERED: METO-333 PO (10:15)
--- NOTE | 2023-02-10 10:15 | Discharge Summary ---
Diagnosis/Chief Complaint Date of Admission Feb 07, 2023 at 13:15 Date of Discharge Discharge Date: Feb 10, 2023 Discharge Diagnosis Assessment: Lumbar stenosis with neurogenic claudication status post L3-4 TLIFextension PSIF on 02/05/[address] Richard Hypertension Hyperlipidemia Advanced age Slow recovery Elevated LFT's LBBB on EKG Sinus tachycardia 120 on 02/08/23 initiated IVF NSTEMIspine surgery has approved addition of aspirin and anticoagulation tomorrow since decrease chance of spinal hematoma and bleeding causing paralysis and will need cardiac catheterization to fully evaluate s/p cath revealing acute OK with thrombus in RA prompting transfer where spine surgeon is located Discharge Summary Discharge Physical Examination Allergies: Coded Allergies: No Allergy Information Available (Unverified , 02/07/23) Vitals & I&Os Vital Signs Date Time Temp Pulse Resp B/P (MAP) Pulse Ox O2 Delivery O2 Flow Rate FiO2 02/10/23 09:45 Room Air 02/10/23 07:56 37.9 88 20 143/67 (92) 91 General Appearance: Alert, Oriented X3, Cooperative Respiratory: Clear to Auscultation Cardiovascular: Regular Rate Psych/Mental Status: Mental Status NL Hospital Course Was the Problem List Reviewed?: Yes Short course after she was transferred from [facility] for rehab. She had very slow recovery. Tachycardia noted on Friday so started IVF and obtained EKG to r/o AF and was found to have LBBB. No h/o cardiac issues. Troponin revealed low elevation so Cardiology consulted but could not initiate ASA of blood thinners until Friday to decrease chance of spinal hematoma and paralysis so she remained stable on Telemetry and Cath performed for diagnostic purposes. Patient was DC and sent to ICU due to RCA thrombus. Labs (last 24 hrs) Laboratory Tests 02/08/23 06:45: White Blood Count 11.1H, Red Blood Count 3.43L, Hemoglobin 10.8L, Hematocrit 33L , Mean Corpuscular Volume 96, Mean Corpuscular Hemoglobin 32, Mean Corpuscular Hemoglobin Concent 33, Red Cell Distribution Width 13.2, Platelet Count 230, Mean Platelet Volume 10.2, Immature Granulocyte % (Auto) 0, Neutrophils (%) (Auto) 76H, Lymphocytes (%) (Auto) 12, Monocytes (%) (Auto) 11, Eosinophils (%) (Auto) 1, Basophils (%) (Auto) 1, Neutrophils # (Auto) 8.4H, Lymphocytes # (Auto) 1.3, Monocytes # (Auto) 1.2H, Eosinophils # (Auto) 0.1, Basophils # (Auto) 0.1, Immature Granulocyte # (Auto) 0.0, Sodium Level 135, Potassium Level 3.9, Chloride Level 102, Carbon Dioxide Level 22, Anion Gap 11, Blood Urea Nit rogen 24H, Creatinine 1.11, Estimat Glomerular Filtration Rate 52, BUN/Creatinine Ratio 22, Glucose Level 140H, Calcium Level 10.3H, Corrected Calcium 10.7H, Total Bilirubin 1.1H, Aspartate Amino Transf (AST/SGOT) 70H, Alanine Aminotransferase (ALT/SGPT) 110H, Alkaline Phosphatase 248H, Total Protein 6.9, Albumin 3.5 02/08/23 15:30: Gamma Glutamyl Transpeptidase 887H, Ammonia 14, Troponin I 0.087H, Triglycerides Level 93, Cholesterol Level 116, LDL Cholesterol Direct 49, VLDL Cholesterol 19, HDL Cholesterol 50, Thyroid Stimulating Hormone (TSH) 0.05L, Hepatitis A IgM Antibody Non-Reactive, Hepatitis B Surface Antigen Non-Reactive, Hepatitis B Core IgM Antibody Non-Reactive, Hepatitis C Antibody Non-Reactive 02/08/23 19:40: Troponin I 0.123H 02/09/23 07:15: White Blood Count 11.5H, Red Blood Count 3.32L, Hemoglobin 10.4L, Hematocrit 32L , Mean Corpuscular Volume 96, Mean Corpuscular Hemoglobin 31, Mean Corpuscular Hemoglobin Concent 33, Red Cell Distribution Width 13.0, Platelet Count 239, Mean Platelet Volume 10.1, Immature Granulocyte % (Auto) 0, Neutrophils (%) (Auto) 77H, Lymphocytes (%) (Auto) 10L, Monocytes (%) (Auto) 12, Eosinophils (%) (Auto) 0, Basophils (%) (Auto) 1, Neutrophils # (Auto) 8.8H, Lymphocytes # (Auto) 1.1, Monocytes # (Auto) 1.4H, Eosinophils # (Auto) 0.1, Basophils # (Auto) 0.1, Immature Granulocyte # (Auto) 0.0, Sodium Level 140, Potassium Level 3.8, Chloride Level 107, Carbon Dioxide Level 23, Anion Gap 10, Blood Urea Nitrogen 25H, Creatinine 1.10, Estimat Glomerular Filtration Rate 52, BUN/Creatinine Ratio 23, Glucose Level 138H, Calcium Level 9.9, Corrected Calcium 10.4H, Total Bilirubin 1.3H, Aspartate Amino Transf (AST/SGOT) 35H, Alanine Aminotransferase (ALT/SGPT) 69H, Alkaline Phosphatase 221H, Total Protein 6.7, Albumin 3.4, Troponin I 1.834*H, B-Type Natriuretic Peptide 450.6H, Free Thyroxine 1.63H 02/10/23 06:21: White Blood Count 10.9, Red Blood Count 3.08L, Hemoglobin 9.7L, Hematocrit 29L, Mean Corpuscular Volume 94, Mean Corpuscular Hemoglobin 32, Mean Corpuscular Hemoglobin Concent 33, Red Cell Distribution Width 13.0, Platelet Count 152, Mean Platelet Volume 11.0, Immature Granulocyte % (Auto) 1, Neutrophils (%) (Auto) 78H, Lymphocytes (%) (Auto) 10L, Monocytes (%) (Auto) 11, Eosinophils (%) (Auto) 0, Basophils (%) (Auto) 0, Neutrophils # (Auto) 8.6H, Lymphocytes # (Auto) 1.1, Monocytes # (Auto) 1.2H, Eosinophils # (Auto) 0.0, Basophils # (Auto) 0.0, Immature Granulocyte # (Auto) 0.1, Sodium Level 137, Potassium Level 3.3L, Chloride Level 105, Carbon Dioxide Level 22, Anion Gap 10, Blood Urea Nitrogen 26H, Creatinine 1.11, Estimat Glomerular Filtration Rate 52, BUN/Creatinine Ratio 23, Glucose Level 143H, Calcium Level 9.6, Corrected Calcium 10.4H, Total Bilirubin 0.7, Aspartate Amino Transf (AST/SGOT) 47H, Alanine Aminotransferase (ALT/SGPT) 45, Alkaline Phosphatase 171H, Troponin I 7.972*H, Total Protein 6.3L, Albumin 3.0L 02/10/23 15:14: Glucometer 148H Pending Labs Laboratory Tests 02/08/23 06:45: White Blood Count 11.1, Red Blood Count 3.43, Hemoglobin 10.8, Hematocrit 33, Mean Corpuscular Volume 96, Mean Corpuscular Hemoglobin 32, Mean Corpuscular Hemoglobin Concent 33, Red Cell Distribution Width 13.2, Platelet Count 230, Mean Platelet Volume 10.2, Immature Granulocyte % (Auto) 0, Neutrophils (%) (Auto) 76, Lymphocytes (%) (Auto) 12, Monocytes (%) (Auto) 11, Eosinophils (%) (Auto) 1, Basophils (%) (Auto) 1, Neutrophils # (Auto) 8.4, Lymphocytes # (Auto) 1.3, Monocytes # (Auto) 1.2, Eosinophils # (Auto) 0.1, Basophils # (Auto) 0.1, Immature Granulocyte # (Auto) 0.0, Sodium Level 135, Potassium Level 3.9, Chloride Level 102, Carbon Dioxide Level 22, Anion Gap 11, Blood Urea Nitrogen 24, Creatinine 1.11, Estimat Glomerular Filtration Rate 52, BUN/Creatinine Ratio 22, Glucose Level 140, Calcium Level 10.3, Corrected Calcium 10.7, Total Bilirubin 1.1, Aspartate Amino Transf (AST/SGOT) 70, Alanine Aminotransferase (ALT/SGPT) 110, Alkaline Phosphatase 248, Total Protein 6.9, Albumin 3.5 02/08/23 15:30: Gamma Glutamyl Transpeptidase 887, Ammonia 14, Troponin I 0.087, Triglycerides Level 93, Cholesterol Level 116, LDL Cholesterol Direct 49, VLDL Cholesterol 19, HDL Cholesterol 50, Thyroid Stimulating Hormone (TSH) 0.05, Hepatitis A IgM Antibody Non-Reactive, Hepatitis B Surface Antigen Non-Reactive, Hepatitis B Core IgM Antibody Non-Reactive, Hepatitis C Antibody Non-Reactive 02/08/23 19:40: Troponin I 0.123 02/09/23 07:15: White Blood Count 11.5, Red Blood Count 3.32, Hemoglobin 10.4, Hematocrit 32, Mean Corpuscular Volume 96, Mean Corpuscular Hemoglobin 31, Mean Corpuscular Hem oglobin Concent 33, Red Cell Distribution Width 13.0, Platelet Count 239, Mean Platelet Volume 10.1, Immature Granulocyte % (Auto) 0, Neutrophils (%) (Auto) 77, Lymphocytes (%) (Auto) 10, Monocytes (%) (Auto) 12, Eosinophils (%) (Auto) 0, Basophils (%) (Auto) 1, Neutrophils # (Auto) 8.8, Lymphocytes # (Auto) 1.1, Monocytes # (Auto) 1.4, Eosinophils # (Auto) 0.1, Basophils # (Auto) 0.1, Immature Granulocyte # (Auto) 0.0, Sodium Level 140, Potassium Level 3.8, Chloride Level 107, Carbon Dioxide Level 23, Anion Gap 10, Blood Urea Nitrogen 25, Creatinine 1.10, Estimat Glomerular Filtration Rate 52, BUN/Creatinine Ratio 23, Glucose Level 138, Calcium Level 9.9, Corrected Calcium 10.4, Total Bilirubin 1.3, Aspartate Amino Transf (AST/SGOT) 35, Alanine Aminotransferase (ALT/SGPT) 69, Alkaline Phosphatase 221, Total Protein 6.7, Albumin 3.4, Troponin I 1.834, B-Type Natriuretic Peptide 450.6, Free Thyroxine 1.63 02/10/23 06:21: White Blood Count 10.9, Red Blood Count 3.08, Hemoglobin 9.7, Hematocrit 29, Mean Corpuscular Volume 94, Mean Corpuscular Hemoglobin 32, Mean Corpuscular Hemoglobin Concent 33, Red Cell Distribution Width 13.0, Platelet Count 152, Mean Platelet Volume 11.0, Immature Granulocyte % (Auto) 1, Neutrophils (%) (Auto) 78, Lymphocytes (%) (Auto) 10, Monocytes (%) (Auto) 11, Eosinophils (%) (Auto) 0, Basophils (%) (Auto) 0, Neutrophils # (Auto) 8.6, Lymphocytes # (Auto) 1.1, Monocytes # (Auto) 1.2, Eosinophils # (Auto) 0.0, Basophils # (Auto) 0.0, Immature Granulocyte # (Auto) 0.1, Sodium Level 137, Potassium Level 3.3, Chloride Level 105, Carbon Dioxide Level 22, Anion Gap 10, Blood Urea Nitrogen 26, Creatinine 1.11, Estimat Glomerular Filtration Rate 52, BUN/Creatinine Ratio 23, Glucose Level 143, Calcium Level 9.6, Corrected Calcium 10.4, Total Bilirubin 0.7, Aspartate Amino Transf (AST/SGOT) 47, Alanine Aminotransferase (ALT/SGPT) 45, Alkaline Phosphatase 171, Troponin I 7.972, Total Protein 6.3, Albumin 3.0 02/10/23 15:14: Glucometer 148 Discharge Home Medications: Active Scripts Active Plavix (Clopidogrel Bisulfate) 75 Mg Tablet 75 Mg PO DAILY 30 Days if ok with spinal surgery Metoprolol Tartrate 25 Mg Tablet 25 Mg PO BID 30 Days Aspirin EC (Aspirin) 81 Mg Tablet.dr 81 Mg PO DAILY 365 Days Atorvastatin Calcium 80 Mg Tablet 80 Mg PO DAILY 365 Days Reported [facility] Tablet (Vit B Cmplx 3/FA/Vit C/Biotin) 1 Mg-60 Mg-300 Mcg Tablet 1 Each PO DAILY Valsartan-Hctz 160-12.5 mg Tab (Valsartan/Hydrochlorothiazide) 160 Mg-12.5 Mg Tablet 1 Each PO DAILY Rosuvastatin Calcium 5 Mg Tablet 5 Mg PO DAILY Oxycodone HCl 5 Mg Tablet 5 Mg PO Q4H PRN MDD 30MG Oxybutynin Chloride 5 Mg Tablet 5 Mg PO BID Hydrochlorothiazide 25 Mg Tablet 25 Mg PO DAILY Acid Electronic Health Records Specialist (FAMOTIDINE) (Famotidine) 20 Mg Tablet 20 Mg PO DAILY PRN Cyclobenzaprine HCl 10 Mg Tablet 10 Mg PO Q8H PRN Vitamin D3 (Cholecalciferol (Vitamin D3)) 25 Mcg (1000 Unit) Tablet 25 Mcg PO DAILY Cetirizine HCl 5 Mg Tablet 5 Mg PO DAILY Amlodipine Besylate 5 Mg Tablet 5 Mg PO DAILY Tylenol Extra Strength (Acetaminophen) 500 Mg Tablet 1,000 Mg PO Q6H PRN Instructions to patient/family Please see electronic discharge instructions given to patient. Diagnosis/Problems Diagnosis/Problems (1) Lumbar stenosis with neurogenic claudication Clinical Quality Measures DVT/VTE Risk/Contraindication: Contraindications-Pharm: Other *list below* Other: spinal surgery JANNIE TORRES DO Feb 10, 2023 10:15
[2023-02-10] MEDS ORDERED: ASPIRIN 325 MG TABLET PO ONE (10:45)
--- NOTE | 2023-02-10 14:03 | Therapy Team Discharge Summary ---
Therapy Discharge Summary Discharge Recommendations Date of Discharge Feb 10, 2023 at 09:15 Therapy D/C Recommendations: Other, See Comments (Acute care ) Physical Therapy Pt is a 77 y/o female S/P L3-4 TLIF/extension PSIF on 02/05/23; Admitted to ARU on 02/07/23. LOF pt was Ind with with the 4WW for shorter distances and has an electric scooter for longer distances outside the home. Upon PT eval, pt was Max A - Dep for functional mobility and walking of ~ 15ft with the FWW. Pt transferred to acute care secondary to NV and pt will not return to ARU. D/C from PT at this time. Roll Left to Right (QC): 2 (Max A ) Sit to Lying (QC): 1 (Mod A x 2 for safety ) Lying to Sitting/Side of Bed(Q: 1 (Mod A x 2 for safety ) Sit to Stand (QC): 1 (Mod A x 2 for safety ) Chair/Ice-pf-Wfzuv Xfer(QC): 1 (Min/Mod A x 2 for safety ) Toilet Transfer (QC): 1 Car Transfer (QC): 88 (weakness ) Does the Patient Walk: Yes Mode of Locomotion: Both Anticipated Mode of Locomotion: Both Walk 10 feet (QC): 1 (Min A x 2 for safety ) Walk 50 ft with 2 Turns(QC): 88 (weakness ) Walk 150 ft (QC): 88 (weakness ) Walking 10ft on uneven surface: 88 (weakness ) Distance: 15ft Gait Assistive Device: FWW Does the Pt Use a Wheelchair: Yes Wheel 50 ft with 2 turns (QC): 1 (weakness ) Wheel 150 ft (QC): 88 (weakness ) Type of Wheelchair: Manual 1 Step (curb) (QC): 88 (weakness ) 4 Steps (QC): 88 (weakness ) 12 Steps (QC): 88 (weakness ) Walking Assistive Device: Walker Balance Sitting Static: Fair Balance Sitting Dynamic: Poor Balance-Standing Static: Poor Picking up an Object (QC): 88 (weakness ) Occupational Therapy Decreased Activ Tolerance, Decreased Safety Aware, Decreased UE Strength, Dependent Transfers, Impaired Bed Mobility, Impaired Cognition, Impaired Funct Balance, Impaired I ADL's, Impaired Self-Care Skills Eating (QC): 5 (Set-up A to open packages) Oral Hygiene (QC): 4 (NT secondary to time constraints -- based on observation, pt would be SBA for oral care; OT will continue to assess.) Shower/Bathe Self (QC): 2 (NT secondary to time constraints -- based on clinical observation, pt appears to need sub/max A for bathing; OT will continue to assess; pt will need AE secondary to back precautions.) Upper Body Dressing (QC): 3 (Min A to don shirt seated at EOB; pt required (A) to pull shirt down in thr back.) Lower Body Dressing (QC): 1 (Pt is total A for LBD; pt will requiring AE secondary to back precautions; pt requires 2 people for safety.) On/Off Footwear (QC): 1 (Pt is total A for donning/doffing footwear; pt will need AE secondary to back precautions.) Toileting Hygiene (QC): 1 (Pt it total A for toileting with pt requiring total (A) to clean yung area after voiding and needing total (A) to manage clothing; pt requires 2 people for safety.) PT Final Expense Agent Goals Final Expense Agent Goals PT Correction Goals Time Frame: Feb 21, 2023 Roll Left to Right (QC): 3 (Pt will complete all aspects of functional mobility with Min A, in order to safely return home with spouse. ) Sit to Lying (QC): 3 (Pt will complete all aspects of functional mobility with Min A, in order to safely return home with spouse. ) Lying-Sitting on Side/Bed(QC): 3 (Pt will complete all aspects of functional mobility with Min A, in order to safely return home with spouse. ) Sit to Stand (QC): 3 (Pt will complete all aspects of functional mobility with Min A, in order to safely return home with spouse. ) Chair/Uib-az-Ldyjl Xfer(QC): 3 (Pt will complete all aspects of functional mobility with Min A, in order to safely return home with spouse. ) Toilet/Commode Transfer (QC): 3 (Pt will complete all aspects of functional mobility with Min A, in order to safely return home with spouse. ) Car Transfer (QC): 3 (Pt will complete all aspects of functional mobility with Min A, in order to safely return home with spouse. ) Does the Patient Walk: Yes Walk 10 feet (QC): 3 (Pt will complete all aspects of functional mobility with Min A, in order to safely return home with spouse. ) Walk 10ft-Uneven Surface(QC): 3 (Pt will complete all aspects of functional mobility with Min A, in order to safely return home with spouse. ) Walk 50ft with 2 Turns (QC): 3 (Pt will complete all aspects of functional mobility with Min A, in order to safely return home with spouse. ) Walk 150 ft (QC): 9 (Pt used an [employer] scooter for longer distances at PLOF. ) Does the Pt use WC or Scooter?: Yes Wheel 50 feet with 2 turns (QC: 3 (Pt will complete all aspects of functional mobility with Min A, in order to safely return home with spouse. ) Type: Manual Wheel 150 feet: 3 (Pt will complete all aspects of functional mobility with Min A, in order to safely return home with spouse. ) Type: Manual 1 Step (curb) (QC): 3 (Pt will complete all aspects of functional mobility with Min A, in order to safely return home with spouse. ) 4 Steps (QC): 3 (Pt will complete all aspects of functional mobility with Min A, in order to safely return home with spouse. ) 12 Steps (QC): 9 (Pt did not complete at PLOF ) Picking up an Object (QC): 3 (with paste up worker ) OT Correction Goals Final Expense Agent Goals Acute change in mental status: 1 Inattention: 0 Disorganized thinkin Altered level of consciousness: 2 Eating (QC): 6 Oral Hygiene (QC): 6 Toileting Hygiene (QC): 4 Shower/Bathe Self (QC): 5 Upper Body Dressing (QC): 6 Lower Body Dressing (QC): 4 On/Off Footwear (QC): 6 1=Demonstrate adherence to instructed precautions during ADL tasks. 2=Patient will verbalize/demonstrate understanding of assistive devices/modifications for ADL. 3=Patient will improve strength/tolerance for activity to enable patient to perform ADL's. Speech Correction Goals Correction Goals The patient will demonstrate improved cognitive linguistic skills for safe discharge to the least restrictive environment. Time Frame: 7 days AD JERONIMO PT Feb 10, 2023 14:03
[2023-02-10 15:03] LABS: HEPATITIS C ANTIBODY C Non-Reactive (Non-Reactive)
--- NOTE | 2023-02-10 16:11 | Therapy Team Discharge Summary ---
Therapy Discharge Summary Discharge Recommendations Date of Discharge Feb 10, 2023 at 09:15 Therapy D/C Recommendations: Other, See Comments (Acute care ) Physical Therapy Roll Left to Right (QC): 2 (Max A ) Sit to Lying (QC): 1 (Mod A x 2 for safety ) Lying to Sitting/Side of Bed(Q: 1 (Mod A x 2 for safety ) Sit to Stand (QC): 1 (Mod A x 2 for safety ) Chair/Nhf-gl-Xoqrl Xfer(QC): 1 (Min/Mod A x 2 for safety ) Toilet Transfer (QC): 1 Car Transfer (QC): 88 (weakness ) Does the Patient Walk: Yes Mode of Locomotion: Both Anticipated Mode of Locomotion: Both Walk 10 feet (QC): 1 (Min A x 2 for safety ) Walk 50 ft with 2 Turns(QC): 88 (weakness ) Walk 150 ft (QC): 88 (weakness ) Walking 10ft on uneven surface: 88 (weakness ) Distance: 15ft Gait Assistive Device: FWW Does the Pt Use a Wheelchair: Yes Wheel 50 ft with 2 turns (QC): 1 (weakness ) Wheel 150 ft (QC): 88 (weakness ) Type of Wheelchair: Manual 1 Step (curb) (QC): 88 (weakness ) 4 Steps (QC): 88 (weakness ) 12 Steps (QC): 88 (weakness ) Walking Assistive Device: Walker Balance Sitting Static: Fair Balance Sitting Dynamic: Poor Balance-Standing Static: Poor Picking up an Object (QC): 88 (weakness ) Occupational Therapy Pt is a 77 y/o female S/P L3-4 TLIF/extension PSIF on 02/05/23; Admitted to ARU on 02/07/23. At evaluation, pt was set-up A for feeding, SBA for oral care, sub/max A for bathing, partial/mod A for UBD, total A for LBD, total A for footwear, and total A for toileting. Pt transferred to acute care on 02/10/23 secondary to NV and pt will not return to ARU. D/C from OT at this time. Decreased Activ Tolerance, Decreased Safety Aware, Decreased UE Strength, Dependent Transfers, Impaired Bed Mobility, Impaired Cognition, Impaired Funct Balance, Impaired I ADL's, Impaired Self-Care Skills Eating (QC): 5 (Set-up A to open packages) Oral Hygiene (QC): 4 (NT secondary to time constraints -- based on observation, pt would be SBA for oral care; OT will continue to assess.) Shower/Bathe Self (QC): 2 (NT secondary to time constraints -- based on clinical observation, pt appears to need sub/max A for bathing; OT will continue to assess; pt will need AE secondary to back precautions.) Upper Body Dressing (QC): 3 (Min A to don shirt seated at EOB; pt required (A) to pull shirt down in thr back.) Lower Body Dressing (QC): 1 (Pt is total A for LBD; pt will requiring AE secondary to back precautions; pt requires 2 people for safety.) On/Off Footwear (QC): 1 (Pt is total A for donning/doffing footwear; pt will need AE secondary to back precautions.) Toileting Hygiene (QC): 1 (Pt it total A for toileting with pt requiring total (A) to clean yung area after voiding and needing total (A) to manage clothing; pt requires 2 people for safety.) PT Purification Director Goals Fdc Goals PT Fdc Goals Time Frame: Feb 21, 2023 Roll Left to Right (QC): 3 (Pt will complete all aspects of functional mobility with Min A, in order to safely return home with spouse. ) Sit to Lying (QC): 3 (Pt will complete all aspects of functional mobility with Min A, in order to safely return home with spouse. ) Lying-Sitting on Side/Bed(QC): 3 (Pt will complete all aspects of functional mobility with Min A, in order to safely return home with spouse. ) Sit to Stand (QC): 3 (Pt will complete all aspects of functional mobility with Min A, in order to safely return home with spouse. ) Chair/Oyj-ge-Mafjf Xfer(QC): 3 (Pt will complete all aspects of functional mobility with Min A, in order to safely return home with spouse. ) Toilet/Commode Transfer (QC): 3 (Pt will complete all aspects of functional mobility with Min A, in order to safely return home with spouse. ) Car Transfer (QC): 3 (Pt will complete all aspects of functional mobility with Min A, in order to safely return home with spouse. ) Does the Patient Walk: Yes Walk 10 feet (QC): 3 (Pt will complete all aspects of functional mobility with Min A, in order to safely return home with spouse. ) Walk 10ft-Uneven Surface(QC): 3 (Pt will complete all aspects of functional mobility with Min A, in order to safely return home with spouse. ) Walk 50ft with 2 Turns (QC): 3 (Pt will complete all aspects of functional mobility with Min A, in order to safely return home with spouse. ) Walk 150 ft (QC): 9 (Pt used an [employer] scooter for longer distances at OF. ) Does the Pt use WC or Scooter?: Yes Wheel 50 feet with 2 turns (QC: 3 (Pt will complete all aspects of functional mobility with Min A, in order to safely return home with spouse. ) Type: Manual Wheel 150 feet: 3 (Pt will complete all aspects of functional mobility with Min A, in order to safely return home with spouse. ) Type: Manual 1 Step (curb) (QC): 3 (Pt will complete all aspects of functional mobility with Min A, in order to safely return home with spouse. ) 4 Steps (QC): 3 (Pt will complete all aspects of functional mobility with Min A, in order to safely return home with spouse. ) 12 Steps (QC): 9 (Pt did not complete at PLOF ) Picking up an Object (QC): 3 (with director of counseling ) OT Fdc Goals Fdc Goals Acute change in mental status: 1 Inattention: 0 Disorganized thinkin Altered level of consciousness: 2 Eating (QC): 6 Oral Hygiene (QC): 6 Toileting Hygiene (QC): 4 Shower/Bathe Self (QC): 5 Upper Body Dressing (QC): 6 Lower Body Dressing (QC): 4 On/Off Footwear (QC): 6 1=Demonstrate adherence to instructed precautions during ADL tasks. 2=Patient will verbalize/demonstrate understanding of assistive devices/modifications for ADL. 3=Patient will improve strength/tolerance for activity to enable patient to perform ADL's. Speech Fdc Goals Fdc Goals The patient will demonstrate improved cognitive linguistic skills for safe discharge to the least restrictive environment. Time Frame: 7 days ZEE LOPEZ, TERE Feb 10, 2023 16:11
[2023-02-10] MEDS ORDERED: meTOprolol TARTRATE (IR) 25 MG TABLET PO SCH (21:00)
[2023-02-11] MEDS ORDERED: PANTOPRAZOLE 40 MG TABLET PO SCH (09:00)
== END 2023-02-10 09:15 | disposition short-term general hospital (02) | DRG 559 ==
PROVIDERS: ADMIT Internal Medicine; ATTEND Internal Medicine
DX: Z47.89 Encounter for other orthopedic aftercare (principal); I21.4 Non-ST elevation (NSTEMI) myocardial infarction; I10 Essential (primary) hypertension; E78.00 Pure hypercholesterolemia, unspecified; E86.0 Dehydration; M19.90 Unspecified osteoarthritis, unspecified site; R00.0 Tachycardia, unspecified; I44.7 Left bundle-branch block, unspecified; R74.8 Abnormal levels of other serum enzymes; Z98.1 Arthrodesis status
CPT/HCPCS: 36415; 71275; 80053; 80061; 80074; 82140; 82947; 82977; 83880; 84439; 84443; 84484; 85025; 93005; 93306

== ENCOUNTER 2023-02-10 08:46 | Day surgery (SDC) | payer MEDICARE, OTHER ==
[2023-02-10] VITALS (19 sets, daily range): BP systolic 130–154; BP diastolic 51–79
[~2023-02-10 08:46] MED LIST: ACET-2267 PO; AMLO-250 PO; CETI5TAB6 PO; CHOL10004 PO; CYCL10TA25 PO; FAMO-356 PO; HYDR25TA4 PO; OXYB5TAB13 PO; OXYC5TAB PO; ROSU5TAB13 PO; VALS1TAB75 PO; VIT1TABL59 PO
[2023-02-10] MEDS ORDERED: LIDOCAINE 1% INJ 20 ML VIAL ONE (08:49)
[2023-02-10] MEDS ORDERED: NS IV 1000 ML 0 ML ONE (08:49)
[2023-02-10] MEDS ORDERED: HEParin (CATH LAB) 2,000 ML IV ONE (08:49)
[2023-02-10] MEDS ORDERED: NITRO DRIP 25000 MCG/D5W 250 ML IV ONE (08:52)
[2023-02-10] MEDS ORDERED: fentaNYL INJECTION 100 MCG/2 ML VIAL ONE (08:52)
[2023-02-10] MEDS ORDERED: VERAPAMIL 5 MG/2 ML (CALAN) VIAL IV ONE (08:52)
[2023-02-10] MEDS ORDERED: MIDAZOLAM INJ 5 MG/5 ML VIAL ONE (08:52)
[2023-02-10] MEDS ORDERED: METO-333 PO (10:15)
[2023-02-10] MEDS ORDERED: CLOP-31 PO ×2 (10:15→11:17)
[2023-02-10] MEDS ORDERED: ATOR80TA76 PO (10:15)
[2023-02-10] MEDS ORDERED: ASPI-1238 PO (10:15)
--- NOTE | 2023-02-10 10:18 | Cardiology Progress Note ---
Subjective Date Seen by Provider: Feb 10, 2023 Time Seen by Provider: 08:00 Subjective/Events-last exam Patient was seen at bedside laying down comfortably, denied any active chest pain Review of Systems General: No Chills, No Night Sweats, No Fatigue, No Malaise, No Appetite, No Other HEENT: No Head Aches, No Visual Changes, No Eye Pain, No Ear Pain, No Dysphasia, No Sinus Congestion, No Post Nasal Drip, No Sore Throat, No Other Pulmonary: No Dyspnea, No Cough, No Pleuritic Chest Pain, No Other Cardiovascular: No: Chest Pain, Palpitations, Orthopnea, Paroxysmal Noc. Dyspnea, Edema, Lt Headedness, Other Objective-Cardiology Exam Last Set of Vital Signs Vital Signs 02/10/23 02/10/23 12:00 12:27 Pulse 91 Resp 35 B/P (MAP) 134/79 (97) Pulse Ox 95 O2 Delivery Nasal Cannula O2 Flow Rate 1.00 I&O General: Alert, Oriented X3, Cooperative HEENT: Atraumatic, PERRLA Neck: Supple, No JVD, No Thyromegaly Lungs: Clear to Auscultation, Normal Air Movement Heart: Regular Rate, Normal S1, Normal S2, No Murmurs Abdomen: Normal Bowel Sounds, Soft, No Tenderness, No Hepatosplenomegaly, No Masses Extremities: No Clubbing, No Cyanosis, No Edema, Normal Pulses, No Tenderness/Swelling Skin: No Rashes, No Breakdown, No Significant Lesion Neuro: Normal Gait, Normal Speech, Strength at 5/5 X4 Ext, Normal Tone, Sensation Intact Psych/Mental Status: Mental Status NL, Mood NL Results Lab A/P-Cardiology Admission Diagnosis Subacute myocardial infarction Coronary artery disease Extensive back surgery Sinus tachycardia Assessment/Plan Subacute myocardial infarction, patient denied any active chest pain Had positive troponin Cardiac catheterization carried out on February 10, 2023 showing a thrombus in the mid right coronary artery, collaterals filling the distal right. Cannot tolerate aggressive anticoagulation at this time, discussed with Dr. Tong and I recommend transferring her to a tertiary care center Status post extensive spine surgery, still having a drain with bloody drainage Lumbar stenosis with neurologic claudication status post L3-4 TLIF surgery done by Dr. Richard on February 05, 2023 Sinus tachycardia, monitor heart rate We will start Lipitor 80 mg daily, beta-blockers and aspirin ANGEL HOGAN MD Feb 10, 2023 10:18
--- NOTE | 2023-02-10 10:23 | Cardiac Cath Report ---
Cardiac Cath Report Physician (s)/User Experience Analyst (s) Physician ANGEL HOGAN MD Pre-Procedure Diagnosis Pre-Procedure Diagnosis: CAD Post-Procedure Note Procedure Start Date: Feb 10, 2023 Name of Procedure: Left heart catheterization Findings/Procedure Note PROCEDURE NOTE: 77-year-old lady with no significant cardiac history, had extensive back surgery for spinal stenosis on February 05, 2023 was in cardiac rehab, noted to have elevation in troponin level. Cardiac catheterization was advised without the use of aggressive anticoagulation. After explaining the procedure to the patient, all pros and cons were explained, all questions were answered. The patient signed the consent and then she was placed in the cardiac catheterization laboratory. Groin was prepped in SL fashion local anesthesia was used. Sheath placed in the right radial artery, [place] catheter was advanced, I had difficulties advancing the wire through the brachiocephalic trunk due to calcification and tortuosity. [place] catheter was advanced to the left ventricular cavity, pressure was measured, pullback LV to aorta was done, subselective injection in the left system was adequate. Then I engaged the right coronary artery and angiogram was done. At the end of the procedure the sheath was removed. Vascular band was used FINDINGS: Hemodynamics LV 147/28, end-diastolic pressure of 28 Aorta 142/67 mean of 87 ANATOMY: Left Main is calcified with 40 to 50% stenosis nonobstructive disease Left Anterior Descending is moderate in size, mild disease nonobstructive disease Left Circumflex is nondominant artery with mild disease nonobstructive disease Right Coronary Artery is dominant artery with total occlusion in the mid right coronary artery receiving right to right collaterals and [id number] collaterals. LV Gram was not done, pressure was measured CONCLUSION: Subtotal occlusion/total occlusion of the right coronary artery at the midportion with right to right collaterals and [id number] collaterals Elevated left ventricular end-diastolic pressure DISCUSSION AND RECOMMENDATION: Patient suffered subacute myocardial infarction, has elevation in troponin, no active chest pain, I am concerned about the use of anticoagulation especially with the bloody drainage from her back. Anesthesia Type: Conscious Sedation Estimated blood loss (mL): 10 ml Contrast Amount: 45 ml Total Radiation Dose: 298 mGy Post-Procedure Diagnosis Post-operative diagnosis: Non-ST elevation myocardial infarction Coronary artery disease Spinal stenosis Hypertension (1) Lumbar stenosis with neurogenic claudication ANGEL HOGAN MD Feb 10, 2023 10:23
[2023-02-10] MEDS ORDERED: NS IV 1000 ML 1,000 ML IV SCH ×2 (10:45→11:15)
[2023-02-10] MEDS ORDERED: BISACODYL 10 MG SUPPOSITORY PR PRN (11:15)
[2023-02-10] MEDS ORDERED: diphenhydrAMINE 25 MG TABLET PO PRN (11:15)
[2023-02-10] MEDS ORDERED: HYDROmorphone INJECTION 2 MG/ML VIAL IV PRN (11:15)
[2023-02-10] MEDS ORDERED: ACETAMINOPHEN 500 MG TABLET PO PRN (11:15)
[2023-02-10] MEDS ORDERED: FAMOTIDINE 20 MG TABLET PO PRN (11:15)
[2023-02-10] MEDS ORDERED: oxyCODONE IMMEDIATE RELEASE 5 MG TABLET PO PRN ×2 (11:15)
[2023-02-10] MEDS ORDERED: NS IV 500 ML 500 ML IV PRN (11:15)
[2023-02-10] MEDS ORDERED: MELATONIN 3 MG TABLET PO PRN (11:15)
[2023-02-10] MEDS ORDERED: LACTULOSE SYRUP 10GM/15ML 30ML UDC PO PRN (11:15)
[2023-02-10] MEDS ORDERED: CALCIUM CARBONATE 500 MG CHEW TABLET PO PRN (11:15)
[2023-02-10] MEDS ORDERED: MILK OF MAGNESIA 400 MG/5 ML 30 ML UDC PO PRN (11:15)
[2023-02-10] MEDS ORDERED: ANTACID SUSPENSION 30 ML UDC PO PRN (11:15)
[2023-02-10] MEDS ORDERED: ACETAMINOPHEN 325 MG TABLET PO PRN (11:15)
[2023-02-10] MEDS ORDERED: ONDANSETRON INJECTION 4 MG/2 ML (SDV) IV PRN (11:15)
[2023-02-10] MEDS ORDERED: diphenhydrAMINE INJ 50 MG/ML VIAL IVP PRN (11:15)
[2023-02-10] MEDS ORDERED: ONDANSETRON 4 MG ORAL DISSOLVE TABLET PO PRN (11:15)
--- NOTE | 2023-02-10 11:36 | Short Stay Summary ---
RETA WREN 02/10/23 1136: History of Present Illness History of Present Illness Reason for visit/HPI Patient is a 77-year-old female who was admitted to the ARU following spine surgery for spinal stenosis at [facility]. While she was in the ARU, she was found to be tachycardic, an ECG was obtained which showed a LBBB. Cardiology was consulted. Initial troponin measured on 02/08 was 0.087 which continued to rise over the next two days, measured at 7.972 today. On 02/10 she underwent cardiac catheterization which showed a thrombus in the RCA. Due to her recent spinal surgery, woundvac in place with bloody drainage, cardiology did not think that she could tolerate aggressive anticoagulation, recommended transfer to a tertiary center. She has been started on ASA, 80mg atorvastatin, and metoprolol while waiting for transfer. She denies any chest pain, SOB, and states that she has been asymptomatic through her stay. She is currently waiting on transport to be transferred to [facility]. Date of Admission 02/10 Date of Discharge 02/10 Time Seen by Provider: 11:41 Attending Physician Warren Gonzalez MD Admitting Physician Admitting Physician: Attending Physician: Anthony Mayers MD Consult Allergies and Home Medications Allergies Coded Allergies: No Allergy Information Available (Unverified , 02/07/23) Patient Home Medication List Acetaminophen (Tylenol Extra Strength) 500 Mg Tablet, 1,000 MG PO Q6H PRN for PAIN-MILD (1-4), (Reported) Entered as Reported by: NOE RICARDO on 02/07/23 1302 Last Action: Continued Amlodipine Besylate (Amlodipine Besylate) 5 Mg Tablet, 5 MG PO DAILY, (Reported) Entered as Reported by: NOE RICARDO on 02/07/23 1302 Last Action: Continued Aspirin (Aspirin EC) 81 Mg Tablet.dr, 81 MG PO DAILY Prescribed by: ROSEANNE TORRES on 02/10/23 1015 Atorvastatin Calcium (Atorvastatin Calcium) 80 Mg Tablet, 80 MG PO DAILY Prescribed by: ROSEANNE TORRES on 02/10/23 1015 Cetirizine HCl (Cetirizine HCl) 5 Mg Tablet, 5 MG PO DAILY, (Reported) Entered as Reported by: NOE RICARDO on 02/07/23 1302 Last Action: Converted Cholecalciferol (Vitamin D3) (Vitamin D3) 25 Mcg (1000 Unit) Tablet, 25 MCG PO DAILY, (Reported) Entered as Reported by: NOE RICARDO on 02/07/231301 Last Action: Continued Clopidogrel Bisulfate (Plavix) 75 Mg Tablet, 75 MG PO DAILY Prescribed by: ROSEANNE TORRES on 02/10/23 1117 Cyclobenzaprine HCl (Cyclobenzaprine HCl) 10 Mg Tablet, 10 MG PO Q8H PRN for SPASMS, (Reported) Entered as Reported by: NEO RICARDO on 02/07/231301 Last Action: Continued Famotidine (Acid Catalog Librarian (FAMOTIDINE)) 20 Mg Tablet, 20 MG PO DAILY PRN for HEARTBURN, (Reported) Entered as Reported by: NOE RICARDO on 02/07/231301 Last Action: Continued Hydrochlorothiazide (Hydrochlorothiazide) 25 Mg Tablet, 25 MG PO DAILY, (Reported) Entered as Reported by: NOE RICARDO on 02/07/231301 Last Action: Continued Metoprolol Tartrate (Metoprolol Tartrate) 25 Mg Tablet, 25 MG PO BID Prescribed by: ROSEANNE TORRES on 02/10/23 1015 Last Action: Continued Oxybutynin Chloride (Oxybutynin Chloride) 5 Mg Tablet, 5 MG PO BID, (Reported) Entered as Reported by: NOE RICARDO on 02/07/231301 Last Action: Continued Oxycodone HCl (Oxycodone HCl) 5 Mg Tablet, 5 MG PO Q4H PRN for PAIN-SEVERE (8- 10), (Reported) Entered as Reported by: NOE RICARDO on 02/07/231301 Last Action: Continued Rosuvastatin Calcium (Rosuvastatin Calcium) 5 Mg Tablet, 5 MG PO DAILY, (Reported) Entered as Reported by: NOE RICARDO on 02/07/231301 Last Action: Continued Valsartan/Hydrochlorothiazide (Valsartan-Hctz 160-12.5 mg Tab) 160 Mg-12.5 Mg Tablet, 1 EACH PO DAILY, (Reported) Entered as Reported by: NOE RIACRDO on 02/07/231301 Last Action: Converted Vit B Cmplx 3/FA/Vit C/Biotin ([place]-[facility]ri Rx Tablet) 1 Mg-60 Mg-300 Mcg Tablet, 1 EACH PO DAILY, (Reported) Entered as Reported by: NOE RICARDO on 02/07/23 1302 Last Action: Converted Past Mozzvfz-Ivuurw-Yrblrs Hx Surgeries Orthopedic Cardiovascular High Cholesterol, Hypertension Genitourinary Bladder Infection Musculoskeletal Arthritis, Chronic Back Pain Review of Systems Constitutional: No chills, No fever EENTM: No hearing loss, No blurred vision Respiratory: No cough, No dyspnea on exertion Cardiovascular: No chest pain, No palpitations Gastrointestinal: No nausea, No vomiting Genitourinary: No dysuria, No hematuria Musculoskeletal: No back pain, No neck pain Skin: No change in color, No change in hair/nails Psychiatric/Neurological: Denies Numbness, Denies Weakness Physical Exam Vital Signs Capillary Refill : Height, Weight, BMI Height: '" Weight: lbs. oz. kg; 34.00 BMI Method: General Appearance: No Apparent Distress, WD/WN HEENT: PERRL/EOMI Neck: Non Tender, Supple Respiratory: Chest Non Tender, Lungs Clear, Normal Breath Sounds Cardiovascular: Regular Rate, Rhythm, No Edema, Normal Peripheral Pulses Gastrointestinal: Non Tender, Soft Rectal: Deferred Back: No Vertebral Tenderness Extremity: Non Tender, No Calf Tenderness, No Pedal Edema Neurologic/Psychiatric: Alert, Oriented x3 Skin: Normal Color, Warm/Dry Lymphatic: No Adenopathy Clinical Quality Measures DVT/VTE Risk/Contraindication: Contraindications-Pharm: Other *list below* Other: spne surg Short Stay Diagnosis Discharge Diagnosis-Short Stay Admission Diagnosis: Subacute KS Final Discharge Diagnosis: Subacute KS Conclusion Conclusion/Plan Waiting on transport to transfer to [facility]. ROSEANNE TORRES DO 02/10/231955: History of Present Illness History of Present Illness Reason for visit/HPI CC: NSTEMI post op with active thrombus in RCA on cath HPI: This is a 77yoWF who was moved to ICU after cath revealed thrombus in RCA but no intervention performed due to recent spine surgery and antiplatelet/anticogulation who is awaiting transfer to [facility] where her spine surgeon is available due to high risk for bleeding and causing spinal hematoma. Date of Admission 02/10/23 Date of Discharge 02/10/23 Time Seen by Provider: 11:00 Allergies and Home Medications Allergies Coded Allergies: No Allergy Information Available (Unverified , 02/07/23) Patient Home Medication List Home Medication List Reviewed: Yes Acetaminophen (Tylenol Extra Strength) 500 Mg Tablet, 1,000 MG PO Q6H PRN for PAIN-MILD (1-4), (Reported) Entered as Reported by: NOE RICARDO on 02/07/231301 Last Action: Continued Amlodipine Besylate (Amlodipine Besylate) 5 Mg Tablet, 5 MG PO DAILY, (Reported) Entered as Reported by: NOE RICARDO on 02/07/231301 Last Action: Continued Aspirin (Aspirin EC) 81 Mg Tablet.dr, 81 MG PO DAILY Prescribed by: ROSEANNE TORRES on 02/10/23 101 Atorvastatin Calcium (Atorvastatin Calcium) 80 Mg Tablet, 80 MG PO DAILY Prescribed by: ROSEANNE TORRES on 02/10/23 1015 Cetirizine HCl (Cetirizine HCl) 5 Mg Tablet, 5 MG PO DAILY, (Reported) Entered as Reported by: NOE RICARDO on 02/07/231301 Last Action: Converted Cholecalciferol (Vitamin D3) (Vitamin D3) 25 Mcg (1000 Unit) Tablet, 25 MCG PO DAILY, (Reported) Entered as Reported by: NOE RICARDO on 02/07/231301 Last Action: Continued Clopidogrel Bisulfate (Plavix) 75 Mg Tablet, 75 MG PO DAILY Prescribed by: ROSEANNE TORRES on 02/10/23 1117 Cyclobenzaprine HCl (Cyclobenzaprine HCl) 10 Mg Tablet, 10 MG PO Q8H PRN for SPASMS, (Reported) Entered as Reported by: NOE RICARDO on 02/07/231301 Last Action: Continued Famotidine (Acid Catalog Librarian (FAMOTIDINE)) 20 Mg Tablet, 20 MG PO DAILY PRN for HEARTBURN, (Reported) Entered as Reported by: NOE RICARDO on 02/07/231301 Last Action: Continued Hydrochlorothiazide (Hydrochlorothiazide) 25 Mg Tablet, 25 MG PO DAILY, (Reported) Entered as Reported by: NOE RICARDO on 02/07/231301 Last Action: Continued Metoprolol Tartrate (Metoprolol Tartrate) 25 Mg Tablet, 25 MG PO BID Prescribed by: ROSEANNE TORRES on 02/10/23 1015 Last Action: Continued Oxybutynin Chloride (Oxybutynin Chloride) 5 Mg Tablet, 5 MG PO BID, (Reported) Entered as Reported by: NOE RICARDO on 02/07/231301 Last Action: Continued Oxycodone HCl (Oxycodone HCl) 5 Mg Tablet, 5 MG PO Q4H PRN for PAIN-SEVERE (8- 10), (Reported) Entered as Reported by: NOE RICARDO on 02/07/231301 Last Action: Continued Rosuvastatin Calcium (Rosuvastatin Calcium) 5 Mg Tablet, 5 MG PO DAILY, (Reported) Entered as Reported by: NOE RICARDO on 02/07/231301 Last Action: Continued Valsartan/Hydrochlorothiazide (Valsartan-Hctz 160-12.5 mg Tab) 160 Mg-12.5 Mg Tablet, 1 EACH PO DAILY, (Reported) Entered as Reported by: NOE RICARDO on 02/07/231301 Last Action: Converted Vit B Cmplx 3/FA/Vit C/Biotin ([place]-[facility]ri Rx Tablet) 1 Mg-60 Mg-300 Mcg Tablet, 1 EACH PO DAILY, (Reported) Entered as Reported by: NOE RICARDO on 02/07/231301 Last Action: Converted Past Vlurmjp-Rmwdfc-Ujmspx Hx Patient Social History Marrital Status: Employed/Student: retired Smoking Status: Never a Smoker Surgeries Orthopedic Cardiovascular High Cholesterol, Hypertension Endocrine Endocrine Disorders: Diabetes, Non-Insulin dep Review of Systems Constitutional: see HPI, malaise, weakness Physical Exam General Appearance: No Apparent Distress, WD/WN, Chronically ill Respiratory: Lungs Clear, Normal Breath Sounds Cardiovascular: Regular Rate, Rhythm Short Stay Diagnosis Discharge Diagnosis-Short Stay Admission Diagnosis: NSTEMI post op Final Discharge Diagnosis: NSTEMI due to acute thrombus in RCA on cath Spine surgery 02/05/[address] Richard HTN HLP DM Conclusion Conclusion/Plan Move to [facility] Supervisory-Addendum Brief Verification & Attestation Participated in pt care: history, MDM, physical Personally performed: exam, history, MDM, supervision of care Care discussed with: Medical Student Procedures: n/a Results interpretation: Verified all documentation Verification and Attestation of Medical Student E/M Service A medical student performed and documented this service in my presence. I reviewed and verified all information documented by the medical student and made modifications to such information, when appropriate. I personally performed the physical exam and medical decision making. Roseanne Torres, Feb 10, 2023,19:56 RETA WREN Feb 10, 2023 11:36 ROSEANNE TORRES DO Feb 10, 2023 19:56
[2023-02-10] MEDS ORDERED: CYCLOBENZAPRINE 10 MG TABLET PO PRN (11:45)
[2023-02-10] MEDS ORDERED: ASPIRIN 325 MG TABLET PO ONE (12:00)
[2023-02-10] MEDS ORDERED: RT-ALBUTEROL SULF 2.5 MG/3 ML PRE-MIX VIAL INH PRN (13:30)
[2023-02-10] MEDS ORDERED: RT-ALBUTEROL SULF 2.5 MG/3 ML PRE-MIX VIAL INH SCH (15:00)
[2023-02-10] MEDS ORDERED: inSUlin ASPART 1 UNIT/0.01 ML (PER UNIT) SC SCH (16:00)
[2023-02-10] MEDS ORDERED: SENNOSIDES 8.6 MG TABLET PO SCH (21:00)
[2023-02-10] MEDS ORDERED: meTOprolol TARTRATE (IR) 25 MG TABLET PO SCH ×2 (21:00)
[2023-02-10] MEDS ORDERED: OXYBUTYNIN 5 MG TABLET PO SCH (21:00)
[2023-02-10] MEDS ORDERED: DOCUSATE SODIUM 100 MG CAPSULE PO SCH (21:00)
[2023-02-11] MEDS ORDERED: POTASSIUM CL 10MEQ/50ML IVPB 50 ML IV SCH (06:00)
[2023-02-11] MEDS ORDERED: MAGNESIUM 1 GM/100 ML IVPB 100 ML IV SCH (06:00)
[2023-02-11] MEDS ORDERED: POTASSIUM CHLORIDE 20 MEQ TABLET PO SCH (06:00)
[2023-02-11] MEDS ORDERED: HYDROCHLOROTHIAZIDE PO SCH (09:00)
[2023-02-11] MEDS ORDERED: NON-FORMULARY MEDICATION 1 EA EA (Cetirizine HCl 5 MG) PO SCH (09:00)
[2023-02-11] MEDS ORDERED: BIOTIN PO SCH (09:00)
[2023-02-11] MEDS ORDERED: VALSARTAN 80 MG (DIOVAN) TAB PO SCH (09:00)
[2023-02-11] MEDS ORDERED: [UNRECOGNIZED DRUG - OTHER] PO SCH (09:00)
[2023-02-11] MEDS ORDERED: [UNRECOGNIZED DRUG - OTHER] PO SCH (09:00)
[2023-02-11] MEDS ORDERED: ROSUVASTATIN 5 MG TABLET PO SCH (09:00)
[2023-02-11] MEDS ORDERED: ASPIRIN enteric coated 81MG TABLET PO SCH (09:00)
[2023-02-11] MEDS ORDERED: VIT B CMPLX PO SCH (09:00)
[2023-02-11] MEDS ORDERED: VALSARTAN PO SCH (09:00)
[2023-02-11] MEDS ORDERED: amLODIPine 5 MG TABLET PO SCH (09:00)
[2023-02-11] MEDS ORDERED: LORATADINE 10 MG TABLET PO SCH (09:00)
[2023-02-11] MEDS ORDERED: VITAMIN D3 25 MCG (1,000 UNITS) TABLET PO SCH (09:00)
[2023-02-13] MEDS ORDERED: METO-333 PO (16:39)
[2023-02-13] MEDS ORDERED: ACET-93 PO (16:39)
[2023-02-13] MEDS ORDERED: ASPI-999 PO (16:39)
[2023-02-13] MEDS ORDERED: ROSU10TA28 PO (16:39)
== END 2023-02-10 16:00 | disposition other institution (70) ==
LOC: CATH 08:46 → ICU 10:30 → CATH 16:00
PROVIDERS: ATTEND Internal Medicine Cardiovascular Disease
DX: I21.4 Non-ST elevation (NSTEMI) myocardial infarction (principal); I21.9 Acute myocardial infarction, unspecified; I10 Essential (primary) hypertension; E11.9 Type 2 diabetes mellitus without complications; I25.10 Atherosclerotic heart disease of native coronary artery without angina pectoris; E78.5 Hyperlipidemia, unspecified; M48.062 Spinal stenosis, lumbar region with neurogenic claudication; Z98.890 Other specified postprocedural states; Z79.82 Long term (current) use of aspirin; Z79.01 Long term (current) use of anticoagulants; Z79.899 Other long term (current) drug therapy
CPT/HCPCS: 93458; 94640; 94664; C1894